=== PATIENT | male | born 1960 | race Hispanic/Latino ===

== ENCOUNTER 2018-08-11 06:49 | Day surgery (SDC) | payer BC ==
[2018-08-10 13:50] LABS: Absolute Monocytes 0.8 K/uL (0.1-1.3); Basophils % 0.9 % (0-1.3); Eosinophils % 2.3 % (0-4.4); Hematocrit 42.6 % (39.6-49.0); Lymphocytes % 22.2 % (15.3-44.8); MCH 30.5 pg (27.0-35.0); MPV 10.9 fL (7.6-11.3); Monocytes % 8.8 % (3.3-12.3); RBC Red Blood Cell Count 4.95 M/uL (4.33-5.43)
[2018-08-10 13:55] LABS: Potassium 3.9 mmol/L (3.5-5.1)
--- NOTE | 2018-08-10 14:00 | RAD REPORT ---
EXAM DESCRIPTION: RAD - Chest Pa And Lat (2 Views) - 08/10/2018 1:50 pm CLINICAL HISTORY: Preop chest, facial soft tissue mass removal pending, hypertension history COMPARISON: October 2016 TECHNIQUE: PA and lateral views of the chest were obtained. FINDINGS: The lungs are clear of mass, failure or focal infiltrate. Chronic interstitial lung diseas e is present and stable. Heart size is normal and central vasculature is within normal limits. No pleural effusion or pneumothorax seen. No acute bony finding noted. No aortic abnormality. IMPRESSION: No acute cardiopulmonary process. Prominent interstitial lung markings similar to comparison.
--- NOTE | 2018-08-10 17:45 | EKG ---
Test Date: 2018-08-10 Test Time: 13:32:32 Chair Inspector And Leveler: AG/S MEASUREMENT RESULTS: Intervals: Rate: 60 AK: 184 QRSD: 116 QT: 410 QTc: 410 [place]: P: 27 AK: 184 QRS: -38 T: 70 INTERPRETIVE STATEMENTS: Normal sinus rhythm Left axis deviation Nonspecific T wave abnormality Abnormal ECG Compared to ECG 10/26/2016 16:19:50 T-wave abnormality now present Myocardial infarct finding no longer present Electronically Signed On 08-10-18 17:44:57 CARNIVAL WORKER by Glenn Brantley
--- OUTSIDE RECORDS SUMMARY | 2018-08-11 06:51 | XMS REPORT | Continuity of Care Document ---
:1960 Author Organization Interface Problems Problem Status Onset Classification Date Comments Source Date Reported Z12.11 Active 06/23/20 [place] 18 R10.9 - Active 06/24/20 [facility] UNSPECIFIED 17 [place] ABDOMINAL PAIN PreDiabetes Active Problem 02/26/2018 [facility] Diabetes Active Problem 02/26/2018 [facility] Group Hypertension Active Problem 02/26/2018 [facility] Obesity Active Problem 02/26/2018 [facility] Onychomycosis Active Problem 02/26/2018 [facility] Group Medications Medication Details Route Status Patient Ordering Order Source Instructions Provider Date carvedilol 6.25 6.25 mg=1 tab, Active MH mg oral tablet PO, BID, for 018 Medical blood Group pressure, # 180 tab, 1 Refill(s), Pharmacy: [id number], portuguese label 24 HR Metformin 750 mg=1 tab, Active MH hydrochloride PO, Dinner, 018 Medical 750 MG Extended with evening Group Release Tablet meal to prevent diabetes, # 90 tab, 3 Refill(s), Pharmacy: [facility] [id number], portuguese label Blood Pressure 1 ea, MISC, Active Monitor Upper ONCE, any 018 Medical Arm Misc/Other preferred Group brand to check BP once a day as directed for Hypertension I10, # 1 ea, 0 Refill(s) terbinafine 250 250 mg=1 tab, Active MH mg oral tablet PO, Daily, for 018 Medical toenails, X 90 Group day, # 90 tab, 0 Refill(s), Pharmacy: [facility] [id number], portuguese label carvedilol 6.25 See Active MH mg oral tablet Instructions, 018 Medical RAMAKRISHNA NICOLLE Group TABLETA POR LA BOCA DOS VECES AL RYAN(CADA 12 HORAS) PARA PRESSION MITCHEL, # 60 tab, 0 Refill(s), Pharmacy: [facility] [id number] carvedilol 6.25 6.25 mg=1 tab, Inactive MH mg oral tablet PO, BID, for 018 Medical blood Group pressure, # 60 tab, 0 Refill(s), Pharmacy: [facility] [id number], portuguese label carvedilol 6.25 6.25 mg=1 tab, Active MH mg oral tablet PO, BID, for 018 Medical blood Group pressure, # 180 tab, 1 Refill(s), Pharmacy: [facility] [id number], portuguese label carvedilol 6.25 6.25 mg=1 tab, Active MH mg oral tablet PO, BID, # 60 017 Medical tab, 0 Group Refill(s), Pharmacy: [facility] [id number] Allergies, Adverse Reactions, Alerts Substance Category Reaction Severity Reaction Status Date Comments Source type Reported lisinopril Assertion Cough, NOS Drug Active allergy Medical Group penicillins Assertion Anaphylaxis Drug Active allergy Medical Group Immunizations Immunization Date Given Site Status Last Comments Source Updated pneumococcal 02/23/2018 Left completed [facility] 23-valent vaccine Deltoid Group zoster vaccine 01/13/2017 Right Upper completed [place] Result [facility] live<sup>1</sup> Arm Comment: PT Gayathri waited 10 , Medical minutes Group after vaccine no pain,or adverse reaction seen Results Order Results Value Reference Date Interpretation Comments Source Name Range Renal Renal PROCEDURE: RENAL STONE CT 06/24 - [facility] CT /2016 - [place] [facility] CLINICAL INDICATION: R10.9, M54.5. Left flank pain, acute left-sided low back pain. Read by: Robby Ham MD Dictated Date/time: 06/24/17 14:22 Electronically Signed by: Robby Ham MD 06/24/17 15:03 FINAL REPORT COMPARISON: None. TECHNIQUE: Unenhanced axial helical CT images of the abdomen and pelvis were performed. Reformatted coronal and sagittal images are available. CT Radiation Dose DLP 961.60 mGy-cm. Please note that lack of intravenous contrast limits evaluation of the organs and vasculature. Lack of oral contrast limits evaluation of the bowel. FINDINGS: LUNG BASES: There is mild elevation of the left diaphragm. Minimal dependent subsegmental atelectasis in both lower lobes. The heart size is upper limits of normal. ORGANS: There is diffuse fatty infiltration of the liver. The liver is mildly enlarged measuring a maximal craniocaudal dimension of approximately 18 cm. No demonstrable abnormality of the gallbladder, pancreas, spleen, adrenal glands and kidneys. No demonstrable urinary tract calculus. No hydronephrosis. BOWEL: There is a nonobstructive bowel gas pattern. Food debris in the lumen of the stomach limiting evaluation of the stomach. Mild colonic diverticulosis primarily involving the sigmoid colon without demonstrable acute diverticulitis. No additional demonstrable bowel abnormality. Normal appendix. PERITONEUM: There is no free intraperitoneal air or ascites. RETROPERITONEUM: The caliber of the abdominal aorta is within normal limits. There is no pathologic retroperitoneal lymphadenopathy. PELVIS: Mild enlargement of the prostate gland measuring a maximal diameter of approximately 5 cm containing a small number of subcentimeter central calcifications. No demonstrable abnormality of the se keeley vesicles or poorly distended urinary bladder. Mild fatty prominence of the mid to inferior aspect of the right spermatic cord measuring a maximal diameter of approximately 1.7 cm may be due to nor mal variation or a lipoma. Mild fatty prominence of the entire length of the visualized left spermatic cord measuring a maximal diameter of approximately 2.1 cm may be due to normal variation, a lipoma or herniation of fat. Minimal calcification of the left internal iliac artery. MUSCULOSKELETAL: Tiny umbilical hernia containing fat measuring a width of approximately 9 mm. Degenerative changes of the spine and both sacroiliac joints. Spinal stenosis at L4-L5 secondary to degener ative changes. This would be better assessed with a lumbar spine MRI. Small number of scattered subcentimeter sclerotic foci in the marrow of the pelvis likely benign bone islands. Few tiny cysts in the marrow of the right femoral head. IMPRESSION: 1. No demonstrable urinary tract calculus. No hydronephrosis. 2. Fatty infiltration of the liver. 3. Mild hepatomegaly. 4. Colonic diverticulosis without demonstrable acute diverticulitis. 5. Enlarged prostate gland. 6. Mild fatty prominence of the spermatic cords. Primary differential considerations as described above. 7. Tiny umbilical hernia containing fat. 8. Degenerative changes of the spine and sacroiliac joints. SL: 16 Vital Signs Vital Sign Value Date Comments Source Systolic (mm Hg) 153 02/23/2018 [facility] Group Diastolic (mm Hg) 90 02/23/2018 [facility] Group Height 162.56 cm 02/23/2018 Medical Group Weight 103.324 02/23/2018 Medical Group BMI Calculated 39.1 02/23/2018 Medical Group Heart Rate 65 02/23/2018 [facility] Group Temperature Oral (F) 98.5 F 02/23/2018 Medical Group Systolic (mm Hg) 140 09/04/2017 Medical Group Diastolic (mm Hg) 94 09/04/2017 Medical Group Temperature Oral (F) 97.6 F 09/04/2017 Medical Group Heart Rate 64 09/04/2017 Medical Group Weight 100.455 09/04/2017 Medical Group BMI Calculated 36.85 09/04/2017 Medical Group Height 165.1 cm 09/04/2017 Medical Group Systolic (mm Hg) 173 09/04/2017 Medical Group Diastolic (mm Hg) 102 09/04/2017 Medical Group Encounters Location Location Encounter Encounter Reason Attending ADM DC Status Source Details Type Number For Provider Date Date Visit Outpatient [id number] BEKA 10/31 [facility] [place] Out[place] [id number] BEKA 01/13 [facility] [place] Outpatient [id number] BEKA 06/02 [facility] [place] Outpatient [id number] AKUVI 06/19 [facility] [place] [facility] Outpatient [id number] AKUVI 06/24 [facility] [place] [facility] Outpt Diag [id number] Akuvi 06/24 06/25 [facility] [place] [facility] Phone [id number] 08/14 08/16 Primary Message /2016 [facility] Outpatient [id number] BEKA 09/04 [facility] [id number] Beka 09/04 09/05 Primary Vences Jr /2017 [facility] Phone [id number] 02/03 02/05 Primary Message /2017 [facility] Outpatient [id number] BEKA 02/23 [facility] Outpatient [id number] Beka 02/23 02/24 Primary Vences /2017 [facility] Outpatient [id number] BEKA 03/19 Active [facility] [place] Outpatient [id number] BEKA 05/14 Active [facility] [place] Outpatient [id number] MOHUMMED 06/17 [facility] [place] Outpatient [id number] [facility] 07/02 [facility] [place] Procedures Procedure Code Date Perfomer Comments Source Colonoscopy and [id number] 08/31/2012 + polyps. [facility] biopsy of repeat 5 [place] colon<sup>1</sup> years Colonoscopy and [id number] 08/31/2012 + polyps. Medical Group biopsy of repeat 5 colon<sup>1</sup> years Appendectomy [id number] [facility] [place] Hernia, inguinal, [id number] [facility] left [place] Appendectomy [id number] Medical Group Hernia, inguinal, [id number] Medical Group left
--- OUTSIDE RECORDS SUMMARY | 2018-08-11 06:51 | XMS REPORT | Summary of Care ---
:1960 Author Organization [facility] Address [address] [address]- Encounter HQ Pantera_que(FIN) [id number] Date(s): 06/24/17 - 06/24/17 [facility] [address] [facility] [place] [address]- [phone] Discharge Disposition: Home or Self Care Attending Physician: Melquiades Shi MSN, RN, COLOR PRINT INSPECTOR-C Vital Signs No data available for this section Problem List Condition Effective Dates Status Health Status Informant PreDiabetes(Confirmed) Active Hypertension(Confirmed) Active Obesity(Confirmed) Active Allergies, Adverse Reactions, Alerts Substance Reaction Severity Status lisinopril Cough, NOS Active penicillins Anaphylaxis Active Medications No data available for this section Results No data available for this section Immunizations Given and Recorded Vaccine Date Status Refusal Reason zoster vaccine live1 01/13/17 Given 1Result Comment: PT waited 10 minutes after vaccine no pain,or adverse reaction seen Procedures Procedure Date Related Diagnosis Body Site Colonoscopy and biopsy of colon1 2012 Appendectomy Hernia, inguinal, left 1+ polyps. 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 Frequency: 1-2 times per week.2 Smoking Status Never smoker; Exposure to Tobacco Smoke None; Cigarette Smoking Last 365 Days No; Reg Smoking Cessation Counseling No 1Married. 3 children.24 drinks per week Assessment and Plan No data available for this section
--- OUTSIDE RECORDS SUMMARY | 2018-08-11 06:52 | XMS REPORT | Summary of Care ---
:1960 Author Organization [facility] Address [address] [place] [address], [address] [address]- Encounter HQ Michael(FIN) [id number] Date(s): 02/23/18 - 02/23/18 [facility] [address] [place] [address], [address] [address]- [phone] Discharge Disposition: Home or Self Care Attending Physician: Jacobo Narvaez MD Vital Signs Most recent to oldest [Reference Range]: 1 Height 162.56 cm (02/23/18 10:50 AM) Temperature Oral [96.4-99.1 DegF] 98.5 DegF (02/23/18 10:50 AM) Blood Pressure [90-140/60-90 mmHg] 153/90 mmHg *HI* (02/23/18 10:50 AM) Peripheral Pulse Rate [60-100 bpm] 65 bpm (02/23/18 10:50 AM) Weight 103.324 kg (02/23/18 10:50 AM) Body Mass Index 39.1 m2 (02/23/18 10:50 AM) Problem List Condition Effective Dates Status Health Status Informant PreDiabetes(Confirmed) Active Diabetes(Confirmed) Active Hypertension(Confirmed) Active Obesity(Confirmed) Active Onychomycosis(Confirmed) Active Allergies, Adverse Reactions, Alerts Substance Reaction Severity Status penicillins Anaphylaxis Active lisinopril Cough, NOS Active Medications Blood Pressure Monitor Upper Arm Misc/Other 1 ea, MISC, ONCE, any preferred brand to check BP once a day as directed for Hypertension I10, # 1 ea, 0 Refill(s) Start Date: 02/23/18 Status: Orderedcarvedilol 6.25 mg oral tablet 6.25 mg=1 tab, PO, BID, for blood pressure, # 180 tab, 1 Refill(s), Pharmacy: [id number], macanese label Start Date: 02/23/18 Status: OrderedmetFORMIN 750 mg oral tablet, extended release 750 mg=1 tab, PO, Dinner, with evening meal to prevent diabetes, # 90 tab, 3 Refill(s), Pharmacy: [facility] [id number], macanese label Start Date: 02/23/18 Status: Orderedterbinafine 250 mg oral tablet 250 mg=1 tab, PO, Daily, for toenails, X 90 day, # 90 tab, 0 Refill(s), Pharmacy : [facility] [id number], macanese label Start Date: 02/23/18 Stop Date: 05/24/18 Status: Ordered Results No data available for this section Immunizations Given and Recorded Vaccine Date Status Refusal Reason pneumococcal 23-valent vaccine 02/23/18 Given zoster vaccine live1 01/13/17 Given 1Result Comment: PT waited 10 minutes after vaccine no pain,or adverse reaction seen Procedures Procedure Date Related Diagnosis Body Site Status Colonoscopy and biopsy of colon2012 Completed Appendectomy Completed Hernia, inguinal, left Completed 1+ polyps. 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 Frequency: 1-2 times per week.2 Smoking Status Never smoker; Exposure to Tobacco Smoke None; Cigarette Smoking Last 365 Days No; Reg Smoking Cessation Counseling No entered on: 02/23/18 1Married. 3 children.24 drinks per week Assessment and Plan No data available for this section
--- OUTSIDE RECORDS SUMMARY | 2018-08-11 06:52 | XMS REPORT | Summary of Care ---
:1960 Author Organization [facility] Primary Care [facility] Address [address] [place] [address], [address] [address]- Encounter HQ Pantera_que(FIN) [id number] Date(s): 09/04/17 - 09/04/17 [facility] [address] [place] [address], [address] [id number]- [phone] Discharge Disposition: Home or Self Care Attending Physician: Jacobo Narvaez MD Vital Signs Most recent to oldest [Reference Range]: 1 2 Height 165.1 cm (09/04/17 8:27 AM) Temperature Oral [96.4-99.1 DegF] 97.6 DegF (09/04/17 8:27 AM) Blood Pressure [90-140/60-90 mmHg] 140/94 mmHg 173/102 mmHg (09/04/17 8:34 AM) *HI* (09/04/17 8:27 AM) Peripheral Pulse Rate [60-100 bpm] 64 bpm (09/04/17 8:27 AM) Weight 100.455 kg (09/04/17 8:27 AM) Body Mass Index 36.85 m2 (09/04/17 8:27 AM) Problem List Condition Effective Dates Status Health Status Informant PreDiabetes(Confirmed) Active Hypertension(Confirmed) Active Obesity(Confirmed) Active Allergies, Adverse Reactions, Alerts Substance Reaction Severity Status penicillins Anaphylaxis Active lisinopril Cough, NOS Active Medications carvedilol 6.25 mg oral tablet 6.25 mg=1 tab, PO, BID, for blood pressure, # 180 tab, 1 Refill(s), Pharmacy: [facility] [id number], comoran label Start Date: 09/04/17 Status: Ordered Results No data available for this section Immunizations Given and Recorded Vaccine Date Status Refusal Reason zoster vaccine live1 5/16/17 Given 1Result Comment: PT waited 10 minutes after vaccine no pain,or adverse reaction seen Procedures Procedure Date Related Diagnosis Body Site Colonoscopy and biopsy of colon1 2012 Appendectomy Hernia, inguinal, left 1+ polyps. 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 Frequency: 1-2 times per week.2 Smoking Status Never smoker; Exposure to Tobacco Smoke None; Cigarette Smoking Last 365 Days No; Reg Smoking Cessation Counseling No 1Married. 3 children.24 drinks per week Assessment and Plan No data available for this section
--- OUTSIDE RECORDS SUMMARY | 2018-08-11 06:52 | XMS REPORT | Summary of Care ---
:1960 Author Organization [facility] Primary Care [facility] Address [address] [place] [address], [address] [address]- Encounter HQ Pantera_que(FIN) [id number] Date(s): 09/04/17 - 09/04/17 [facility] [address] [place] [address], [address] [address]- [phone] Discharge Disposition: Home or Self Care Attending [...] pressure, # 180 tab, 1 Refill(s), Pharmacy: [facility] [id number], slovak label Start Date: 09/04/17 Status: Ordered Results No data available for this section Immunizations Given and Recorded Vaccine Date Status Refusal Reason zoster vaccine live1 5/16/17 Given 1Result Comment: PT waited 10 minutes after vaccine no pain,or adverse reaction seen Procedures Procedure Date Related Diagnosis Body Site Status Colonoscopy and biopsy of colon1 2012 Completed Appendectomy Completed Hernia, inguinal, left Completed 1+ polyps. 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 Frequency: 1-2 times per week.2 Smoking Status Never smoker; Exposure to Tobacco Smoke None; Cigarette Smoking Last 365 Days No; Reg Smoking Cessation Counseling No entered on: 09/04/17 1Married. 3 children.24 drinks per week Assessment and Plan No data available for this section
--- OUTSIDE RECORDS SUMMARY | 2018-08-11 06:52 | XMS REPORT | Summary of Care ---
:1960 Author Organization [facility] Primary Care [facility] Address [address] [place] [address], [address] [place] [address]- Encounter HQ Danyntr_que(FIN) [id number] Date(s): 08/14/17 - 08/15/17 [facility] [address] [place] [address], [address] [place] [address]- [phone] Vital Signs No data available for this section Problem List Condition Effective Dates Status Health Status Informant PreDiabetes(Confirmed) Active Hypertension(Confirmed) Active Obesity(Confirmed) Active Allergies, Adverse Reactions, Alerts Substance Reaction Severity Status penicillins Anaphylaxis Active lisinopril Cough, NOS Active Medications carvedilol 6.25 mg oral tablet 6.25 mg=1 tab, PO, BID, # 60 tab, 0 Refill(s), Pharmacy: [facility] [id number] Start Date: 08/15/17 Status: Ordered Results No data available for [...] Type Response Employment/School Status: Employed. 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 Frequency: 1-2 times per week.2 Smoking Status Never smoker; Exposure to Tobacco Smoke None; Cigarette Smoking Last 365 Days No; Reg Smoking Cessation Counseling No 1Married. 3 children.24 drinks per week Assessment and Plan No data available for this section
--- OUTSIDE RECORDS SUMMARY | 2018-08-11 06:52 | XMS REPORT | Summary of Care ---
:1960 Author Organization [facility] Address [address] [place] [address], [address] [address]- Encounter HQ Encntr_alimichelle(FIN) [id number] Date(s): 02/03/18 - 02/04/18 [facility] [address] [place] [address], [address] [address] [phone] Vital Signs No data available for this section Problem List Condition Effective Dates Status Health Status Informant PreDiabetes(Confirmed) Active Hypertension(Confirmed) Active Obesity(Confirmed) Active Allergies, Adverse Reactions, Alerts Substance Reaction Severity Status penicillins Anaphylaxis Active lisinopril Cough, NOS Active Medications carvedilol 6.25 mg oral tablet 6.25 mg=1 tab, PO, BID, for blood pressure, # 60 tab, 0 Refill(s), Pharmacy: [facility], tristanian label Start Date: 02/04/18 Stop Date: 02/04/18 Status: Completedcarvedilol 6.25 mg oral tablet See Instructions, RAMAKRISHNA NICOLLE TABLETA POR LA BOCA DOS VECES AL RYAN(CADA 12 HORAS) PARA PRESSION MITCHEL, # 60 tab, 0 Refill(s), Pharmacy: [facility] [id number] Start Date: 02/04/18 Status: Ordered Results No data available for [...] Type Response Employment/School Status: Employed. 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 Frequency: 1-2 times per week.2 Smoking Status Never smoker; Exposure to Tobacco Smoke None; Cigarette Smoking Last 365 Days No; Reg Smoking Cessation Counseling No entered on: 09/04/17 1Married. 3 children.24 drinks per week Assessment and Plan No data available for this section
[2018-08-11] MEDS ORDERED: CIPROFLOXACIN 400mg IV 400 MG/200 ML BAG IV ONE (07:29)
[2018-08-11] MEDS ORDERED: Ringers Lactate 1,000 ML IV ONE (07:29)
[2018-08-11] MEDS ORDERED: MIDAZOLAM HCL 2 MG/2 ML INJ ONE (08:14)
[2018-08-11] MEDS ORDERED: PROPOFOL 200 MG/20 ML VIAL IV ONE (08:14)
[2018-08-11] MEDS ORDERED: FENTANYL CITR 100 MCG/2 ML ONE (08:14)
[2018-08-11] MEDS ORDERED: LIDOCAINE 2% MPF 5 ML VIAL ONE (08:15)
[2018-08-11] MEDS ORDERED: KETOROLAC 30 MG/ML INJ ONE (09:40)
--- NOTE | 2018-08-11 09:49 | P.BOP ---
Preoperative diagnosis: right facial temporal tender subQ mass Postoperative diagnosis: same Primary procedure: Excisional biopsy of right facial temporal tender subQ mass 6 x 4.5 cm Estimated blood loss: <20cc Specimen: mass, Findings: mass with some cystic component Anesthesia: General Complications: None Transferred to: Recovery Room Condition: Good
[2018-08-11] MEDS ORDERED: CODEINE 30MG/APAP 300MG TAB ONE (11:02)
--- NOTE | 2018-08-25 13:29 | DS ---
Date of Discharge: 08/11/2018 Diagnosis: Right facial temporal tender subcutaneous mass. Procedure: Excisional biopsy of right facial temporal tender subcutaneous. Disposition: Home. Activity: As tolerated. No heavy lifting. Discharge Instructions: Follow up in my office in 1 week. Call for appointment [phone]. Keep area dry for 48 hours, then may shower. Cold compresses over the area for the next 24 hours. Medications: See orders. TIERA/AJAY Voice ID: [id number] Report ID: [id number]
--- NOTE | 2018-08-25 13:29 | OP ---
Date of Procedure: 08/11/2018 Surgeon: Easton Garcia MD Preoperative Diagnosis: Right facial temporal tender subcutaneous mass. Postoperative Diagnosis: Right facial temporal tender subcutaneous mass. Procedure: Excisional biopsy of right facial temporal tender subcutaneous mass, 6 x 4.5 cm. Anesthesia: General. Findings: The patient has a mass with a cystic component, it is a combination of the 2. Goes into t he anterior area of the ear right in the temporal region, it is large, it is attached to the muscle i tself, does not penetrate the muscle. Indications: This is the case of a male who comes to us with a tender, increasing, enlarged temporal mass. The patient wants that excised, tender, given his pain and discomfort. Benefits, alternative s, and risks of excision were fully explained to the patient, which include but not limited to infect ion, bleeding, damage to adjacent structures, anesthesia complication, recurrence, VT, and even . He also understands this may not relieve any symptoms. He might need more than one surgical inter vention. He has some sensory deficit in that area. He was advised to discuss that with his neurolog ist. Description Of Procedure: The patient was brought to the operating room, placed in supine position. Anesthesia was done without complication in holding area. The patient marked the area with me, so w e prepped the area in usual sterile fashion. Time-out was called. An incision was made in the skin and we went to the subcutaneous tissue. We noticed this area to be large, it was thin, but since the patient is under anesthesia, we were able to carefully with blunt dissection identify the mass and r emove it completely. Some of that mass is attached to the fascia of the muscle, but the muscle is in tact. The mass was excised. When we put it all together, it was about 6 x 4.5 cm. The area was irr igated. Hemostasis obtained. This was closed in layers using the 3-0 chromic after injecting local anesthetic. The patient tolerated the procedure well. The masses have some cystic and solid compone nt to it. Etiology of that is unknown. He was sent for the pathologist. The patient tolerated the procedure well. Pressure dressing applied over the area. The patient was sent to Recovery in stable condition. TIERA/AJAY Voice ID: [id number] Report ID: [id number]
== END 2018-08-11 11:28 | disposition home or self-care (01) ==
LOC: OR 06:49
PROVIDERS: ATTEND Surgery
PROC: 0JB10ZZ Excision of Face Subcutaneous Tissue and Fascia, Open Approach (ICD-10-PCS; principal; 2018-08-11 08:45)
DX: R22.0 Localized swelling, mass and lump, head (principal); I10 Essential (primary) hypertension; Z88.0 Allergy status to penicillin
CPT/HCPCS: 36415; 71046; 80048; 85025; 88304; 88305; 93005; J0744; J2250; J2704; J3010

== ENCOUNTER 2019-01-24 07:19 | Emergency (ER) | payer BC ==
--- OUTSIDE RECORDS SUMMARY | 2019-01-24 07:23 | XMS REPORT | Continuity of Care Document ---
:1960 Author Organization Interface Problems Problem Status Onset Classification Date Comments Source Date Reported Encounter for 07/08/20 01/19/2019 [facility] screening for 18 malignant neoplasm of colon Z12.11 Active 06/23/20 [place] 18 R10.9 - Active 06/24/20 [facility] UNSPECIFIED 17 [place] ABDOMINAL PAIN PreDiabetes Resolved Problem 01/19/2019 [facility] Hypertension Active Problem 01/19/2019 [facility] Obesity Active Problem 01/19/2019 [facility] Diabetes Active Problem 02/26/2018 [facility] Group Onychomycosis Active Problem 01/19/2019 [facility], [place] DM (<span Active Problem 01/19/2019 Medical ID="[id number]" Group, >Confirmed</span> [place] ) Diabetic Active Problem 01/19/2019 [facility] autonomic Group, neuropathy [place] HTN (<span Active Problem 01/19/2019 Medical ID="[id number]" Group, >Confirmed</span> [place] ) Erectile disorder Active Problem 01/19/2019 Medical due to DIABETES Group, in male [place] Diverticulosis of 01/19/2019 [place] large intestine without perforation or abscess without bleeding Benign neoplasm 01/19/2019 [facility] of transverse colon Second degree 01/19/2019 [facility] hemorrhoids Benign neoplasm 01/19/2019 [facility] of rectum 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 Essential 01/19/2019 [facility] hypertension Obesity, 01/19/2019 [place] unspecified termination 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 01/19/2019 [facility] oral hypoglycemic drugs Allergy status to 01/19/2019 [facility] penicillin 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 Personal history 01/19/2019 [place] of colonic polyps Body mass index 01/19/2019 [place] 38.0-38.9, adult PreDiabetes Resolved Problem [facility]19[facility]2019 [facility] Active Problem 01/19/2019 [facility] Obesity Active Problem 01/19/2019 [facility] Medications Medication Details Route Status Patient Ordering Order Source Instructions Provider Date Sodium Chloride 500 mL, Rate: Inactive 0.9% IV 500 mL 25 ml/hr, 2017 [facility] Infuse over: 20 hr, Route: IV, Dosing Weight 102.727 kg, Total Volume: 500, Start date: 07/02/18 12:27:00 CDT, Duration: 1 day, Stop date: 07/03/18 12:26:00 CDT, 2.19, m2 Hydrochlorothiazide See No Longer Medical 25 MG Oral Tablet Instructions, Active 2018 Group # 30 tab, Refill(s) 1, TAKE 1 TABLET BY MOUTH DAILY NEEDED FOR SWELLING, Pharmacy: [facility] [id number] 24 HR Metformin 750 mg=1 tab, Active Medical hydrochloride 750 PO, Dinner, 2018 Group MG Extended Release with evening Tablet meal FOR diabetes, # 90 tab, 3 Refill(s), Pharmacy: [facility] [id number], [place] label. ; notice correction to SIG 24 HR Metformin 750 mg=1 tab, No Longer Medical hydrochloride 750 PO, Dinner, Active 2018 Group MG Extended Release with evening Tablet meal to prevent diabetes, # 90 tab, 3 Refill(s), Pharmacy: [facility] [id number], [place] label carvedilol 6.25 mg 6.25 mg=1 Active Medical oral tablet tab, PO, BID, 2018 Group for blood pressure, # 180 tab, 1 Refill(s), Pharmacy: [facility] [id number], [place] label Hydrochlorothiazide 25 mg=1 tab, No Longer Medical 25 MG Oral Tablet PO, Daily, Active 2018 Group NEEDED FOR SWELLING, # 30 tab, 1 Refill(s), Pharmacy: [facility] [id number], [place] label sildenafil 100 MG 100 mg=1 tab, Active Medical Oral Tablet PO, Daily, 2018 Group [Viagra] PRN for erectile dysfunction, Take 30 minutes prior to intercourse, # 6 tab, 11 Refill(s), Pharmacy: [facility] [id number] Triamcinolone 1 appl, TOP, No Longer Medical Acetonide 0.25 BID, apply a Active 2018 Group MG/ML Topical Cream thin film to the itchy area as needed, # 15 gm, 2 Refill(s), Pharmacy: [facility] [id number] carvedilol 6.25 mg 6.25 mg=1 Active Medical oral tablet tab, PO, BID, 2017 Group for blood pressure, # 180 tab, 1 Refill(s), Pharmacy: [facility] [id number], [place] label 24 HR Metformin 750 mg=1 tab, Active Medical hydrochloride 750 PO, Dinner, 2018 Group MG Extended Release with evening Tablet meal to prevent diabetes, # 90 tab, 3 Refill(s), Pharmacy: [facility] [id number], [place] label Blood Pressure 1 ea, MISC, Active Medical Monitor Upper Arm ONCE, any 2018 Group Misc/Other preferred brand to check BP once a day as directed for Hypertension I10, # 1 ea, 0 Refill(s) terbinafine 250 mg 250 mg=1 tab, Active Medical oral tablet PO, Daily, 2017 Group for toenails, X 90 day, # 90 tab, 0 Refill(s), Pharmacy: [facility] [id number], [place] label carvedilol 6.25 mg See Active Medical oral tablet Instructions, 2018 Group RAMAKRISHNA NICOLLE TABLETA POR LA BOCA DOS VECES AL RYAN(CADA 12 HORAS) PARA PRESSION MITCHEL, # 60 tab, 0 Refill(s), Pharmacy: [facility] [id number] carvedilol 6.25 mg 6.25 mg=1 Inactive Medical oral tablet tab, PO, BID, 2017 Group for blood pressure, # 60 tab, 0 Refill(s), Pharmacy: [facility] [id number], [place] label carvedilol 6.25 mg 6.25 mg=1 Active Medical oral tablet tab, PO, BID, 2017 Group for blood pressure, # 180 tab, 1 Refill(s), Pharmacy: [facility] [id number], [place] label carvedilol 6.25 mg 6.25 mg=1 Active Medical oral tablet tab, PO, BID, 2017 Group # 60 tab, 0 Refill(s), Pharmacy: [facility] [id number] Allergies, Adverse Reactions, Alerts Substance Category Reaction Severity Reaction Status Date Comments Source type Reported lisinopril Assertion Cough, NOS Drug Active allergy Medical Group penicillins Assertion Anaphylaxis Drug Active allergy Medical Group Immunizations Immunization Date Site Status Last Comments Source Given Updated influenza virus Left completed [facility] vaccine, 8 Deltoid Comment: Group, inactivated<sup> patient [place] 1</sup> waited 15 minutes had no reaction pneumococcal Left completed [facility] 23-valent 8 Deltoid Group, vaccine [place] zoster vaccine Right Upper completed [facility] live<sup>1</sup> 7 Arm Comment: PT Gayathri,M waited 10 H Medical minutes Group after vaccine no pain,or adverse reaction seen zoster vaccine Right Upper completed [facility] live<sup>2</sup> 7 Arm Comment: PT Group, waited 10 [place] minutes after vaccine no pain,or adverse reaction seen Results Order Name Results Value Reference Date Interpretation Comments Source Range ELECTROLYT AGAP 13.6 meq/L 10.0 - 06/30 ES 20.0 [facility] ELECTROLYT eGFR 94 06/30 Result Comment: The eGFR is calculated using the CKD-EPI formula. In most young, healthy individuals the eGFR will be >90 mL/ min/1.73m2. The eGFR declines with age. An eGFR of 60-89 may be normal in ES mL/min/1.2018 some populations, particularly the elderly, for whom the CKD-EPI formula has not been extensively validated. Use of the eGFR is not recommended in the following populations: [place] 3m2 Individuals with unstable creatinine concentrations, including patients and those with serious co-morbid conditions. Patients with extremes in muscle mass or diet. The data above are obtained from the National Kidney Disease Education Program (NKDEP) which additionally recommends that when the eGFR is used in patients with extremes of body mass index for purposes of drug dosing, the eGFR should be multiplied by the estimated BMI. ELECTROLYT Creatinine 0.86 mg/dL 0.50 - 06/30 ES Lvl 1.40 /2017 [facility] ELECTROLYT Calcium Lvl 8.7 mg/dL 8.5 - 10.5 06/30 ES [facility] ELECTROLYT CO2 29 meq/L 24 - 32 06/30 ES [facility] ELECTROLYT Chloride 107 meq/L 95 - 109 06/30 ES Lvl [facility] ELECTROLYT Potassium 4.6 meq/L 3.5 - 5.1 06/30 ES Lvl [facility] ELECTROLYT Sodium Lvl 145 meq/L 135 - 145 06/30 [facility] ELECTROLYT BUN 13 mg/dL 7 - 22 06/30 ES [facility] ELECTROLYT Glucose Lvl 136 mg/dL 70 - 99 06/30 ES [facility] SPECIAL Hgb A1C 6.6 % <=5.6 % 06/30 CHEMISTRY [facility] Renal Renal Stone PROCEDURE: RENAL STONE CT 06/[address] [place] CLINICAL INDICATION: R10.9, M54.5. Left flank pain, [...] Value Date Comments Source Systolic (mm Hg) 135 07/02/2018 [facility] Diastolic (mm Hg) 74 07/02/2018 [facility] Respitory Rate 16 07/02/2018 [facility] Systolic (mm Hg) 135 07/02/2018 [facility] Diastolic (mm Hg) 74 07/02/2018 [facility] Respitory Rate 14 07/02/2018 [facility] Respitory Rate 15 07/02/2018 [facility] Systolic (mm Hg) 145 07/02/2018 [facility] Diastolic (mm Hg) 86 07/02/2018 [facility] Temperature Oral (F) 98.2 F 06/30/2018 [facility] Heart Rate 54 06/30/2018 [facility] Height 162.56 cm 06/30/2018 [facility] BMI Calculated 38.87 06/30/2018 [facility] Weight 102.727 06/30/2018 [facility] Heart Rate 64 06/17/2018 [facility] Temperature Oral (F) 98.4 F 06/17/2018 [facility] Systolic (mm Hg) 156 06/17/2018 [facility] Diastolic (mm Hg) 86 06/17/2018 [facility] BMI Calculated 39.7 06/17/2018 [facility] Weight 104.909 06/17/2018 [facility] Height 162.56 cm 06/17/2018 [facility] BMI Calculated 37.1 05/14/2018 [facility] Weight 104.261 05/14/2018 [facility] Systolic (mm Hg) 150 05/14/2018 [facility] Diastolic (mm Hg) 96 05/14/2018 [facility] Height 167.64 cm 05/14/2018 [facility] Temperature Oral (F) 97.6 F 05/14/2018 [facility] Heart Rate 58 05/14/2018 [facility] Systolic (mm Hg) 135 03/19/2018 [facility] Diastolic (mm Hg) 86 03/19/2018 [facility] Height 162.56 cm 03/19/2018 [facility] Temperature Oral (F) 97.3 F 03/19/2018 [facility] Weight 104.545 03/19/2018 [facility] Heart Rate 53 03/19/2018 [facility] BMI Calculated 39.56 03/19/2018 [facility] Systolic (mm Hg) 182 03/19/2018 [facility] Diastolic (mm Hg) 93 03/19/2018 [facility] Systolic (mm Hg) 153 02/23/2018 [facility] [...] Number For Provider Date Date Visit Outpatient [id number] BEKA 10/31 Active [facility] [place] [facility] [id number] BEKA 01/13 Active [facility] [place] [id number] BEKA 06/02 Active [facility] [place] Outpatient [id number] AKUVI 06/19 [facility] [place] [facility] Outpatient [id number] AKUVI 06/24 [facility] [place] [facility] Outpt Diag [id number] Akuvi 06/24 06/25 [facility] [place] [facility] Phone [phone] 08/14 08/16 Primary Message /2016 [facility] Outpatient [id number] BEKA 09/04 Active [facility] [place] [facility] Outpatient [id number] Beka 09/04 09/05 [facility] [phone] 02/03 02/05 Primary Message /2017 [facility] Outpatient [id number] BEKA 02/23 Active [facility] [place] [facility] Outpatient [id number] Beka 02/23 02/24 Primary [facility] Outpatient [id number] BEKA 03/19 Active [facility] [place] [facility] Outpatient [id number] Beka 03/19 03/20 Primary [facility] Outpatient [id number] BEKA 05/14 Active [facility] [place] [facility] Outpatient [id number] Beka 05/14 05/15 Primary [facility] Outpatient [id number] MOHUMMED 06/17 Active [facility] [place] [facility] Multi Outpatient [id number] Mohummed 06/17 06/18 Specialty Khani /2017 Medical [place] [facility] Outpatient [id number] MOHUMMED 07/02 [facility] Bedded [id number] [facility] 07/02 07/02 [place] [facility] Outpatient [id number] [facility] 07/02 07/03 [facility] Procedures Procedure Code Date Perfomer Comments Source Colonoscopy and [id number] 08/31/2012 + polyps. [facility] biopsy of repeat 5 [place] colon<sup>1</sup> years Colonoscopy and [id number] 08/31/2012 + polyps. Medical Group biopsy of repeat 5 colon<sup>1</sup> years Colonoscopy and [id number] 08/31/2012 + polyps. [facility] biopsy of repeat 5 colon<sup>1</sup> years Appendectomy [id number] [facility] [place] Hernia, inguinal, [id number] [facility] left [place] Appendectomy [id number] Medical Group Hernia, inguinal, [id number] Medical Group left Colonoscopy [id number] [facility] Appendectomy [id number] [place] Colonoscopy [id number] [place] Hernia, inguinal, [id number] [place] left
--- OUTSIDE RECORDS SUMMARY | 2019-01-24 07:23 | XMS REPORT | Summary of Care ---
:1960 Author Organization [facility] Care [facility] Address [address] [place] [address], [address] [place] [address]- Encounter HQ Pantera_que(FIN) [id number] Date(s): 05/14/18 - 05/14/18 [facility] [address] [facility] [address] [place] [address]- [phone] Discharge Disposition: Home or Self Care Attending Physician: Jacobo Narvaez MD Vital Signs Most recent to oldest [Reference Range]: 1 Height 167.64 cm (05/14/18 1:57 PM) Temperature Oral [96.4-99.1 DegF] 97.6 DegF (05/14/18 1:57 PM) Blood Pressure [90-140/60-90 mmHg] 150/96 mmHg *HI* (05/14/18 1:57 PM) Peripheral Pulse Rate [60-100 bpm] 58 bpm *LOW* (05/14/18 1:57 PM) Weight 104.261 kg (05/14/18 1:57 PM) Body Mass Index 37.1 m2 (05/14/18 1:57 PM) Problem List Condition Effective Dates Status Health Status Informant PreDiabetes(Confirmed) Resolved DM (diabetes mellitus)(Confirmed) Active Diabetic autonomic Active neuropathy(Confirmed) Hypertension(Confirmed) Active HTN (hypertension)(Confirmed) Active Obesity(Confirmed) Active Onychomycosis(Confirmed) Active 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(Confirmed) Allergies, Adverse Reactions, Alerts Substance Reaction Severity Status penicillins Anaphylaxis Active lisinopril Cough, NOS Active Medications carvedilol 6.25 mg oral tablet 6.25 mg=1 tab, PO, BID, for blood pressure, # 180 tab, 1 Refill(s), Pharmacy: [facility] [id number], [place] label Start Date: 05/14/18 Status: OrderedmetFORMIN 750 mg oral tablet, extended release 750 mg=1 tab, PO, Dinner, with evening meal to prevent diabetes, # 90 tab, 3 Refill(s), Pharmacy: [facility] [id number], [place] label Start Date: 05/14/18 Stop Date: 05/22/18 Status: DiscontinuedmetFORMIN 750 mg oral tablet, extended release 750 mg=1 tab, PO, Dinner, with evening meal FOR diabetes, # 90 tab, 3 Refill(s) , Pharmacy: [facility] [id number], [place] label. ; notice correction to SIG Start Date: 05/22/18 Status: Ordered Results No data available for this section Immunizations Given and Recorded Vaccine Date Status Refusal Reason influenza virus vaccine, inactivated1 05/14/18 Given pneumococcal 23-valent vaccine 02/23/18 Given zoster vaccine live2 01/13/17 Given 1Result Comment: patient waited 15 minutes had no [id number] Comment: PT waited 10 minutes after vaccine no pain,or adverse reaction seen Procedures Procedure Date Related Diagnosis Body Site Status Colonoscopy and biopsy of colon2012 Completed Appendectomy Completed Colonoscopy Completed Hernia, inguinal, left Completed 1+ polyps. 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 Frequency: 1-2 times per week.2 Smoking Status Never smoker; Type: Cigars; Exposure to Tobacco Smoke None; Cigarette Smoking Last 365 Days No; Reg Smoking Cessation Counseling No entered on: 07/02/18 1Married. 3 children.24 drinks per week Assessment and Plan No data available for this section
--- OUTSIDE RECORDS SUMMARY | 2019-01-24 07:23 | XMS REPORT | Summary of Care ---
:1960 Author Organization [facility] Address [address] [place] [address]- Care Team Providers Name Role Phone Jacobo Morales Jr Primary Care Physician Encounter HQ Encntr_que(FIN) [id number] Date(s): 06/17/18 - 06/17/18 [facility] [address] [facility] [address] [place] [address]- [phone] Discharge Disposition: Home or Self Care Attending Physician: Aylin Clayton MD Vital Signs Most recent to oldest [Reference Range]: 1 Height 162.56 cm (06/17/18 9:00 AM) Temperature Oral [96.4-99.1 DegF] 98.4 DegF (06/17/18 9:00 AM) Blood Pressure [90-140/60-90 mmHg] 156/86 mmHg *HI* (06/17/18 9:00 AM) Peripheral Pulse Rate [60-100 bpm] 64 bpm (06/17/18 9:00 AM) Weight 104.909 kg (06/17/18 9:00 AM) Body Mass Index 39.7 m2 (06/17/18 9:00 AM) Problem List Condition Effective Dates Status Health Status Informant PreDiabetes(Confirmed) Resolved DM (diabetes mellitus)(Confirmed) Active Diabetic autonomic Active neuropathy(Confirmed) Hypertension(Confirmed) Active HTN (hypertension)(Confirmed) Active Obesity(Confirmed) Active Onychomycosis(Confirmed) Active 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(Confirmed) Allergies, Adverse Reactions, Alerts Substance Reaction Severity Status penicillins Anaphylaxis Active lisinopril Cough, NOS Active Medications No Known Medications Results No data available for this section Immunizations Given and Recorded Vaccine Date Status Refusal Reason influenza virus vaccine, inactivated1 05/14/18 Given pneumococcal 23-valent vaccine 02/23/18 Given zoster vaccine live2 01/13/17 Given 1Result Comment: patient waited 15 minutes had no [id number] Comment: PT waited 10 minutes after vaccine no pain,or adverse reaction seen Procedures Procedure Date Related Diagnosis Body Site Status Colonoscopy and biopsy of colon1 2012 Completed Appendectomy Completed Colonoscopy Completed Hernia, inguinal, left Completed 1+ polyps. 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 Frequency: 1-2 times per week.2 Smoking Status Never smoker; Type: Cigars; Exposure to Tobacco Smoke None; Cigarette Smoking Last 365 Days No; Reg Smoking Cessation Counseling No entered on: 07/02/18 1Married. 3 children.24 drinks per week Assessment and Plan No data available for this section
--- OUTSIDE RECORDS SUMMARY | 2019-01-24 07:24 | XMS REPORT | Summary of Care ---
:1960 Author Organization [facility] Address [address] [place] [address]- Care Team Providers Name Role Phone Jacobo Morales Jr Primary Care Physician Encounter HQ Encntr_que(FIN) [id number] Date(s): 07/02/18 - 07/02/18 [facility] [address] [place] [address]- [phone] Discharge Disposition: Home or Self Care Attending Physician: Aylin Clayton MD Vital Signs No data available for this section Problem List Condition Effective Dates Status Health Status Informant PreDiabetes(Confirmed) Resolved DM (diabetes mellitus)(Confirmed) Active Diabetic autonomic Active neuropathy(Confirmed) Hypertension(Confirmed) Active HTN (hypertension)(Confirmed) Active Obesity(Confirmed) Active Onychomycosis(Confirmed) Active 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(Confirmed) Allergies, Adverse Reactions, Alerts Substance Reaction Severity Status penicillins Anaphylaxis Active lisinopril Cough, NOS Active Medications No data available for this section Results No data available for this section Immunizations Given and Recorded Vaccine Date Status Refusal Reason influenza virus vaccine, inactivated1 05/14/18 Given pneumococcal 23-valent vaccine 02/23/18 Given zoster vaccine live2 01/13/17 Given 1Result Comment: patient waited 15 minutes had no [id number] Comment: PT waited 10 minutes after vaccine no pain,or adverse reaction seen Procedures Procedure Date Related Diagnosis Body Site Status Colonoscopy and biopsy of colon2012 Completed Appendectomy Completed Colonoscopy Completed Hernia, inguinal, left Completed 1+ polyps. 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 Frequency: 1-2 times per week.2 Smoking Status Never smoker; Type: Cigars; Exposure to Tobacco Smoke None; Cigarette Smoking Last 365 Days No; Reg Smoking Cessation Counseling No entered on: 07/02/18 1Married. 3 children.24 drinks per week Assessment and Plan No data available for this section
--- OUTSIDE RECORDS SUMMARY | 2019-01-24 07:24 | XMS REPORT | Summary of Care ---
:1960 Author Organization [facility] Address [id number] [place] [address], [address] [address]- Encounter HQ Michael(FIN) [id number] Date(s): 03/19/18 - 03/19/18 [facility] [id number] [place] [address], [address] [address]- [phone] Discharge Disposition: Home or Self Care Attending Physician: Jacobo Narvaez MD Vital Signs Most recent to oldest [Reference Range]: 1 2 Height 162.56 cm (03/19/18 1:27 PM) Temperature Oral [96.4-99.1 DegF] 97.3 DegF (03/19/18 1:27 PM) Blood Pressure [90-140/60-90 mmHg] 135/86 mmHg 182/93 mmHg (03/19/18 1:51 PM) *HI* (03/19/18 1:27 PM) Peripheral Pulse Rate [60-100 bpm] 53 bpm *LOW* (03/19/18 1:27 PM) Weight 104.545 kg (03/19/18 1:27 PM) Body Mass Index 39.56 m2 (03/19/18 1:27 PM) Problem List Condition Effective Dates Status Health Status Informant PreDiabetes(Confirmed) Resolved DM (diabetes mellitus)(Confirmed) Active Diabetic autonomic Active neuropathy(Confirmed) Hypertension(Confirmed) Active HTN (hypertension)(Confirmed) Active Obesity(Confirmed) Active Onychomycosis(Confirmed) Active 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(Confirmed) Allergies, Adverse Reactions, Alerts Substance Reaction Severity Status penicillins Anaphylaxis Active lisinopril Cough, NOS Active Medications hydrochlorothiazide 25 mg oral tablet 25 mg=1 tab, PO, Daily, NEEDED FOR SWELLING, # 30 tab, 1 Refill(s), Pharmacy : [facility] [id number], botswanan label Start Date: 03/19/18 Stop Date: 05/25/18 Status: Completedhydrochlorothiazide 25 mg oral tablet See Instructions, # 30 tab, Refill(s) 1, TAKE 1 TABLET BY MOUTH DAILY NEEDED FOR SWELLING, Pharmacy: [facility] [id number] Start Date: 05/25/18 Stop Date: 06/30/18 Status: Completedtriamcinolone topical 0.025% cream 1 appl, TOP, BID, apply a thin film to the itchy area as needed, # 15 gm, 2 Refill(s), Pharmacy: [facility] [id number] Start Date: 03/19/18 Stop Date: 06/30/18 Status: CompletedViagra 100 mg oral tablet 100 mg=1 tab, PO, Daily, PRN for erectile dysfunction, Take 30 minutes prior to intercourse, # 6 tab, 11 Refill(s), Pharmacy: [facility] [id number] Start Date: 03/19/18 Status: Ordered Results No data available for this section Immunizations Given and Recorded Vaccine Date Status Refusal Reason influenza virus vaccine, inactivated1 05/14/18 Given pneumococcal 23-valent vaccine 02/23/18 Given zoster vaccine live2 01/13/17 Given 1Result Comment: patient waited 15 minutes had no [id number] Comment: PT waited 10 minutes after vaccine no pain,or adverse reaction seen Procedures Procedure Date Related Diagnosis Body Site Status Colonoscopy and biopsy of colon2012 Completed Appendectomy Completed Colonoscopy Completed Hernia, inguinal, left Completed 1+ polyps. 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 Frequency: 1-2 times per week.2 Smoking Status Never smoker; Type: Cigars; Exposure to Tobacco Smoke None; Cigarette Smoking Last 365 Days No; Reg Smoking Cessation Counseling No entered on: 07/02/18 1Married. 3 children.24 drinks per week Assessment and Plan No data available for this section
--- OUTSIDE RECORDS SUMMARY | 2019-01-24 07:24 | XMS REPORT | Summary of Care ---
:1960 Author Organization [facility] Address [address] [place], [place] [address]- Care Team Providers Name Role Phone Jacobo Morales Jr Primary Care Physician Encounter HQ Michael([facility]) [id number] Date(s): 07/02/18 - 07/02/18 [facility] [id number] [place] [address]- Encounter Diagnosis Encounter for screening for malignant neoplasm of colon (Final) - 07/07/18 Diverticulosis of large intestine without perforation or abscess without bleeding (Final) - Benign neoplasm of transverse colon (Final) - Second degree hemorrhoids (Final) - Benign neoplasm of rectum (Final) - Type 2 diabetes mellitus with diabetic autonomic (poly)neuropathy (Final) - Essential (primary) hypertension (Final) - Obesity, unspecified (Final) - 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 (Final) - Allergy status to penicillin (Final) - Other correction (current) drug therapy (Final) - Personal history of colonic polyps (Final) - Body mass index (BMI) 38.0-38.9, adult (Final) - Discharge Disposition: Home or Self Care Attending Physician: Aylin Clayton MD Admitting Physician: Aylin Clayton MD Referring Physician: Aylin Clayton MD Vital Signs Most recent to oldest 1 2 3 [Reference Range]: Height 162.56 cm (06/30/18 8:18 AM) Temperature Oral [96.4-99.1 98.2 DegF DegF] (06/30/18 8:18 AM) Blood Pressure [90-140/60-90 135/74 mmHg 135/74 mmHg 145/86 mmHg mmHg] (07/02/18 3:15 PM) (07/02/18 2:57 PM) *HI* (07/02/18 2:42 PM) Respiratory Rate [14-20 BRMIN] 16 BRMIN 14 BRMIN 15 BRMIN (07/02/18 3:15 PM) (07/02/18 2:57 PM) (07/02/18 2:42 PM) Peripheral Pulse Rate [60-100 54 bpm bpm] *LOW* (06/30/18 8:18 AM) Weight 102.727 kg (06/30/18 8:18 AM) Body Mass Index 38.87 m2 (06/30/18 8:18 AM) Problem List Condition Effective Dates Status Health Status Informant PreDiabetes(Confirmed) Resolved DM (diabetes mellitus)(Confirmed) Active Diabetic autonomic Active neuropathy(Confirmed) Hypertension(Confirmed) Active HTN (hypertension)(Confirmed) Active Obesity(Confirmed) Active Onychomycosis(Confirmed) Active 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(Confirmed) Allergies, Adverse Reactions, Alerts Substance Reaction Severity Status penicillins Anaphylaxis Active lisinopril Cough, NOS Active Medications Sodium Chloride 0.9% IV 500 mL 500 mL, Rate: 25 ml/hr, Infuse over: 20 hr, Route: IV, Dosing Weight 102.727 kg , Total Volume: 500, Start date: 07/02/18 12:27:00 CDT, Duration: 1 day, Stop date: 07/03/18 12:26:00 CDT, 2.19, m2 Start Date: 07/02/18 Stop Date: 07/02/18 Status: Discontinued Results Most recent to oldest [Reference Range]: 1 eGFR 94 mL/min/1.73m2 1 *NA* (06/30/18 8:23 AM) AGAP [10.0-20.0 mEq/L] 13.6 mEq/L (06/30/18 8:23 AM) BUN [7-22 mg/dL] 13 mg/dL (06/30/18 8:23 AM) Calcium Lvl [8.5-10.5 mg/dL] 8.7 mg/dL (06/30/18 8:23 AM) Chloride Lvl [95-109 mEq/L] 107 mEq/L (06/30/18 8:23 AM) CO2 [24-32 mEq/L] 29 mEq/L (06/30/18 8:23 AM) Creatinine Lvl [0.50-1.40 mg/dL] 0.86 mg/dL (06/30/18 8:23 AM) Glucose Lvl [70-99 mg/dL] 136 mg/dL *HI* (06/30/18 8:23 AM) Hgb A1C [<=5.6 %] 6.6 % *HI* (06/30/18 8:23 AM) Potassium Lvl [3.5-5.1 mEq/L] 4.6 mEq/L (06/30/18 8:23 AM) Sodium Lvl [135-145 mEq/L] 145 mEq/L (06/30/18 8:23 AM) 1Result Comment: The eGFR is calculated using the CKD-EPI formula. In most young , healthy individualsthe eGFR will be >90 mL/min/1.73m2. The eGFR declines with age. An eGFR of 60-89 may be normal insome populations, particularly the elderly, for whom the CKD-EPI formula has not been extensively validated. Use of the eGFR is not recommended in the following populations: Individuals with unstable creatinine concentrations, including patients and those with serious co-morbid conditions. Patients with extremes in muscle mass or diet. The data above are obtained from the National Kidney Disease Education Program ( NKDEP) which additionally recommends that when the eGFR is used in patients with extremes of body mass index for purposesof drug dosing, the eGFR should be multiplied by the estimated BMI. Immunizations Given and Recorded Vaccine Date Status Refusal Reason influenza virus vaccine, inactivated1 05/14/18 Given pneumococcal 23-valent vaccine 02/23/18 Given zoster vaccine live2 01/13/17 Given 1Result Comment: patient waited 15 minutes had no [id number] Comment: PT waited 10 minutes after vaccine no pain,or adverse reaction seen Procedures Procedure Date Related Diagnosis Body Site Status Colonoscopy and biopsy of colon1 2012 Completed Appendectomy Completed Colonoscopy Completed Hernia, inguinal, left Completed 1+ polyps. 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 Frequency: 1-2 times per week.2 Smoking Status Never smoker; Type: Cigars; Exposure to Tobacco Smoke None; Cigarette Smoking Last 365 Days No; Reg Smoking Cessation Counseling No entered on: 07/02/18 1Married. 3 children.24 drinks per week Assessment and Plan Extracted from: Title: History and Physical Author: Aylin Clayton MD Date: 07/02/18 I do recommend to proceed with colonoscopy based on the current recommendation and guidelines from [employer] and [facility] of colorectal surgeon.I had detailed discussion with the patient regarding the procedure and the bowel preparation. Procedure to be performed under LMAC anaesthesia, risks and benefits of the procedure were explained to the patient including bleeding, infection, pain, lung and heart complications, injuries to other s tructures in addition to bowel perforation, missing small polyps, possible need for further interventions or procedures including but not limited to laparotomy and colostomy. Bowel prep instructions wer e given to the patient. Patient expresses understanding andwishesto proceed with the planned procedure. 1.Encounter for screening colonoscopy(Z12.11) 2.Hx of colonic polyps(Z86.010)
[2019-01-24] MEDS ORDERED: NA CHLORIDE 0.9% 1,000 ML ONE (08:06)
[2019-01-24 08:29] LABS: Absolute Lymphocytes (CBC) 1.6 K/uL (0.7-4.9); Absolute Monocytes 0.7 K/uL (0.1-1.3); Absolute Neutrophil 5.4 K/uL (1.8-8.0); Basophils % 0.5 % (0-1.3); Eosinophils % 1.8 % (0-4.4); Hematocrit 47.5 % (39.6-49.0); Lymphocytes % 20.1 % (15.3-44.8); Monocytes % 9.3 % (3.3-12.3)
[2019-01-24 08:41] LABS: ALT/SGPT 21 U/L (12-78); AST/SGOT 12 U/L (15-37); Albumin 2.9 g/dL (3.4-5.0); Alkaline Phosphatase 57 U/L (45-117); BUN Blood Urea Nitrogen 19 mg/dL (7-18); Bicarbonate 27 mmol/L (21-32); Bilirubin Direct 0.1 mg/dL (0-0.2); Bilirubin Total 0.4 mg/dL (0.2-1.0); Glucose Level 132 mg/dL (74-106); NT PRO-BNP 515 pg/mL (<125); Potassium 3.8 mmol/L (3.5-5.1); Protein, Total 6.1 g/dL (6.4-8.2); Sodium Level 141 mmol/L (136-145); Troponin (Emerg Dept Use Only) 0.02 ng/mL (0.0-0.045)
[2019-01-24] MEDS ORDERED: IPRATROPIUM BROM 0.5MG/2.5ML ONE (09:22)
[2019-01-24] MEDS ORDERED: AZITHROMYCIN 250 MG TAB ONE (09:22)
[2019-01-24] MEDS ORDERED: METHYLPREDNISOLONE 125 MG INJ ONE (09:22)
[2019-01-24] MEDS ORDERED: ASPIRIN 81 MG CHEWABLE TABLET ONE (09:22)
[2019-01-24] MEDS ORDERED: LEVALBUTEROL 1.25 MG/3 ML NEB ONE (09:22)
[2019-01-24] MEDS ORDERED: CEFTRIAXONE/SWI 1gm 1 GM/10 ML SYR ONE (09:23)
[2019-01-24] MEDS ORDERED: predniSONE 20 MG TAB ONE (09:23)
--- NOTE | 2019-01-24 09:35 | RAD REPORT ---
EXAM DESCRIPTION: CT - Chest For Pe Angio - 01/24/2019 9:04 am CLINICAL HISTORY: Chest pain COMPARISON: 2016 TECHNIQUE: Dynamically enhanced axial 3 mm thick images of the chest were obtained during administra tion of <100> mL Isovue 370 IV contrast. Coronal and oblique reconstruction images were generated and reviewed. Exam utilizes a protocol for optimal evaluation of pulmonary arterial tree. Maximum intensity projections 3D imaging was utilized All CT scans are performed using dose optimization technique as appropriate and may include automated exposure control or mA/KV adjustment according to patient size. FINDINGS: A pulmonary embolus is not seen. A thoracic aortic aneurysm is not noted. A pleural effusion is not seen. A pericardial effusion is not seen. A lung consolidation is not present. Fatty liver IMPRESSION: Negative for a pulmonary embolism.
--- NOTE | 2019-01-24 09:42 | RAD REPORT ---
EXAM DESCRIPTION: Christy Single View01/24/2019 7:55 am CLINICAL HISTORY: Chest pain COMPARISON: January 24. FINDINGS: The lungs appear clear of acute infiltrate. The heart is upper limits normal size IMPRESSION: No acute abnormalities displayed
--- NOTE | 2019-01-24 09:48 | RAD REPORT ---
EXAM DESCRIPTION: Christy Pelayo (2 Views)01/24/2019 8:34 am CLINICAL HISTORY: Cough COMPARISON: January 24 FINDINGS: The lungs appear clear of acute infiltrate. The heart is upper limits normal size IMPRESSION: No acute abnormalities displayed
--- NOTE | 2019-01-24 09:49 | RAD REPORT ---
EXAM DESCRIPTION: USExtrem Venous W Compress Bil01/24/2019 9:43 am CLINICAL HISTORY: Bilateral leg swelling COMPARISON: none FINDINGS: The common femoral, superficial femoral, popliteal and posterior tibial veins bilaterally are compressible and demonstrate augmentation. Doppler demonstrates good flow. IMPRESSION: No evidence of deep venous thrombosis involving either lower extremity.
[2019-01-24 10:46] LABS: Urine Blood TRACE (NEG); Urine Glucose NEGATIVE (NEG); Urine Protein NEGATIVE (NEG); Urine pH 6.5 (5.0-7.0)
[2019-01-24] MEDS ORDERED: METOPROLOL TAR 25 MG TAB ONE (10:50)
--- NOTE | 2019-01-24 11:19 | ER ---
Nurse's Notes [facility] Name: Mathew Nowak Age: 58 yrs Sex: Male : 1960 Arrival Date: 01/24/2019 Time: 07:21 Bed 6 Private MD: Unknown, Unknown Diagnosis: Bronchitis, not specified as acute or chronic;Essential (primary) hypertension Presentation: 01/24 07:23 Presenting complaint: Patient states: cough and chest pain with cough since Thursday, sv Thursday and Thursday he started with sweating, muscle weakness, fatigue. Transition of care: patient was not received from another setting of care. Onset of symptoms was January 21, 2019. Care prior to arrival: None. 07:23 Method Of Arrival: Ambulatory sv 07:23 Acuity: KEILA 3 sv 07:30 Risk Assessment: Do you want to hurt yourself or someone else? Patient reports no bp desire to harm self or others. Initial Sepsis Screen: Does the patient meet any 2 criteria? No. Patient's initial sepsis screen is negative. Does the patient have a suspected source of infection? No. Patient's initial sepsis screen is negative. Triage Assessment: 07:30 General: Appears in no apparent distress. comfortable, Behavior is cooperative, bp appropriate for age, anxious. Pain: Complains of pain in chest. Historical: - Allergies: 07:25 PENICILLINS; sv - PMHx: 07:25 Hypertension; sv - PSHx: 07:25 right facial; sv - Immunization history:: Adult Immunizations up to date. - Social history:: Smoking status: Patient/guardian denies using tobacco. - Ebola Screening: : No symptoms or risks identified at this time. - Family history:: not pertinent. Screenin:31 Abuse screen: Denies threats or abuse. Denies injuries from another. Nutritional bp screening: No deficits noted. Tuberculosis screening: No symptoms or risk factors identified. Fall Risk None identified. Assessment: 07:30 General: Appears in no apparent distress. comfortable, obese, Behavior is cooperative, bp appropriate for age, anxious. Pain: Complains of pain in chest Pain does not radiate. Pain began gradually. Neuro: Level of Consciousness is awake, alert, obeys commands, Oriented to person, place, time, situation, Appropriate for age. Cardiovascular: Rhythm is sinus rhythm. Respiratory: Reports cough that is Airway is patent Respiratory effort is even, unlabored, Respiratory pattern is regular, symmetrical. GI: No signs and/or symptoms were reported involving the gastrointestinal system. : No signs and/or symptoms were reported regarding the genitourinary system. EENT: No deficits noted. Derm: No deficits noted. Musculoskeletal: Circulation, motion, and sensation intact. Range of motion: intact in all extremities. 08:36 Reassessment: ALL CURRENT ORDERS COMPLETED, VS STABLE ON MONITOR. RESULT SPENDING. bp 10:30 Reassessment: REPEAT CARDIAC ENZYMES IN PROCESS, RESULTS PENDING. VS STABLE ON MONITOR. bp 11:29 Reassessment: PT D/C HOME AMBULATORY WITH FAMILY, DX WITH BRONCHITIS. bp Vital Signs: 07:25 BP 148 / 84; Pulse 76; Resp 18; Temp 98.2(O); Pulse Ox 98% ; Weight 103.42 kg; Height 5 sv ft. 4 in. (162.56 cm); Pain 0/10; 08:37 BP 142 / 72; Pulse 73; Resp 15; Pulse Ox 98% ; bp 10:30 BP 137 / 79; Pulse 75; Resp 16; Temp 98.3; Pulse Ox 99% ; bp 07:25 Body Mass Index 39.14 (103.42 kg, 162.56 cm) sv ED Course: 07:21 Patient arrived in ED. ag5 07:21 Unknown, Unknown is Private Physician. ag5 07:21 Missael Gifford MD is Attending Physician. shreya 07:24 Triage completed. sv 07:25 Arm band placed on. sv 07:29 Andrew Montejo, RN is Primary Nurse. bp 07:31 Patient has correct armband on for positive identification. Placed in gown. Bed in low bp position. Call light in reach. Side rails up X2. Adult w/ patient. panel monitor on. Pulse ox on. NIBP on. 07:33 Attending Physician role handed off by Missael Gifford MD pkl 07:33 Gilles Rivera MD is Attending Physician. pkl 07:34 Attending Physician role handed off by Gilles Rivera MD shreya 07:34 Missael Gifford MD is Attending Physician. shreya 07:56 EKG done, by ED staff, reviewed by Missael Gifford MD. jb1 07:57 XRAY Chest (1 view) In Process Unspecified. EDMS 08:00 Inserted saline lock: 20 gauge in right forearm, using aseptic technique. Blood bp collected. 08:35 Chest Pa And Lat (2 Views) XRAY In Process Unspecified. EDMS 09:04 CT Chest For PE Angio In Process Unspecified. EDMS 09:43 US Extremity Venous W Compression Lewis In Process Unspecified. EDMS 10:36 Urine collected: clean catch specimen, cloudy, vinod colored. jb1 11:18 Oswaldo Schwab MD is Referral Physician. shreya 11:30 No provider procedures requiring assistance completed. IV discontinued, intact, bp bleeding controlled, No redness/swelling at site. Pressure dressing applied. Patient maintains SpO2 saturation greater than 95% on room air. Administered Medications: 08:00 Drug: NS 0.9% 1000 ml Route: IV; Rate: 125 ml/hr; Site: right forearm; bp 11:34 Follow up: IV Status: Completed infusion; IV Intake: 375ml bp 09:00 Drug: Aspirin Chewable Tablet 162 mg Route: PO; bp 11:33 Follow up: Response: No adverse reaction bp 09:00 Drug: SOLU-Medrol 125 mg Route: IVP; Site: right antecubital; bp 11:33 Follow up: Response: No adverse reaction bp 09:00 Drug: predniSONE 20 mg Route: PO; bp 11:32 Follow up: Response: No adverse reaction bp 09:00 Drug: Rocephin - (cefTRIAXone) 1 grams Route: IVPB; Infused Over: 30 mins; Site: right bp antecubital; 11:32 Follow up: IV Status: Completed infusion; IV Intake: 50ml bp 09:00 Drug: Zithromax 500 mg Route: PO; bp 10:00 Follow up: Response: No adverse reaction bp 09:00 Drug: Xopenex 2.5 mg Route: Inhalation; bp 09:00 Drug: AtroVENT Aerosol 0.5 mg Route: Inhalation; bp 10:46 Drug: Lopressor 25 mg Route: PO; hb 10:48 Follow up: Response: No adverse reaction bp Intake: 11:32 IV: 50ml; Total: 50ml. bp 11:34 IV: 375ml; Total: 425ml. bp Outcome: 11:18 Discharge ordered by . shreya 11:30 Discharged to home ambulatory, with family. bp 11:30 Condition: stable 11:30 Discharge instructions given to patient, Instructed on discharge instructions, follow up and referral plans. medication usage, Demonstrated understanding of instructions, follow-up care, medications, Prescriptions given X 5 11:35 Patient left the ED. bp Signatures: Dispatcher [employer] EDMS Robby Capps [email or web address] Nika Corado, RN RN sv Missael Gifford MD MD cha Lam, Pin, MD MD pkl Baxter, Heather, RN RN Andrew Montejo RN RN bp Gaskin, Ajare ag5 Corrections: (The following items were deleted from the chart) 07:23 Presenting complaint: Patient states: cough Thursday, Thursday and Thursday he sv started with sweating, muscle weakness, fatigue. sv 07: 07:25 Pulse 76bpm; Resp 18bpm; Pulse Ox 98%; Temp 98.2F Oral; 103.42 kg; Height 5 ft. 4 sv in.; BMI: 39.1; Pain 0/10; sv 10:51 09:30 Reassessment: Patient appears in no apparent distress at this time. No changes hb from previously documented assessment. Patient and/or family updated on plan of care and expected duration. Pain level reassessed. Admission ordered, awaiting room assignment at this time. Family remains at bedside hb 10:51 10:15 Reassessment: Patient appears in no apparent distress at this time. No changes hb from previously documented assessment. Patient and/or family updated on plan of care and expected duration. Pain level reassessed. hb 10:51 10:49 Reassessment: Attempted to call report to floor, receiving nurse unavailable hb hb
--- NOTE | 2019-01-24 11:19 | EDPHYS ---
Physician Documentation [facility] Name: Mathew Nowak Age: 58 yrs Sex: Male : 1960 Arrival Date: 01/24/2019 Time: 07:21 Bed 6 Private MD: Unknown, Unknown ED Physician Missael Gifford HPI: 01/24 07:48 This 58 yrs old Male presents to ER via Ambulatory with complaints of Chest shreya Pain, Cough. 07:48 The patient or guardian reports chest pain that is located primarily in the anterior [facility] chest wall. Onset: yesterday. The pain does not radiate. Associated signs and symptoms: Pertinent positives: cough. 07:48 cough , sweats, weakness. The patient or guardian reports cough, described as mild, shreya described as moderate, flu symptoms. Onset: The symptoms/episode began/occurred 2 day(s) ago. Severity of symptoms: At their worst the symptoms were mild, in the emergency department the symptoms are unchanged. Modifying factors: The symptoms are alleviated by nothing. Historical: - Allergies: 07:25 PENICILLINS; sv - PMHx: 07:25 Hypertension; sv - PSHx: 07:25 right facial; sv - Immunization history:: Adult Immunizations up to date. - Social history:: Smoking status: Patient/guardian denies using tobacco. - Ebola Screening: : No symptoms or risks identified at this time. - Family history:: not pertinent. ROS: 07:48 Constitutional: Negative for fever, chills, and weight loss, Eyes: Negative for injury, shreya pain, redness, and discharge, ENT: Negative for injury, pain, and discharge, Neck: Negative for injury, pain, and swelling, Cardiovascular: Negative for chest pain, palpitations, and edema, Abdomen/GI: Negative for abdominal pain, nausea, vomiting, diarrhea, and constipation, Back: Negative for injury and pain, : Negative for injury, bleeding, discharge, and swelling, MS/Extremity: Negative for injury and deformity, Skin: Negative for injury, rash, and discoloration, Neuro: Negative for headache, weakness, numbness, tingling, and seizure, Psych: Negative for depression, anxiety, suicide ideation, homicidal ideation, and hallucinations, Allergy/Immunology: Negative for hives, rash, and allergies, Endocrine: Negative for neck swelling, polydipsia, polyuria, polyphagia, and marked weight changes, Hematologic/Lymphatic: Negative for swollen nodes, abnormal bleeding, and unusual bruising. 07:48 Respiratory: Positive for cough. Exam: 07:48 Constitutional: This is a well developed, well nourished patient who is awake, alert, shreya and in no acute distress. Head/Face: Normocephalic, atraumatic. Eyes: Pupils equal round and reactive to light, extra-ocular motions intact. Lids and lashes normal. Conjunctiva and sclera are non-icteric and not injected. Cornea within normal limits. Periorbital areas with no swelling, redness, or edema. ENT: Nares patent. No nasal discharge, no septal abnormalities noted. Tympanic membranes are normal and external auditory canals are clear. Oropharynx with no redness, swelling, or masses, exudates, or evidence of obstruction, uvula midline. Mucous membranes moist. Neck: Trachea midline, no thyromegaly or masses palpated, and no cervical lymphadenopathy. Supple, full range of motion without nuchal rigidity, or vertebral point tenderness. No Meningismus. Chest/axilla: Normal chest wall appearance and motion. Nontender with no deformity. No lesions are appreciated. Cardiovascular: Regular rate and rhythm with a normal S1 and S2. No gallops, murmurs, or rubs. Normal PMI, no JVD. No pulse deficits. Respiratory: Lungs have equal breath sounds bilaterally, clear to auscultation and percussion. No rales, rhonchi or wheezes noted. No increased work of breathing, no retractions or nasal flaring. Abdomen/GI: Soft, non-tender, with normal bowel sounds. No distension or tympany. No guarding or rebound. No evidence of tenderness throughout. Back: No spinal tenderness. No costovertebral tenderness. Full range of motion. Male : Normal genitalia with no discharge or lesions. Skin: Warm, dry with normal turgor. Normal color with no rashes, no lesions, and no evidence of cellulitis. MS/ Extremity: Pulses equal, no cyanosis. Neurovascular intact. Full, normal range of motion. Neuro: Awake and alert, GCS 15, oriented to person, place, time, and situation. Cranial nerves II-XII grossly intact. Motor strength 5/5 in all extremities. Sensory grossly intact. Cerebellar exam normal. Normal gait. Psych: Awake, alert, with orientation to person, place and time. Behavior, mood, and affect are within normal limits. Vital Signs: 07:25 BP 148 / 84; Pulse 76; Resp 18; Temp 98.2(O); Pulse Ox 98% ; Weight 103.42 kg; Height 5 sv ft. 4 in. (162.56 cm); Pain 0/10; 08:37 BP 142 / 72; Pulse 73; Resp 15; Pulse Ox 98% ; bp 10:30 BP 137 / 79; Pulse 75; Resp 16; Temp 98.3; Pulse Ox 99% ; bp 07:25 Body Mass Index 39.14 (103.42 kg, 162.56 cm) sv MDM: 07:34 Patient medically screened. [facility] 07:50 Data reviewed: vital signs, nurses notes, lab test result(s), EKG, radiologic studies, shreya plain films. 01/24 07:30 Order name: Basic Metabolic Panel; Complete Time: 09:27 bp 01/24 07:30 Order name: CBC with Diff; Complete Time: 08:49 bp 01/24 07:30 Order name: LFT's; Complete Time: 09:27 bp 01/24 07:30 Order name: Magnesium; Complete Time: 09:27 bp 01/24 07:30 Order name: NT PRO-BNP; Complete Time: 09:27 bp 01/24 07:30 Order name: PT-INR; Complete Time: 08:49 bp 01/24 07:30 Order name: Troponin (emerg Dept Use Only); Complete Time: 09:27 bp 01/24 07:47 Order name: Flu; Complete Time: 08:49 shreya 01/24 07:47 Order name: Blood Culture Adult (2) shreya 01/24 07:47 Order name: Procalcitonin; Complete Time: 08:55 shreya 01/24 08:11 Order name: Thyroid Stimulating Hormone; Complete Time: 09:27 EDMS 01/24 08:11 Order name: D-Dimer; Complete Time: 08:49 EDMS 01/24 07:30 Order name: XRAY Chest (1 view); Complete Time: 09:47 bp 01/24 07:47 Order name: Chest Pa And Lat (2 Views) XRAY; Complete Time: 10:40 shreya 01/24 08:39 Order name: CT Chest For PE Angio; Complete Time: 09:47 ss 01/24 08:40 Order name: US Extremity Venous W Compression Lewis; Complete Time: 10:40 ss 01/24 08:50 Order name: T4 Free; Complete Time: 09:27 EDMS 01/24 08:56 Order name: Troponin I: at 1030am; Complete Time: 11:17 shreya 01/24 10:43 Order name: Urine Dipstick--Ancillary (enter results); Complete Time: 11:17 bd 01/24 07:30 Order name: EKG; Complete Time: 07:32 bp 01/24 07:30 Order name: Cardiac monitoring; Complete Time: 07:56 bp 01/24 07:30 Order name: EKG - Nurse/Tech; Complete Time: 07:56 bp 01/24 07:30 Order name: IV Saline Lock; Complete Time: 07:56 bp 01/24 07:30 Order name: Labs collected and sent; Complete Time: 07:56 bp 01/24 07:30 Order name: O2 Per Protocol; Complete Time: 07:56 bp 01/24 07:30 Order name: O2 Sat Monitoring; Complete Time: 07:56 bp 01/24 09:57 Order name: Misc. Order: repeat troponin at 1030; Complete Time: 10:38 ss Administered Medications: 08:00 Drug: NS 0.9% 1000 ml Route: IV; Rate: 125 ml/hr; Site: right forearm; bp 11:34 Follow up: IV Status: Completed infusion; IV Intake: 375ml bp 09:00 Drug: Aspirin Chewable Tablet 162 mg Route: PO; bp 11:33 Follow up: Response: No adverse reaction bp 09:00 Drug: SOLU-Medrol 125 mg Route: IVP; Site: right antecubital; bp 11:33 Follow up: Response: No adverse reaction bp 09:00 Drug: predniSONE 20 mg Route: PO; bp 11:32 Follow up: Response: No adverse reaction bp 09:00 Drug: Rocephin - (cefTRIAXone) 1 grams Route: IVPB; Infused Over: 30 mins; Site: right bp antecubital; 11:32 Follow up: IV Status: Completed infusion; IV Intake: 50ml bp 09:00 Drug: Zithromax 500 mg Route: PO; bp 10:00 Follow up: Response: No adverse reaction bp 09:00 Drug: Xopenex 2.5 mg Route: Inhalation; bp 09:00 Drug: AtroVENT Aerosol 0.5 mg Route: Inhalation; bp 10:46 Drug: Lopressor 25 mg Route: PO; hb 10:48 Follow up: Response: No adverse reaction bp Disposition: 01/24/19 11:18 Discharged to Home. Impression: Bronchitis, not specified as acute or chronic, Essential (primary) hypertension. - Condition is Stable. - Discharge Instructions: Acute Bronchitis, Adult, Hypertension, Upper Respiratory Infection, Adult, Upper Respiratory Infection, Adult, Sazw-sw-Soza, Hypertension, Efkf-yx-[id number], How to Take Your Blood Pressure, Wgxz-on-Cgmt, Aspirin and Your Heart, Managing Your Hypertension. - Prescriptions for Zithromax Z- Nathan 250 mg Oral Tablet - take 1 tablet by ORAL route as directed for 5 days Day 1 - take two (2) tablets one time. Day 2, 3, 4 , 5 take one (1) tablet once daily.; 6 tablet. Medrol (Nathan) 4 mg Oral Tablets, Dose Pack - take 1 tablet by ORAL route as directed - follow package instructions; 1 packet. Albuterol Sulfate 90 mcg/actuation - inhale 1-2 puff by INHALATION route every 4-6 hours; 1 Inhaler. Guaifenesin AC 10- 100 mg/5 mL Oral Liquid - take 10 milliliters by ORAL route every 4 hours As needed; 180 milliliter. Toprol XL 25 mg Oral Tablet - take 1 tablet by ORAL route once daily; 20 tablet. - Medication Reconciliation Form, Thank You Letter, Antibiotic Education, Prescription Opioid Use form. - Follow up: Private Physician; When: 2 - 3 days; Reason: Recheck today's complaints, Continuance of care, Re-evaluation by your physician. Follow up: Oswaldo Schwab; When: 2 - 3 days; Reason: Recheck today's complaints, Continuance of care, Re-evaluation by your physician. - Problem is new. - Symptoms have improved. Signatures: Dispatcher [employer] Nika Mauricio, RN Missael Chaves MD MD cha Smirch, Shelby, RN RN ss Lashon Costello RN RN hb Peltier, Brian, RN RN bp Corrections: (The following items were deleted from the chart) 08:11 07:49 D-DIMER+COAG.LAB.BRZ ordered. EDMS EDMS 08:11 07:49 THYROID STIMULAT HORMONE+C.LAB.BRZ ordered. EDMS EDMS 11:34 11:18 01/24/2019 11:18 Discharged to Home. Impression: Bronchitis, not specified as bp acute or chronic; Essential (primary) hypertension. Condition is Stable. Discharge Instructions: Acute Bronchitis, Adult, Hypertension, Upper Respiratory Infection, Adult, Upper Respiratory Infection, Adult, Gvuz-hc-Iscx, Hypertension, Hdkd-zz-Lcgl, How to Take Your Blood Pressure, Xmct-mh-Kdkh, Aspirin and Your Heart, Managing Your Hypertension. Prescriptions for Zithromax Z-Nathan 250 mg Oral Tablet - take 1 tablet by ORAL route as directed for 5 days Day 1 - take two (2) tablets one time. Day 2, 3, 4 , 5 take one (1) tablet once daily.; 6 tablet, Medrol (Nathan) 4 mg Oral Tablets, Dose Pack - take 1 tablet by ORAL route as directed - follow package instructions; 1 packet, Albuterol Sulfate 90 mcg/actuation - inhale 1-2 puff by INHALATION route every 4-6 hours; 1 Inhaler, Guaifenesin AC 10-100 mg/5 mL Oral Liquid - take 10 milliliters by ORAL route every 4 hours As needed; 180 milliliter, Toprol XL 25 mg Oral Tablet - take 1 tablet by ORAL route once daily; 20 tablet. and Forms are Medication Reconciliation Form, Thank You Letter, Antibiotic Education, Prescription Opioid Use. Follow up: Private Physician; When: 2 - 3 days; Reason: Recheck today's complaints, Continuance of care, Re-evaluation by your physician. Follow up: Oswaldo Schwab; When: 2 - 3 days; Reason: Recheck today's complaints, Continuance of care, Re-evaluation by your physician. Problem is new. Symptoms have improved. shreya
--- NOTE | 2019-01-25 08:00 | EKG ---
Test Date: 2019-01-24 Test Time: 07:43:58 Mail Handler Sorter: LIZA MEASUREMENT RESULTS: Intervals: Rate: 83 RI: 164 QRSD: 110 QT: 394 QTc: 462 Biola: P: 21 RI: 164 QRS: -70 T: 94 INTERPRETIVE STATEMENTS: Normal sinus rhythm Left axis deviation Possible Anterior infarct, age undetermined Abnormal ECG Compared to ECG 08/10/2018 13:32:32 Myocardial infarct finding now present T-wave abnormality no longer present Electronically Signed On 01-25-19 07:57:25 CDT by Oswaldo Schwab
== END 2019-01-24 11:34 | disposition home or self-care (01) ==
LOC: ER 07:19
DX: J40 Bronchitis, not specified as acute or chronic (principal); I10 Essential (primary) hypertension; Z88.0 Allergy status to penicillin
CPT/HCPCS: 36415; 71045; 71046; 71275; 80048; 80076; 81003; 83735; 83880; 84145; 84439; 84443; 84484; 85025; 85379; 85610; 87040; 87205; 87804; 93005; 93970; 96361; 96365; 96366; 96375; 99285; J0696; J2930; J7030; J7512

== ENCOUNTER 2020-04-30 09:37 | Emergency (ER) | payer BC ==
--- OUTSIDE RECORDS SUMMARY | 2020-04-30 10:58 | XMS REPORT | Summary of Care ---
:1960 Author Organization [facility] Address [address] [place] [address]- Encounter HQ Danyntr_que(FIN) [id number] Date(s): 04/07/20 - 04/08/20 [facility] [address] [place] [address]- [phone] Vital Signs No data available for this section Problem List Condition Effective Dates Status Health Status Informant PreDiabetes(Confirmed) Resolved Diabetic autonomic Active neuropathy(Confirmed) Hypertension(Confirmed) Active Inflammatory Active polyarthropathy(Confirmed) Mixed hyperlipidemia(Confirmed) Active Obesity(Confirmed) Active Onychomycosis(Confirmed) Active 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(Confirmed) Allergies, Adverse Reactions, Alerts Substance Reaction Severity Status penicillins Anaphylaxis Active lisinopril Cough, NOS Active Medications No data available for this section Results No data available for this section Immunizations Given and Recorded Vaccine Date Status Refusal Reason influenza virus vaccine, inactivated 05/16/19 Given influenza virus vaccine, inactivated1 05/14/18 Given pneumococcal 23-valent vaccine 02/23/18 Given zoster vaccine live2 01/13/17 Given 1Result Comment: patient waited 15 minutes had no [id number] Comment: PT waited 10 minutes after vaccine no pain,or adverse reaction seen Procedures Procedure Date Related Diagnosis Body Site Status Colonoscopy1 07/2018 Completed Colonoscopy and biopsy of colon2 2012 Completed Appendectomy Completed Hernia, inguinal, left Compl eted 1+ polyps2+ polyps. repeat 5 years Social History Social History Type Response Alcohol Current, Type Beer, Wine. F requency: 1-2 times per week.1 Employment/School Status: Employed. 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 3 children. Assessment and Plan No data available for this section
--- OUTSIDE RECORDS SUMMARY | 2020-04-30 10:58 | XMS REPORT | Summary of Care ---
:1960 Author Organization [facility] Address [address] [place] [address]- Encounter HQ Danyntr_alimichelle(FIN) [id number] Date(s): 04/07/20 - 04/08/20 [facility] [address] [place] [address]- [phone] Vital Signs No data available for this [...] Comment: patient waited 15 minutes had no [id number] Comment: PT waited 10 minutes after vaccine [...] week.1 Employment/School Status: Employed. 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 3 children. Assessment and Plan No data available for this section
--- OUTSIDE RECORDS SUMMARY | 2020-04-30 10:58 | XMS REPORT | Continuity of Care Document ---
:1960 Author Organization [email or web address] [facility] Care Team Providers Name Role Phone [email or web address] [facility] Unavailable Un available Problems Problem Status Onset Classification Date Comments Sourc e Date Reported Encounter for 01/19/2019 [place] screening for 018 malignant neoplasm of colon Z12.[address] 018 R10.9 - Active [facility] UNSPECIFIED 017 [facility] ABDOMINAL PAIN Blood glucose Resolved Problem 04/10/2020 Me dical abnormal (finding) G alyce, OPID [facility],M [facility], [facility] [place] and Hypertensive Active Problem 04/10/2020 Med ical disorder, systemic G roup, OPID arterial [facility],M (disorder) [facility], [facility] [place] and Obesity (disorder) Active Problem 04/10/2020 Medical Group, O PID [facility],M [facility], [facility] [place] and Diabetes mellitus Active Problem 01/19/2019 [facility] Medical (disorder) Group,[facility] Diabetic autonomic Active Problem 04/10/2020 Medical neuropathy Group, (disorder) [facility] OPID [place] and Onychomycosis Active Problem 04/10/2020 [facility] dical (disorder) Group,[facility], [facility] [place] and Secondary erectile Active Problem 04/10/2020 Medical dysfunction Group, (disorder) [facility] , OPID [place] and 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 Grou p, OPID (disorder) [place] Mixed Active Problem 04/10/2020 Medica l hyperlipidemia Group (disorder) Diverticulosis of 01/19/2019 [facility] large intestine without perforation or abscess without bleeding 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 [facility] transverse colon Second degree 01/19/2019 [place] hemorrhoids 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 [facility] 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 Essential 01/19/2019 [facility] (primary) hypertension Obesity, 01/19/2019 [facility] unspecified residential 01/19/2019 [place] [facility] (current) use of oral hypoglycemic drugs Allergy status to 01/19/2019 [facility] penicillin Other skilled nursing 01/19/2019 [facility] (current) drug therapy Personal history 01/19/2019 [facility] of colonic polyps Body mass index 01/19/2019 [facility] (BMI) 38.0-38.9, adult Encounter for Active Problem 05/31/[facility] Positive Active Problem 05/31/2019 [facility] QuantiFERON-TB [facility] Gold test Diabetic autonomic Active Problem 05/31/2019 [facility] neuropathy [facility] associated with type 2 diabetes mellitus Vitamin D Active Problem 05/31/2019 [facility] deficiency [facility] Prepatellar Active Problem 05/31/[address] [facility] bursitis, right [facility] knee Abnormal Active Problem 05/31/2019 [facility] immunological [facility] finding in serum, unspecified Arthralgia of Active Problem 05/31/2019 [facility] multiple joints [facility] Benign essential Active Problem 05/31/2019 [facility] hypertension [facility] Medications Medication Details Route Status Patient Ordering Order Source Instructions Provider Date rosuvastatin 5 mg 5 mg = 1 tab, Active Medical oral tablet PO, Bedtime, 2018 Group for cholesterol, # 90 tab, 3 Refill(s), Pharmacy: [facility] #[id number] carvedilol 6.25 mg 6.25 mg = 1 Active 05/16/ M H Medical oral tablet tab, PO, BID, 2019 Group for blood pressure, # 180 tab, 1 Refill(s), Pharmacy: [facility] #[id number], senegalese label 24 HR Metformin 750 mg = 1 Active Me dical hydrochloride 750 tab, PO, 2019 Group MG Extended Dinner, with Release Tablet evening meal FOR diabetes, # 90 tab, 3 Refill(s), Pharmacy: [facility] #[id number], senegalese label. ; notice correction to SIG meloxicam 15 mg 15 mg = 1 Active Med ical oral tablet tab, PO, 2019 Group Daily, PRN Pain, # 90 tab, 1 Refill(s), Pharmacy: [facility] [id number] Sodium Chloride 500 mL, Rate: Inactive H 0.9% IV 500 mL 25 ml/hr, [address] [facility] [address] Infuse over: 20 hr, Route: IV, Dosing Weight 102.727 kg, Total Volume: 500, Start date: 07/02/18 12:27:00 CDT, Duration: 1 day, Stop date: 07/03/18 12:26:00 CDT, 2.19, m2 Hydrochlorothiazid See No Longer Medical e 25 MG Oral Instructions, Active 2018 Group Tablet # 30 tab, Refill(s) 1, TAKE 1 TABLET BY MOUTH DAILY NEEDED FOR SWELLING, Pharmacy: [facility] [id number] 24 HR Metformin 750 mg = 1 Active Me dical hydrochloride 750 tab, PO, 2018 Group MG Extended Dinner, with Release Tablet evening meal FOR diabetes, # 90 tab, 3 Refill(s), Pharmacy: [facility] [id number], senegalese label. ; notice correction to SIG 24 HR Metformin 750 mg = 1 No Longer Medical hydrochloride 750 tab, PO, Active 2018 Group MG Extended Dinner, with Release Tablet evening meal to prevent diabetes, # 90 tab, 3 Refill(s), Pharmacy: [facility] [id number], senegalese label carvedilol 6.25 mg 6.25 mg = 1 Active H Medical oral tablet tab, PO, BID, 2018 Group for blood pressure, # 180 tab, 1 Refill(s), Pharmacy: [facility] [id number], senegalese label Hydrochlorothiazid 25 mg = 1 No Longer H Medical e 25 MG Oral tab, PO, Active 2018 Group Tablet Daily, NEEDED FOR SWELLING, # 30 tab, 1 Refill(s), Pharmacy: [facility] [id number], senegalese label sildenafil 100 MG 100 mg = 1 Active Medical Oral Tablet tab, PO, 2018 Group [Viagra] Daily, PRN for erectile dysfunction, Take 30 minutes prior to intercourse, # 6 tab, 11 Refill(s), Pharmacy: [facility] [id number] Triamcinolone 1 appl, TOP, No Longer Medical Acetonide 0.25 BID, apply a Active 2018 Grou p MG/ML Topical thin film to Cream the itchy area as needed, # 15 gm, 2 Refill(s), Pharmacy: [facility] [id number] carvedilol 6.25 mg 6.25 mg = 1 Active 02/23/ M H Medical oral tablet tab, PO, BID, 2017 Group for blood pressure, # 180 tab, 1 Refill(s), Pharmacy: [facility] [id number], senegalese label 24 HR Metformin 750 mg = 1 Active Me dical hydrochloride 750 tab, PO, 2017 Group MG Extended Dinner, with Release Tablet evening meal to prevent diabetes, # 90 tab, 3 Refill(s), Pharmacy: [facility] [id number], seneg[place]e label Blood Pressure 1 ea, MISC, Active Me dical Monitor Upper Arm ONCE, any 2018 Grou p Misc/Other preferred brand to check BP once a day as directed for Hypertension I10, # 1 ea, 0 Refill(s) terbinafine 250 mg 250 mg = 1 Active Medical oral tablet tab, PO, 2017 Group Daily, for toenails, X 90 day, # 90 tab, 0 Refill(s), Pharmacy: [facility] [id number], seneg[place]e label carvedilol 6.25 mg See Active Me dical oral tablet Instructions, 2018 Group RAMAKRISHNA NICOLLE TABLETA POR LA BOCA DOS VECES AL RYAN(CADA 12 HORAS) PARA PRESSION MITCHEL, # 60 tab, 0 Refill(s), Pharmacy: [facility] [id number] carvedilol 6.25 mg 6.25 mg = 1 Inactive Medical oral tablet tab, PO, BID, 2017 Group for blood pressure, # 60 tab, 0 Refill(s), Pharmacy: [facility] [id number], senegalese label carvedilol 6.25 mg 6.25 mg = 1 Active 09/04/ M H Medical oral tablet tab, PO, BID, 2017 Group for blood pressure, # 180 tab, 1 Refill(s), Pharmacy: [facility] [id number], senegalese label carvedilol 6.25 mg 6.25 mg = 1 Active /16/ M H Medical oral tablet tab, PO, BID, 2016 Group # 60 tab, 0 Refill(s), Pharmacy: [facility] [id number] Aspir-81 not defined NA Active [facility] Carvedilol 2 tabs Orally Active 6.25 MG [facility] Orally once a of Radha day Allergies, Adverse Reactions, Alerts Substance Category Reaction Severity Reaction Status Date Comments S ource type Reported Penicillin Adverse rash Adverse Active Rhe um Reaction Reaction 9 [facility] of [facility] lisinopril Assertion Cough, NOS Drug Active allergy Medical Group penicillins Assertion Anaphylaxis Drug Active allergy Medical Group Immunizations Immunization Date Site Status Last Comments Source Given Updated influenza virus Left completed Quiroz [facility] edical vaccine, 9 Deltoid Group inactivated influenza virus Left completed Quiroz Result [facility] edical vaccine, 8 Deltoid Comment: Group, inactivated<sup> patient Bella theast, 1</sup> waited 15 [facility] [place] and minutes had no reaction pneumococcal Left completed Quiroz Medi ced 23-valent 8 Deltoid Group, vaccine [place], [facility] [place] and zoster vaccine Right Upper completed [place] Result Medical live<sup>1</sup> 7 Arm Comment: PT G roujudy, OPID waited 10 [facility] minutes after vaccine no pain,or adverse reaction seen zoster vaccine Right Upper completed [place] Result Medical live<sup>2</sup> 7 Arm Comment: PT Parrish mead, waited 10 [place], minutes [facility] [place] and after vaccine no pain,or adverse reaction seen Results Order Name Results Value Reference Date Interpretation Comments Bella rce Range ELECTROLYTES AGAP 13.6 10.0 - 06/30 20.0 /2018 [facility] ELECTROLYTES eGFR 94 06/30 Result Comment: The [facility] eGFR is calculated using the CKD-EPI formula. In most young, healthy individuals the eGFR will be >90 mL/min/1.73m2 . The eGFR declines with age. An eGFR of 60-89 may be normal in some populations, particularly the elderly, for whom the CKD-EPI formula has not been extensively validated. Use of the eGFR is not recommended in the following populations:< br/>
Mayuri viduals with unstable creatinine concentration s, including patients and those with serious co-morbid conditions.<b r/>
Patie nts with extremes in muscle mass or diet.

The data above are obtained from the National Kidney Disease Education Program (NKDEP) which additionally recommends that when the eGFR is used in patients with extremes of body mass index for purposes of drug dosing, the eGFR should be multiplied by the estimated BMI. ELECTROLYTES Creatinine 0.86 0.50 - 06/30 Lvl 1.40 /2017 [facility] ELECTROLYTES Calcium Lvl 8.7 8.5 - 10.5 06/30 [facility] ELECTROLYTES CO2 29 24 - 32 06/30 [facility] ELECTROLYTES Chloride Lvl 107 95 - 109 06/30 [facility] ELECTROLYTES Potassium 4.6 3.5 - 5.1 06/30 Lvl [facility] ELECTROLYTES Sodium Lvl 145 135 - 145 06/30 [facility] ELECTROLYTES BUN 13 7 - 22 06/30 [facility] ELECTROLYTES Glucose Lvl 136 70 - 99 06/30 [facility] SPECIAL Hgb A1C 6.6 <=5.6 % 06/30 CHEMISTRY [facility] Pathology Reports No Data Provided for This Section Diagnostic Reports Report Value Date Source Spine lumbar 2 or 3 LUMBAR SPINE 05/12/2019 [facility] [place] DX Clinical Indication: - M25.50 Pain in unspeci fied joint Comparison: None FINDINGS: 3 view examination of the irais mbar spine demonstrates lateral osteophytes at the L1-L3 levels. There is anterior osteophytes diffusely. There is 2 mm of anterolisthesis of L4 on L5 and hypertrophic change of the posterior elements of L4-S1. If there is further concern or neurological abnormalities on clinical exam, MRI or CT of the lumbar spine may be performed for complete assessment. IMPRESSION: 1. 2 mm anterolisthesis of L4 on L5. 2. Hypertrophic change of the posterior element s of L4-S1. 3. Lateral osteophytes of L1-L3 and diffuse ant erior osteophytes. SL: [id number] Hand 2 views Clinical Indication: - M25.50 Pain in unspecified joint 05/12/2019 [facility] [place] Bilateral DX Comparison: None FINDINGS: RIGHT HAND: AP and lateral views of the right hand show normal alignment without fractures or dislocations. The digit and thumb interphalangeal joints are unremarkable. The metacarpophalangeal joints are unremark able. The carpometacarpal soraida int regions are unremarkable. There is no soft tissue swelling or radiopaque foreign bodies. The visualized wrist region is grossly unremarkable. LEFT HAND: AP and lateral views of the left hand show normal alignment without fractures or dislocations. The digit and thumb interphalangeal joints are unremarkable. The metacarpophalangeal joints are unremarka ble. The carpometacarpal lasha nt regions are unremarkable. There is no soft tissue swelling or radiopaque foreign bodies. The visualized wrist region is grossly unremarkable. If there is further concern, recommend follow-up radiographs or bone scan for complete assessment. IMPRESSION: 1. Unremarkable examination of the bilateral jorge nds. SL: [id number] Knee standing 1 view Clinical Indication: - M25.50 Pain i n unspecified joint 05/12/2019 BISHOP Bauman bilateral DX Comparison: None FINDINGS: Single frontal standing view of the bilateral knee show normal alignment without fractures or dislocations. There is mild medial joint space narrowing and mild hypertrophic change of the medial and la teral compartments bilateral ly. There is no knee region soft tissue swelling. Hoffa's fat pad region is unremarkable. There are no joint bodies. There is no joint effusion. There are no radiopaque foreign bodies. If there is further concern, recommend follow-up radiographs or MRI for complete assessment. IMPRESSION: 1. Mild DJD of the bilateral knees. SL: [id number] Chest 2 views DX Clinical Indication: - R76. 9 Abnormal immunological finding in serum, unspecified 05/12/2019 BISHOP Bauman Comparison: None FINDINGS: PA and lateral views of the chest are performed. Heart size is within normal limits. Mediastinal contours are unremarkable. Lungs are clear without infi ltrate or mass. No pleural effusion or pneumothorax. No acute osseous abnormality. IMPRESSION: 1. No radiographic evidence for acute process in the chest. SL: [id number] Renal Stone CT PROCEDURE: RENAL STONE CT 06/24/2017 CORNELIO Trinh CLINICAL INDICATION: R10.9, M54.5. Left flank pain, acute left-sided low back pain. COMPARISON: None. TECHNIQUE: Unenhanced axial helical CT images of the abdomen and pelvis were performed. Reformatted coronal and sagittal images are available. CT Radiation Dose DLP 961.60 mGy-cm. Please note that lack of int ravenous contrast limits evaluation of the organs and vasculature. Lack of oral contrast limits evaluation of the bowel. FINDINGS: LUNG BASES: There is mild el evation of the left diaphragm. Minimal dependent subsegmental atelectasis in both lower lobes. The heart size is upper limits of normal. ORGANS: There is diffuse fat ty infiltration of the liver. The liver is mildly enlarged measuring a maximal craniocaudal dimension of approximately 18 cm. No demonstrable abnormality of the gallbladder, pancreas, spleen, adrenal gl ands and kidneys. No demonstrable urinary tract calculus. No hydronephrosis. BOWEL: There is a nonobstruc tive bowel gas pattern. Food debris in the lumen of the stomach limiting evaluation of the stomach. Mild colonic diverticulosis primarily involving the sigmoid colon without demonstrable acute diverticu litis. No additional demonstrable bowel abnormality. Normal appendix. [...] of the se keeley vesicles or poorly dis tended urinary bladder. Mild fatty prominence of the mid to inferior aspect of the right spermatic cord measuring a maximal diameter of approximately 1.7 cm may be due to nor mal variation or a lipoma. M ild fatty prominence of the entire length of the visualized left spermatic cord measuring a maximal diameter of approximately 2.1 cm may be due to normal variation, a lipoma or herniation of fat. Minimal calcificat ion of the left internal iliac artery. MUSCULOSKELETAL: Tiny umbili ced hernia containing fat measuring a width of [...] 1. No demonstrable urinary tract calculus. No hy dronephrosis. 2. Fatty infiltration of the liver. 3. Mild hepatomegaly. 4. Colonic diverticulosis without demonstrable a cute diverticulitis. 5. Enlarged prostate gland. 6. Mild fatty prominence of the spermatic cords. Primary differential considerations as described above. 7. Tiny umbilical hernia containing fat. 8. Degenerative changes of the spine and sacroil iac joints. SL: 16 Consultation Notes No Data Provided for This Section Discharge Summaries No Data Provided for This Section History and Physicals No Data Provided for This Section Vital Signs Vital Sign Value Date Comments Source Systolic (mm Hg) 147 05/16/2019 Medical Group Diastolic (mm Hg) 93 05/16/2019 Medical Group Heart Rate 73 05/16/2019 Medical Grou p Temperature Oral (F) 98.2 F 05/16/2019 Medi ced Group Height 162.56 cm 05/16/2019 Medical Grou p Weight 105.909 05/16/2019 Medical Grou p BMI Calculated 40.08 05/16/2019 Medical Gr oup Weight 234.8 05/12/2019 [facility] Height 64 05/12/2019 [facility] Heart Rate 58 05/12/2019 [facility] Diastolic (mm Hg) 100 05/12/2019 [facility] Systolic (mm Hg) 179 05/12/2019 [facility] Weight 104.545 03/16/2019 Medical Grou p BMI Calculated 39.56 03/16/2019 Medical Gr oup Height 162.56 cm 03/16/2019 Medical Grou p Temperature Oral (F) 97.8 F 03/16/2019 [facility] ced Group Heart Rate 55 03/16/2019 Medical Grou p Systolic (mm Hg) 138 03/16/2019 Medical Group Systolic (mm Hg) 135 07/02/2018 [place] Diastolic (mm Hg) 74 07/02/[address] Respitory Rate 16 07/02/2018 [facility] Systolic (mm Hg) 135 07/02/2018 [place] Diastolic (mm Hg) 74 07/02/[address] Respitory Rate 14 07/02/2018 [facility] Respitory Rate 15 07/02/2018 [facility] Systolic (mm Hg) 145 07/02/2018 [facility] Diastolic (mm Hg) 86 07/02/[address] Temperature Oral (F) 98.2 F 06/30/2018 [place] Heart Rate 54 06/30/2018 [facility] Height 162.56 cm 06/30/2018 [facility] BMI Calculated 38.87 06/30/2018 [facility] Weight 102.727 06/30/2018 [facility] Heart Rate 64 06/17/2018 Medical Grou p Temperature Oral (F) 98.4 F 06/17/2018 Medi ced Group Systolic (mm Hg) 156 06/17/2018 Medical Group Diastolic (mm Hg) 86 06/17/2018 Medical Group BMI Calculated 39.7 06/17/2018 Medical Gr oup Weight 104.909 06/17/2018 [facility] Grou p Height 162.56 cm 06/17/2018 Medical Grou p BMI Calculated 37.1 05/14/2018 Medical Gr oup Weight 104.261 05/14/2018 Medical Grou p Systolic (mm Hg) 150 05/14/2018 [facility] Diastolic (mm Hg) 96 05/14/2018 Medical Group Height 167.64 cm 05/14/2018 Medical Grou p Temperature Oral (F) 97.6 F 05/14/2018 Medi ced Group Heart Rate 58 05/14/2018 Medical Grou p Systolic (mm Hg) 135 03/19/2018 Medical Group Diastolic (mm Hg) 86 03/19/2018 Medical Group Height 162.56 cm 03/19/2018 Medical Grou p Temperature Oral (F) 97.3 F 03/19/2018 Medi ced Group Weight 104.545 03/19/2018 Medical Grou p Heart Rate 53 03/19/2018 Medical Grou p BMI Calculated 39.56 03/19/2018 Medical Gr oup Systolic (mm Hg) 182 03/19/2018 Medical Group Diastolic (mm Hg) 93 03/19/2018 Medical Group Systolic (mm Hg) 153 02/23/2018 Medical Group Diastolic (mm Hg) 90 02/23/2018 Medical Group Height 162.56 cm 02/23/2018 Medical Grou p Weight 103.324 02/23/2018 Medical Grou p BMI Calculated 39.1 02/23/2018 Medical Gr oup Heart Rate 65 02/23/2018 Medical Grou p Temperature Oral (F) 98.5 F 02/23/2018 Medi ced Group Systolic (mm Hg) 140 09/04/2017 Medical Group Diastolic (mm Hg) 94 09/04/2017 Medical Group Temperature Oral (F) 97.6 F 09/04/2017 Medi ced Group Heart Rate 64 09/04/2017 Medical Grou p Weight 100.455 09/04/2017 Medical Grou p BMI Calculated 36.85 09/04/2017 Medical Gr oup Height 165.1 cm 09/04/2017 Medical Grou p Systolic (mm Hg) 173 09/04/2017 Medical Group Diastolic (mm Hg) 102 09/04/2017 Medical Group Encounters Location Location Encounter Encounter Reason Attending ADM DC Stat us Source Details Type Number For Provider Date Date Visit Outpatient [id number] BEKA 10/31 Active [facility] VENCES [place] Outpatient [id number] BEKA 01/13 Active [facility] VENCES [place] Outpatient [id number] BEKA 06/02 Active [facility] VENCES [facility] Outpatient [id number] AKUVI [facility]/19 [facility] [id number] AKUVI 06/24 [facility] Outpt Diag [id number] Akuvi 06/24 06/25 [facility] Outpatient Services [facility] Phone [id number] 08/14 08/16 Primary Message /2016 Medical Care [facility] Outpatient [id number] BEKA 09/04 Active [facility] [id number] Beka 09/04 09/05 Primary Vences Jr /2017 Medica l Care Group [facility] Phone [id number] 02/03 02/05 Primary Message /2017 Medical Care Group [facility] Outpatient [id number] BEKA 02/23 Active [facility] [id number] Beka 02/23 02/24 Primary Vences Jr Medica l Care Group [facility] Outpatient [id number] BEKA 03/19 Active [facility] [id number] Beka 03/19 03/20 Primary Vences Jr Medica l Care Group [facility] Outpatient [id number] BEKA 05/14 Active [facility] VENCES [facility] Outpatient [id number] Beka 05/14 05/15 Primary Vences Jr Medica l Care Group [facility] Outpatient [id number] MOHUMMED 06/17 Activ [facility] Multi Outpatient [id number] Mohummed 06/17 06/18 Specialty [facility] Outpatient [id number] MOHUMMED 07/02 Activ e [facility] Bedded [id number] Mohummed 07/02 07/02 [facility] Outpatient [facility] Outpatient [id number] Mohummed 07/02 07/03 MH ColoRectal Kh Medica l Surgery Group [facility] Outpatient [id number] Beka 03/16 Active [facility] Outpatient [id number] Beka 03/16 [facility] Outpatient [id number] Beka 03/16 [facility] [id number] Beka 03/16 03/16 MH Primary Pre-Reg Vences Jr /2018 Medic al Care Group [facility] Ambulatory [id number] Beka 03/16 03/16 MH Primary Pre-Reg Vences Jr /2018 Medic al Care Group [facility] Outpatient [id number] Beka 03/16 03/17 MH Primary Vences Jr /2018 Medica l Care Group [facility] Between [id number] 03/19 03/20 MH Primary Visit /2018 Medical Care Group [facility] Outpt Diag [id number] Nilanjana 05/12 05/13 [facility] Outpatient Services [facility] Outpatient [id number] Beka 05/16 Active [facility] Outpatient [id number] Beka 05/16 Active [facility] [place] Outpatient [id number] Beka 05/16 Active [facility] Outpatient [id number] Beka 05/16 05/17 MH Primary Vences Jr /2018 Medica l Care Group [facility] Ambulatory [id number] Beka 05/16 05/16 MH Primary Pre-Reg Vences Jr /2018 Medic al Care Group [facility] Ambulatory [id number] Beka 05/16 05/16 Primary Pre-Reg Vences Jr /2018 Medic al Care Group [facility] Between [id number] 05/20 05/21 Primary Visit /2018 Medical Care [facility] Outpatient [id number] Beka 03/[address] [facility] Between [id number] 04/07 04/08 Primary Visit /2019 Medical Care [facility] Between [id number] 04/07 04/08 Primary Visit /2019 [facility] Care [facility] Procedures Procedure Code Date Perfomer Comments Source Colonoscopy<sup>1< [id number] 07/01/2018 + polyps Med ical /sup> Group Colonoscopy and [id number] 08/31/2012 + polyps. Medica l biopsy of repeat 5 years Group colon<sup>2</sup> Colonoscopy and [id number] 08/31/2012 + polyps. Medica l biopsy of repeat 5 years Group, O PID colon<sup>1</sup> John claire,[facility], [facility] [place] Appendectomy [id number] Medical Group, OPID Gayathri,[facility], [facility] [place] Hernia, inguinal, [id number] [facility] Group, [facility] [place],[facility], [facility] [place] Colonoscopy [id number] Medical Group,[facility], [facility] [place] Assessment and Plan Assessment and Plan Date Source Extracted from:Title: History and Physical 07/02/2018 [facility] Author: Aylin Clayton MD Date: 07/02/18 I do recommend to proceed with colonosco py based on the current recommendation and guidelines from [place] [employer] and [facility] of colorectalsurgeon.I had detailed discussion with the pat ient regarding the procedure and the bowel preparation. Procedure to be performed under LMAC jim esthesia, risks and benefits of the procedure were explained to the patient including bleeding, infection, pain, lung and heart complications, injuries to other s tructures in addition to bowel perforati on, missing small polyps, possible need for further interventions or procedures including but not limited to laparotomy and colostomy. Bowel prep instructions wer e given to the patient. Patient expresse s understanding andwishesto proceed with the planned procedure. 1.Encounter for screening colonoscopy(Z12.11) 2.Hx of colonic polyps(Z86.010) Plan of Care No Data Provided for This Section Social History Social History Date Source Social History TypeResponse 01/13/2017 Prakash mead Alcohol Current, Type Beer, Wine. Frequency: 1-2 times per week.1 Employment/School Status: Employed. 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 3 children. Social History TypeResponse 01/13/2017 OPIJoyce [place] Alcohol Current, Type Beer, Wine. Frequency: 1-2 times per week.1 Employment/School Status: Employed. 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 3 children. 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 Frequency: 1-2 times per week.2 Smoking Status Never smoker; Exposure to Tobacco Smoke None; Cigarette Smoking Last 365 Days No; Reg Smoking Cessation Counseling No 1Married. 3 children.24 drinks per week Social History TypeResponse 10/31/2016 Aida Employment/School Status: Employed. 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 Frequency: 1-2 times per week.2 Smoking Status Never smoker; Type: Cigars; Exposure to Tobacco Smoke None; Cigarette Smoking Last 365 Days No; Reg Smoking Cessation Counseling No entered on: 07/02/18 1Married. 3 children.24 drinks per week Family History No Data Provided for This Section Advance Directives No Data Provided for This Section Functional Status No Data Provided for This Section
--- OUTSIDE RECORDS SUMMARY | 2020-04-30 10:59 | XMS REPORT | Continuity of Care Document ---
:1960 Author Organization [facility] t Address [address] [place] [address] Care Team Providers Name Role Phone MELINDANG WU Attending Clinician Unavailable Andrew Ellsworth Attending Clinician Ashley Attending Clinician Ottoniel Clayton Attending Clinician Elhomarkus Mackenzie Attending Clinician Ottoniel Clayton Admitting Clinician Problems Condition Condition Condition Status Onset Resolution Last Treating Co mments Source Name Details Category Date Date Treatment Clinician Date Z12.11 Diagnosis Active 2017-082018-07-02 Mem oria 0-24 11:21:00 l Z12.11 00:00: [place] 00 Active 06/23/2018 [facility] R10.9 - Diagnosis Active 2016-082017-06-24 Me moria UNSPECIFIE 0-25 12:09:00 l D R10.9 - 00:01: [place] ABDOMINAL UNSPECIFIE 00 PAIN D ABDOMINAL PAIN Active 06/24/2017 [facility] History of History of Problem Resolve [facility] hypertensi hypertensi d it y of on on [place] Physici ans Rupture of Rupture of Problem Active U nivers left left ity of proximal proximal [place] biceps biceps Physici tendon, tendon, ans initial initial encounter encounter Tear of Tear of Problem Active [facility] left left ity of supr[place] t[place]us Physici tendon, tendon, ans initial initial encounter encounter Diverticul Problem 2019-01-19 M emoria osis of 11:59:28 l large [place] intestine Diverticul without osis of perforatio large n or intestine abscess without without perforatio bleeding n or abscess without bleeding 01/19/2019 [facility] 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 ia 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 01/19/2019 [facility] Second Problem 2019-01-19 Memor ia degree 11:59:28 l hemorrhoid Second Herm edwar s degree hemorrhoid s 01/19/2019 [facility] 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 01/19/2019 [facility] Obesity, Problem 2019-01-19 Mem oria unspecifie 11:59:28 l d Obesity, Jon n unspecifie d 01/19/2019 [facility] 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 2019-01-19 Me moria (current) 11:59:28 l use of Long [place] oral term hypoglycem (current) ic drugs use of oral hypoglycem ic drugs 01/19/2019 [facility] Allergy Problem 2019-01-19 Jorge christiane status to 11:59:28 l penicillin Allergy Her borges status to penicillin 01/19/2019 [facility] Other long Problem 2019-01-19 M emoria term 11:59:28 l (current) Other Jon n drug skilled nursing therapy (current) drug therapy 01/19/2019 [facility] Personal Problem 2019-01-19 Mem oria history of 11:59:28 l colonic Personal Amber nn polyps history of colonic polyps 01/19/2019 [facility] Body mass Problem 2019-01-19 Me moria index 11:59:28 l (BMI) Body [place] 38.0-38.9, mass index adult (BMI) 38.0-38.9, adult 01/19/2019 [facility] Blood Problem Resolve 2020-04-10 Jorge christiane glucose d 21:15:43 l abnormal Blood [place] (finding) glucose abnormal (finding) Resolved Problem 04/10/2020 [facility] Group, [facility], [facility] [place] Hypertensi Problem Active 2020-04-10 M emoria ve 21:15:43 l disorder, [place] systemic Hypertensi arterial ve (disorder) disorder, systemic arterial (disorder) Active Problem 04/10/2020 [facility], [facility] [place],[facility], [facility] [place] Obesity Problem Active 2020-04-10 Jorge christiane (disorder) 21:15:43 l Obesity [place] (disorder) Active Problem 04/10/2020 [facility], [facility] [place] Diabetes Problem Active 2019-01-19 Mem oria mellitus 13:38:30 l (disorder) Diabetes He rmann mellitus (disorder) Active Problem 01/19/2019 Medical Group,[facility] Diabetic Problem Active 2020-04-10 Mem oria autonomic 21:15:43 l neuropathy Diabetic He rmann (disorder) autonomic neuropathy (disorder) Active Problem 04/10/2020 Medical Group,[facility], [facility] [place] Onychomyco Problem Active 2020-04-10 M emoria sis 21:15:43 l (disorder) Jon n Onychomyco sis (disorder) Active Problem 04/10/2020 Medical Group,[facility], [facility] [place] Secondary Problem Active 2020-04-10 Me moria erectile 21:15:43 l dysfunctio Jon n n Secondary (disorder) erectile dysfunctio n (disorder) Active Problem 04/10/2020 Medical Group,[facility], [facility] [place] Inflammato Problem Active 2020-04-10 M emoria ry 21:15:43 l polyarthro Jon n shila Inflammato (disorder) ry polyarthro shila (disorder) Active Problem 04/10/2020 [facility], [facility] [place] Mixed Problem Active 2020-04-10 Memor ia hyperlipid 21:15:43 l emia Mixed [place] (disorder) hyperlipid emia (disorder) Active Problem 04/10/2020 Medical Group Encounter Problem Active 2019-05-31 Me moria for 02:45:08 l immunizati Jon n on Encounter for immunizati on Active Problem 9 [facility] Positive Problem Active 2019-05-31 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 Active Problem 05/31/2019 [facility] Diabetic Problem Active 2019-05-31 Mem oria autonomic 02:45:08 l neuropathy 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 Active Problem 05/31/2019 [facility] Vitamin D Problem Active 2019-05-31 Me moria deficiency 02:45:08 l Vitamin [place] D deficiency Active Problem 05/31/2019 [facility] Prepatella Problem Active 2019-05-31 M emoria r 02:45:08 l bursitis, [place] right knee Prepatella r bursitis, right knee Active Problem 05/31/2019 [facility] Abnormal Problem Active 2019-05-31 Mem oria immunologi 02:45:08 l ced Abnormal Jon n finding in immunologi serum, ced unspecifie finding in d serum, unspecifie d Active Problem 05/31/2019 [facility] Arthralgia Problem Active 2019-05-31 M emoria of 02:45:08 l multiple [place] joints Arthralgia of multiple joints Active Problem 05/31/2019 [facility] Benign Problem Active 2019-05-31 Memor ia essential 02:45:08 l hypertensi Benign Herm edwar on essential hypertensi on Active Problem 9 [facility] Encounter Problem 2017-082019-01-19 2019-01-19 Memoria for 09-07 11:59:28 11:59:28 l screening 05:04: [place] for Encounter 42 malignant for neoplasm screening of colon for malignant neoplasm of colon 8 01/19/2019 [facility] Allergies, Adverse Reactions, Alerts Allergy Allergy Status Severity Reaction(s) Onset Inactive Treating Comm ents Source Name Type Date Date Clinician Penicill Penicill Active rash Memori a in in 9-12 l 00:00: [place] 00 Penicill drug Active [facility] ins allergy [facility] [place] [facility] ans lisinopr lisinopr Active Memori a il il l [place] penicill penicill Active Memori a ins ins l [place] Family History Family Member Diagnosis Comments Start Date Stop Date Source Mother Family history of [facility] [place] hypertension Physicians Brother Family history of [facility] malignant neoplasm Physic ians Social History Social Habit Start Date Stop Date Quantity Comments Source Social History 2016-10-31 2016-10-31 Kary pena 21:20:42 21:20:42 Medications Ordered Filled Start Stop Current Ordering Indication Dosage Frequency Signature Comments Components Source Medication Medication Date Date Medication? Clinician (SIG) Name Name rosuvastati 2018- Yes 5 mg = 1 Me moria n 5 mg oral 9-20 tab, PO, l tablet 13:07: Bedtime, [place] 00 for cholestero l, # 90 tab, 3 Refill(s), [id number] carvedilol Yes 6.25 mg = Me moria 6.25 mg 9-16 1 tab, PO, l oral tablet 16:23: BID, for He rmann 49 blood pressure, # 180 tab, 1 Refill(s), [id number], malaysian label 24 HR Yes 750 mg = 1 Memori a Metformin 9-16 tab, PO, l hydrochlori 16:23: Dinner, Her borges de 750 MG 48 with Extended evening Release meal FOR Tablet diabetes, # 90 tab, 3 Refill(s), [id number], malaysian label. ; notice correction to SIG 81 Yes Nilanjana not Jorge christiane -13 Ashley defined l 02:45: [place] Carvedilol Yes Nilanjana 2 tabs Memoria - Ashley l 02:45: [place] meloxicam Yes 15 mg = 1 Mem oria 15 mg oral 7-17 tab, PO, l tablet 21:01: Daily, PRN Amber nn 00 Pain, # 90 tab, 1 Refill(s), [facility] [id number] Sodium 2017-08 No 500 mL, Memoria Chloride 09-01 Rate: 25 l 0.9% IV 500 17:27: ml/hr, Herm edwar mL 00 Infuse over: 20 hr, Route: IV, Dosing Weight 102.727 kg, Total Volume: 500, Start date: 07/02/18 12:27:00 CDT, Duration: 1 day, Stop date: 07/03/18 12:26:00 CDT, 2.19, m2 Hydrochloro No See Memori a thiazide 25 9-25 Instructio l MG Oral 17:36: ns, # 30 Jon n Tablet 05 tab, Refill(s) 1, TAKE 1 TABLET BY MOUTH DAILY NEEDED FOR SWELLING, Pharmacy: [facility] [id number] 24 HR Yes 750 mg = 1 Memori a Metformin 9-22 tab, PO, l hydrochlori 15:07: Dinner, Her borges de 750 MG 31 with Extended evening Release meal FOR Tablet diabetes, # 90 tab, 3 Refill(s), Pharmacy: [facility] [id number], malaysian label. ; notice correction to SIG 24 HR No 750 mg = 1 Memori a Metformin 9-14 tab, PO, l hydrochlori 19:30: Dinner, Her borges de 750 MG 08 with Extended evening Release meal to Tablet prevent diabetes, # 90 tab, 3 Refill(s), Pharmacy: [facility] [id number], malaysian label carvedilol Yes 6.25 mg = Me moria 6.25 mg 9-14 1 tab, PO, l oral tablet 19:30: BID, for He rmann 03 blood pressure, # 180 tab, 1 Refill(s), Pharmacy: [facility] [id number], malaysian label Hydrochloro No 25 mg = 1 M emoria thiazide 25 7-20 tab, PO, l MG Oral 19:00: Daily, Amber nn Tablet 00 NEEDED FOR SWELLING, # 30 tab, 1 Refill(s), Pharmacy: [facility] [id number], malaysian label sildenafil Yes 100 mg = 1 M emoria 100 MG Oral 7-20 tab, PO, l Tablet 19:00: Daily, PRN Amber nn [Viagra] 00 for erectile dysfunctio n, Take 30 minutes prior to intercours e, # 6 tab, 11 Refill(s), Pharmacy: [facility] [id number] Triamcinolo No 1 appl, Mem oria ne 7-20 TOP, BID, l Acetonide 19:00: apply a Amber nn 0.25 MG/ML 00 thin film Topical to the Cream itchy area as needed, # 15 gm, 2 Refill(s), Pharmacy: [facility] [id number] carvedilol Yes 6.25 mg = Me moria 6.25 mg 6-26 1 tab, PO, l oral tablet 16:13: BID, for He rmann 05 blood pressure, # 180 tab, 1 Refill(s), Pharmacy: [facility] [id number], malaysian label 24 HR Yes 750 mg = 1 Memori a Metformin 6-26 tab, PO, l hydrochlori 16:12: Dinner, Her borges de 750 MG 59 with Extended evening Release meal to Tablet prevent diabetes, # 90 tab, 3 Refill(s), Pharmacy: [facility] [id number], malaysian label Blood Yes 1 ea, Memoria Pressure 6-26 MISC, l Monitor 16:12: ONCE, any Amber nn Upper Arm 00 preferred Misc/Other brand to check BP once a day as directed for Hypertensi on I10, # 1 ea, 0 Refill(s) terbinafine Yes 250 mg = 1 Memoria 250 mg oral 6-26 tab, PO, l tablet 16:12: Daily, for Amber nn 00 toenails, X 90 day, # 90 tab, 0 Refill(s), Pharmacy: [facility] [id number], malaysian label carvedilol Yes See Memoria 6.25 mg 6-07 Instructio l oral tablet 17:53: ns, RAMKARISHNA H ermann 20 NICOLLE TABLETA POR LA BOCA DOS VECES AL RYAN(CADA 12 HORAS) PARA PRESSION MITCHEL, # 60 tab, 0 Refill(s), Pharmacy: [facility] carvedilol No 6.25 mg = Me moria 6.25 mg 6-07 1 tab, PO, l oral tablet 11:53: BID, for He rmann 00 blood pressure, # 60 tab, 0 Refill(s), Pharmacy: [facility] [id number], malaysian label carvedilol Yes 6.25 mg = Me moria 6.25 mg 1-05 1 tab, PO, l oral tablet 15:04: BID, for He rmann 15 blood pressure, # 180 tab, 1 Refill(s), Pharmacy: [facility] [id number], malaysian label carvedilol 2016-08 Yes 6.25 mg = Me moria 6.25 mg 2-16 1 tab, PO, l oral tablet 13:50: BID, # 60 H ermann 26 tab, 0 Refill(s), Pharmacy: [facility] Vital Signs Vital Name Observation Time Observation Value Comments Source Systolic (mm Hg) 2019-05-16 16:04:00 Jorge rial [place] Diastolic (mm Hg) 2019-05-16 16:04:00 Mem orial [place] Heart Rate 2019-05-16 16:04:00 [facility] [place] Temperature Oral (F) 2019-05-16 16:04:00 98.2 F [facility] [place] Height 2019-05-16 16:04:00 162.56 cm [facility] [place] Weight 2019-05-16 16:04:00 [facility] [place] BMI Calculated 2019-05-16 16:04:00 Memori al [place] Weight 2019-05-12 14:30:00 [facility] [place] Height 2019-05-12 14:30:00 [facility] [place] Heart Rate 2019-05-12 14:30:00 [facility] [place] Diastolic (mm Hg) 2019-05-12 14:30:00 Mem orial [place] Systolic (mm Hg) 2019-05-12 14:30:00 Jorge rial [place] Weight 2019-03-16 20:16:00 [facility] [place] BMI Calculated 2019-03-16 20:16:00 Memori al [place] Height 2019-03-16 20:16:00 162.56 cm [facility] [place] Temperature Oral (F) 2019-03-16 20:16:00 97.8 F [facility] [place] Heart Rate 2019-03-16 20:16:00 [facility] [place] Systolic (mm Hg) 2019-03-16 20:16:00 Jorge rial [place] Systolic (mm Hg) 2018-07-02 20:15:00 Jorge rial [place] Diastolic (mm Hg) 2018-07-02 20:15:00 Mem orial [place] Respitory Rate 2018-07-02 20:15:00 Memori al [place] Systolic (mm Hg) 2018-07-02 19:57:00 Jorge rial [place] Diastolic (mm Hg) 2018-07-02 19:57:00 Mem orial [place] Respitory Rate 2018-07-02 19:57:00 Memori al [place] Respitory Rate 2018-07-02 19:42:00 Memori al [place] Systolic (mm Hg) 2018-07-02 19:42:00 Jorge rial [place] Diastolic (mm Hg) 2018-07-02 19:42:00 Mem orial [place] Temperature Oral (F) 2018-06-30 13:18:00 98.2 F [facility] [place] Heart Rate 2018-06-30 13:18:00 [facility] [place] Height 2018-06-30 13:18:00 162.56 cm [facility] [place] BMI Calculated 2018-06-30 13:18:00 Memori al [place] Weight 2018-06-30 13:18:00 [facility] [place] Heart Rate 2018-06-17 14:00:00 [facility] [place] Temperature Oral (F) 2018-06-17 14:00:00 98.4 F [facility] [place] Systolic (mm Hg) 2018-06-17 14:00:00 Jorge rial [place] Diastolic (mm Hg) 2018-06-17 14:00:00 Mem orial [place] BMI Calculated 2018-06-17 14:00:00 Memori al [place] Weight 2018-06-17 14:00:00 [facility] [place] Height 2018-06-17 14:00:00 162.56 cm [facility] [place] BMI Calculated 2018-05-14 18:57:00 Memori al [place] Weight 2018-05-14 18:57:00 [facility] [place] Systolic (mm Hg) 2018-05-14 18:57:00 Jorge rial [place] Diastolic (mm Hg) 2018-05-14 18:57:00 Mem orial [place] Height 2018-05-14 18:57:00 167.64 cm [facility] [place] Temperature Oral (F) 2018-05-14 18:57:00 97.6 F [facility] [place] Heart Rate 2018-05-14 18:57:00 [facility] [place] Systolic (mm Hg) 2018-03-19 18:51:00 Jorge rial [place] Diastolic (mm Hg) 2018-03-19 18:51:00 Mem orial [place] Height 2018-03-19 18:27:00 162.56 cm [facility] [place] Temperature Oral (F) 2018-03-19 18:27:00 97.3 F [facility] [place] Weight 2018-03-19 18:27:00 [facility] [place] Heart Rate 2018-03-19 18:27:00 [facility] [place] BMI Calculated 2018-03-19 18:27:00 Memori al [place] Systolic (mm Hg) 2018-03-19 18:27:00 Jorge rial [place] Diastolic (mm Hg) 2018-03-19 18:27:00 Mem orial [place] Systolic (mm Hg) 2018-02-23 15:50:00 Jorge rial [place] Diastolic (mm Hg) 2018-02-23 15:50:00 Mem orial [place] Height 2018-02-23 15:50:00 162.56 cm [facility] [place] Weight 2018-02-23 15:50:00 [facility] [place] BMI Calculated 2018-02-23 15:50:00 Memori al [place] Heart Rate 2018-02-23 15:50:00 [facility] [place] Temperature Oral (F) 2018-02-23 15:50:00 98.5 F [facility] [place] Systolic (mm Hg) 2017-09-04 14:34:00 Jorge rial [place] Diastolic (mm Hg) 2017-09-04 14:34:00 Mem orial [place] Temperature Oral (F) 2017-09-04 14:27:00 97.6 F [facility] [place] Heart Rate 2017-09-04 14:27:00 [facility] [place] Weight 2017-09-04 14:27:00 [facility] [place] BMI Calculated 2017-09-04 14:27:00 Memori al [place] Height 2017-09-04 14:27:00 165.1 cm [facility] [place] Systolic (mm Hg) 2017-09-04 14:27:00 Jorge rial [place] Diastolic (mm Hg) 2017-09-04 14:27:00 Mem orial [place] Procedures Procedure Date / Time Performing Clinician Source Performed [U] XRAY KNEE 3 VWS 2019-05-20 00:00:00 [facility] RIGHT [id number] Physicians Colonoscopy<sup>1</sup> 2018-07-01 00:00:00 Jorge rial [place] Colonoscopy and biopsy 2012-08-31 00:00:00 Memor ial [place] of colon<sup>2</sup> Appendectomy [facility] [place] Hernia, inguinal, left [facility] [place] Encounters Start End Encounter Admission Attending Care Care Encounter Source Date/Time Date/Time Type Type Clinicians Facility Department ID 2020-04-07 2020-04-08 Outpatient [facility] [id number] 11:47:07 11:47:07 15 2020-04-07 2020-04-08 Outpatient [facility] [id number] 11:45:06 11:45:06 14 2019-05-25 2019-05-25 Appointmen [facility] Orthopedics [id number] 14:45:00 14:45:00 t; IVETH [facility], - [facility] JW WASHBURN [place] ANDREW, M.D. Physici M.D. ans 2019-05-20 2019-05-21 Outpatient [facility] [id number] 08:07:23 08:07:23 13 2019-05-19 2019-05-19 Outpatient PAMELA Hawk PAMELA - [id number] [facility] 08:26:00 08:26:00 [facility] 2019-05-16 2019-05-16 Outpatient Andrew, [facility] [id number] 11:00:00 23:59:59 Jacobo 16 2019-05-16 2019-05-16 Outpatient Andrew, [facility] [id number] 14:00:00 14:00:00 Jacobo 12 2019-05-16 2019-05-16 Outpatient Andrew, [facility] [id number] 14:00:00 14:00:00 Jacobo 14 2019-05-12 2019-05-12 Outpatient Ashley, MHOIP MHOIP [id number] 10:38:00 23:59:00 Nilanjana 2019-05-12 2019-05-12 Outpatient PRL - PRL - [id number] [facility] 09:30:00 09:30:00 [facility]umat[facility] 2019-03-19 2019-03-20 Outpatient [facility] [id number] 10:48:14 10:48:14 11 2019-03-16 2019-03-16 Outpatient Andrew, [facility] [id number] 15:30:00 23:59:59 Jacobo 15 2019-03-16 2019-03-16 Outpatient Andrew, [facility] [id number] 15:30:00 15:30:00 Jacobo 11 2019-03-16 2019-03-16 Outpatient Andrew, [facility] [id number] 15:30:00 15:30:00 Jacobo 13 2018-07-02 2018-07-02 Outpatient Matilde, [facility] [id number] 14:00:00 23:59:59 Mohummed 10 Ottoniel 2018-07-02 2018-07-02 Outpatient Matilde, MHSE MHSE [id number] 11:21:00 15:25:00 Mohummed 06 Radmillicent 2018-06-17 2018-06-17 Outpatient Matilde, MG MG [id number] 09:00:00 23:59:59 [facility] 09 Ottoniel 2018-05-14 2018-05-14 Outpatient Andrew, MG MG [id number] 14:30:00 23:59:59 Jacobo 08 2018-03-19 2018-03-19 Outpatient Andrew, MG MG [id number] 14:00:00 23:59:59 Jacobo 2018-02-23 2018-02-23 Outpatient Andrew, MG MG [id number] 11:00:00 23:59:59 Jacobo 2018-02-03 2018-02-04 Outpatient MG MG [id number] 16:48:00 23:59:59 2017-09-04 2017-09-04 Outpatient Andrew MG MG [id number] 08:30:00 23:59:59 Jacobo 2017-09-04 2017-09-04 Outpatient Andrew MG MG [id number] 08:30:00 23:59:59 Jacobo 2017-08-14 2017-08-15 Outpatient MG MG [id number] 16:01:00 23:59:59 00 2017-06-24 2017-06-24 Outpatient Elhor [id number] 11:59:00 23:59:00 Kodakalanna, [id number] Akuvi [id number] 5.24 Results Test Description Test Time Test Comments Results Result Comments Source ELECTROLYTES 2018-06-30 13.6 [facility] [place] 13:23:00 ELECTROLYTES 2018-06-30 94 [facility] [place] 13:23:00 ELECTROLYTES 2018-06-30 0.86 [facility] [place] 13:23:00 ELECTROLYTES 2018-06-30 8.7 [facility] [place] 13:23:00 ELECTROLYTES 2018-06-30 29 [facility] [place] 13:23:00 ELECTROLYTES 2018-06-30 107 [facility] [place] 13:23:00 ELECTROLYTES 2018-06-30 4.6 [facility] [place] 13:23:00 ELECTROLYTES 2018-06-30 145 [facility] [place] 13:23:00 ELECTROLYTES 2018-06-30 13 [facility] [place] 13:23:00 ELECTROLYTES 2018-06-30 136 [facility] borges 13:23:00 SPECIAL CHEMISTRY 2018-06-30 6.6 Jl Cuellar 13:23:00
[2020-04-30] MEDS ORDERED: NA CHLORIDE 0.9% 1,000 ML ONE ×2 (11:04→11:44)
[2020-04-30 11:18] LABS: Absolute Lymphocytes (CBC) 0.9 K/uL (0.7-4.9); Basophils % 0.5 % (0-1.3); Hematocrit 57.1 % (39.6-49.0); Lymphocytes % 6.6 % (15.3-44.8); MPV 11.7 fL (7.6-11.3); RBC Red Blood Cell Count 6.55 M/uL (4.33-5.43)
[2020-04-30 11:24] LABS: Potassium 4.8 mmol/L (3.5-5.1)
--- NOTE | 2020-04-30 11:52 | ER ---
Nurse's Notes [facility] Name: Mathew Nowak Age: 60 yrs Sex: Male : 1960 Arrival Date: 04/30/2020 Time: 09:40 Bed 24 Private MD: Diagnosis: Hyperglycemia, unspecified;Dehydration Presentation: 04/30 10:10 Chief complaint: Patient states: chills, weakness, fatigue that began on Thursday. Pt aa5 reports nausea this morning, denies vomiting, denies diarrhea. Pt denies fever, denies cough. 10:10 Coronavirus screen: Client denies travel out of the [place] in the last 14 days. At this aa5 time, the client does not indicate any symptoms associated with coronavirus-19. Ebola Screen: Patient negative for fever greater than or equal to 101.5 degrees Fahrenheit, and additional compatible Ebola Virus Disease symptoms. Risk Assessment: Do you want to hurt yourself or someone else? Patient reports no desire to harm self or others. 10:10 Acuity: KEILA 3 aa5 10:10 Method Of Arrival: Ambulatory aa5 10:10 Initial Sepsis Screen: Does the patient meet any 2 criteria? No. Patient's initial aa5 sepsis screen is negative. Does the patient have a suspected source of infection? No. Patient's initial sepsis screen is negative. 10:10 Onset of symptoms was April 30, 2020. aa5 Historical: - Allergies: 10:15 PENICILLINS; aa5 - Home Meds: 10:15 Metformin Oral [Active]; carvedilol oral oral [Active]; unknown medication for high aa5 cholesterol [Active]; - PMHx: 10:15 Hypertension; Hyperlipidemia; Diabetes - NIDDM; aa5 - PSHx: 10:15 right facial; aa5 - Immunization history:: Adult Immunizations unknown. - Social history:: Smoking status: Patient denies any tobacco usage or history of. - Family history:: not pertinent. - Hospitalizations: : No recent hospitalization is reported. Screenin:35 Abuse screen: Denies threats or abuse. Nutritional screening: No deficits noted. em Tuberculosis screening: No symptoms or risk factors identified. Fall Risk None identified. Assessment: 10:35 General: Appears in no apparent distress. comfortable, Behavior is calm, cooperative, em appropriate for age, Reports fatigue for 12-24 hours, Denies fever. Pain: Denies pain. Neuro: Level of Consciousness is awake, alert, obeys commands, Oriented to person, place, time, situation, Appropriate for age. Cardiovascular: Denies chest pain, shortness of breath, Capillary refill < 3 seconds Patient's skin is warm and dry. Rhythm is sinus rhythm. Respiratory: Airway is patent Respiratory effort is even, unlabored, Respiratory pattern is regular, symmetrical. GI: Reports nausea, Patient currently denies diarrhea, vomiting. Derm: Skin is intact, is healthy with good turgor, Skin is pink, warm \T\ dry. Musculoskeletal: Capillary refill < 3 seconds, Range of motion: intact in all extremities. 11:45 Reassessment: Patient appears in no apparent distress at this time. Patient and/or em family updated on plan of care and expected duration. Pain level reassessed. Patient is alert, oriented x 3, equal unlabored respirations, skin warm/dry/pink. 12:00 Reassessment: pending completion of IV fluids before being discharged. em Vital Signs: 10:10 BP 133 / 92; Pulse 96; Resp 18 S; Temp 97.0(O); Pulse Ox 99% on R/A; Weight 106.59 kg aa5 (R); Height 5 ft. 5 in. (165.10 cm) (R); Pain 0/10; 11:45 BP 143 / 88; Pulse 85; Resp 18; Pulse Ox 99% on R/A; Pain 0/10; em 10:10 Body Mass Index 39.11 (106.59 kg, 165.10 cm) aa5 ED Course: 09:40 Patient arrived in ED. ag5 10:12 Arm band placed on. aa5 10:13 Triage completed. aa5 10:27 José Miguel Jones, RN is Primary Nurse. em 10:30 Humphrey Richards MD is Attending Physician. rn 10:30 Joi Hubbard FNP-C [facility]. snw 10:35 Patient has correct armband on for positive identification. Placed in gown. Bed in low em position. Call light in reach. Pulse ox on. NIBP on. 11:00 Initial lab(s) drawn, by me, sent to lab. Inserted saline lock: 22 gauge in right em antecubital area, using aseptic technique. Blood collected. 12:58 No provider procedures requiring assistance completed. IV discontinued, intact, em bleeding controlled, No redness/swelling at site. Pressure dressing applied. Administered Medications: 10:44 Not Given (Duplicate Order): Insulin Regular Human 5 units Sub-Q once rn 11:00 Drug: NS 0.9% 1000 ml Route: IV; Rate: 1000 ml; Site: right antecubital; em 12:58 Follow up: IV Status: Completed infusion; IV Intake: 1000ml em 11:44 Drug: NS 0.9% 1000 ml Route: IV; Rate: 1000 ml; Site: right antecubital; em 12:58 Follow up: IV Status: Completed infusion; IV Intake: 1000ml em Point of Care Testing: Blood Glucose: 10:15 Blood Glucose: 278 mg/dL; aa5 Ranges: Intake: 12:58 IV: 1000ml; Total: 1000ml. em 12:58 IV: 1000ml; Total: 2000ml. em Outcome: 11:52 Discharge ordered by MD. rn 12:58 Discharged to home ambulatory. em 12:58 Condition: improved 12:58 Discharge instructions given to patient, Instructed on discharge instructions, follow up and referral plans. medication usage, Demonstrated understanding of instructions, follow-up care, medications, Prescriptions given X 1. 12:59 Patient left the ED. em Signatures: Joi Hubbard, MARILU-C CALL CENTER NURSE-Lizbetw José Miguel Jones, RN RN em Humphrey Richards MD MD rn Calderon, Audri, RN RN aa5 Jovita Shankar5
--- NOTE | 2020-04-30 11:53 | EDPHYS ---
Physician Documentation [facility] Name: Mathew Nowak Age: 60 yrs Sex: Male : 1960 Arrival Date: 04/30/2020 Time: 09:40 Bed 24 Private MD: ED Physician Humphrey Richards HPI: 04/30 11:11 This 60 yrs old Male presents to ER via Ambulatory with complaints of rn Weakness, Blood Sugar Problem. 11:11 Reports generalized weakness and fatigue, since yesterday, no fever/chills, does not rn feel sick, + increased thirst, stopped taking metformin 1 month ago because ran out, no trauma. No chest pain/sob/abd pain/vomiting/diarrhea. . Onset: The symptoms/episode began/occurred yesterday. Severity of symptoms: At their worst the symptoms were mild in the emergency department the symptoms are unchanged. The patient has not experienced similar symptoms in the past. The patient has not recently seen a physician. Historical: - Allergies: 10:15 PENICILLINS; aa5 - Home Meds: 10:15 Metformin Oral [Active]; carvedilol oral oral [Active]; unknown medication for high aa5 cholesterol [Active]; - PMHx: 10:15 Hypertension; Hyperlipidemia; Diabetes - NIDDM; aa5 - PSHx: 10:15 right facial; aa5 - Immunization history:: Adult Immunizations unknown. - Social history:: Smoking status: Patient denies any tobacco usage or history of. - Family history:: not pertinent. - Hospitalizations: : No recent hospitalization is reported. ROS: 11:11 Constitutional: Negative for fever, chills, and weight loss, Eyes: Negative for injury, rn pain, redness, and discharge, Cardiovascular: Negative for chest pain, palpitations, and edema, Respiratory: Negative for shortness of breath, cough, wheezing, and pleuritic chest pain, Abdomen/GI: Negative for abdominal pain, nausea, vomiting, diarrhea, and constipation, MS/Extremity: Negative for injury and deformity, Skin: Negative for injury, rash, and discoloration, Neuro: Negative for headache, numbness, tingling, and seizure. Exam: 11:07 ECG was reviewed by the Attending Physician. rn 11:11 Constitutional: This is a well developed, well nourished patient who is awake, alert, rn and in no acute distress. Ambulatory to room without difficulty. Head/Face: Normocephalic, atraumatic. ENT: dry MM Cardiovascular: Regular rate and rhythm. No pulse deficits. Respiratory: No increased work of breathing, no retractions or nasal flaring. Abdomen/GI: soft, non-tender Skin: Warm, dry MS/ Extremity: Pulses equal, no cyanosis. Neurovascular intact. Full, normal range of motion. Equal circumference. Neuro: Awake and alert, GCS 15, oriented to person, place, time, and situation. Cranial nerves II-XII grossly intact. Motor strength 5/5 in all extremities. Sensory grossly intact. Cerebellar exam normal. Normal gait. Vital Signs: 10:10 BP 133 / 92; Pulse 96; Resp 18 S; Temp 97.0(O); Pulse Ox 99% on R/A; Weight 106.59 kg aa5 (R); Height 5 ft. 5 in. (165.10 cm) (R); Pain 0/10; 11:45 BP 143 / 88; Pulse 85; Resp 18; Pulse Ox 99% on R/A; Pain 0/10; em 10:10 Body Mass Index 39.11 (106.59 kg, 165.10 cm) aa5 MDM: 10:30 Patient medically screened. rn 11:50 Differential Diagnosis dehydration, hyperglycemia. rn 11:50 Data reviewed: vital signs, nurses notes, lab test result(s), EKG, and as a result, I rn will discharge patient. Counseling: I had a detailed discussion with the patient and/or guardian regarding: the historical points, exam findings, and any diagnostic results supporting the discharge/admit diagnosis, lab results, the need for outpatient follow up, to return to the emergency department if symptoms worsen or persist or if there are any questions or concerns that arise at home. Response to treatment: the patient's symptoms have markedly improved after treatment, and as a result, I will discharge patient. Special discussion: I discussed with the patient/guardian in detail that at this point there is no indication for admission to the hospital. It is understood, however, that if the symptoms persist or worsen the patient needs to return immediately for re-evaluation. ED course: Pt improved, given 2L bolus, + hyperglycemia without acidosis, no AG, will dc home with metformin refill as he has been out, instructed to drink more water. . 08/31 10:27 Order name: Glucose, Ancillary Testing; Complete Time: 10:32 EDMS 04/30 10:38 Order name: CBC with Diff; Complete Time: 11: rn 04/30 10:38 Order name: Basic Metabolic Panel; Complete Time: 11: rn 04/30 10:38 Order name: IV Start; Complete Time: 11:05 rn 04/30 10:38 Order name: EKG - Nurse/Tech; Complete Time: 11: rn 04/30 10:38 Order name: EKG; Complete Time: 10:39 rn EC:07 Rate is 97 beats/min. Rhythm is regular. HI interval is normal. QRS interval is normal. rn QT interval is normal. No Q waves. T waves are Normal. No ST changes noted. Clinical impression: NSR w/ Non-specific ST/T Changes. Interpreted by me. Reviewed by me. Administered Medications: 10:44 Not Given (Duplicate Order): Insulin Regular Human 5 units Sub-Q once rn 11:00 Drug: NS 0.9% 1000 ml Route: IV; Rate: 1000 ml; Site: right antecubital; em 12:58 Follow up: IV Status: Completed infusion; IV Intake: 1000ml em 11:44 Drug: NS 0.9% 1000 ml Route: IV; Rate: 1000 ml; Site: right antecubital; em 12:58 Follow up: IV Status: Completed infusion; IV Intake: 1000ml em Point of Care Testing: Blood Glucose: 10:15 Blood Glucose: 278 mg/dL; aa5 Ranges: Critical Glucose Levels:Adult <50 mg/dl or >400 mg/dl <40 mg/dl or >180 mg/dl Disposition: 04/30/20 11:52 Discharged to Home. Impression: Hyperglycemia, unspecified, Dehydration. - Condition is Stable. - Discharge Instructions: Dehydration, Adult, Hyperglycemia, Blood Glucose Monitoring, Adult. - Prescriptions for Metformin 500 mg Oral Tablet Sustained Release 24 hr - take 1 tablet by ORAL route once daily with evening meal; 90 tablet. - Work release form, Medication Reconciliation Form, Thank You Letter, Antibiotic Education, Prescription Opioid Use form. - Follow up: Private Physician; When: As needed; Reason: Recheck today's complaints, Re-evaluation by your physician. - Problem is new. - Symptoms have improved. Signatures: Dispatcher [employer] José Miguel Car RN RN Humphrey Zafar MD MD rn Calderon, Audri, MARLEE RN aa5 Corrections: (The following items were deleted from the chart) 12:59 11:52 04/30/2020 11:52 Discharged to Home. Impression: Hyperglycemia, unspecified; em Dehydration. Condition is Stable. Forms are Medication Reconciliation Form, Thank You Letter, Antibiotic Education, Prescription Opioid Use. Follow up: Private Physician; When: As needed; Reason: Recheck today's complaints, Re-evaluation by your physician. Problem is new. Symptoms have improved. rn
== END 2020-04-30 12:59 | disposition home or self-care (01) ==
LOC: ER 09:37
DX: E11.65 Type 2 diabetes mellitus with hyperglycemia (principal); E86.0 Dehydration; I10 Essential (primary) hypertension; E78.5 Hyperlipidemia, unspecified; Z88.0 Allergy status to penicillin
CPT/HCPCS: 93005; 85025; 80048; 36415; 82947; J7030 ×2; 96360; 96361; 99284

== ENCOUNTER 2021-05-28 20:30 | Observation (INO) | payer BC ==
[2021-05-28 22:01] LABS: Absolute Lymphocytes (CBC) 0.6 K/uL (0.7-4.9); Basophils % 0.2 % (0-1.3); Hematocrit 43.6 % (39.6-49.0); Lymphocytes % 4.1 % (15.3-44.8); MPV 10.8 fL (7.6-11.3); RBC Red Blood Cell Count 4.91 M/uL (4.33-5.43)
[2021-05-28 22:18] LABS: Albumin 3.7 g/dL (3.4-5.0); Bilirubin Direct 0.1 mg/dL (0-0.2); Bilirubin Total 0.5 mg/dL (0.2-1.0); Potassium 3.9 mmol/L (3.5-5.1); Protein, Total 7.4 g/dL (6.4-8.2)
[2021-05-28] MEDS ORDERED: MORPHINE 4 MG/ML SYR ONE (22:21)
[2021-05-28] MEDS ORDERED: ONDANSETRON 4 MG/2 ML VIAL ONE (22:22)
[2021-05-28] MEDS ORDERED: NA CHLORIDE 0.9% 1,000 ML ONE (22:22)
[2021-05-28 22:29] LABS: Urine Blood 1+ (Negative); Urine Glucose Negative (Negative); Urine Protein Negative (Negative); Urine Specific Gravity 1.025 (1.005-1.030); Urine pH 6.5 (5.0-7.0)
[2021-05-28 23:17] LABS: Blood Morphology Comment NOT SEEN (NOT SEEN); Platelet Estimate ADEQ
--- NOTE | 2021-05-28 23:50 | EDPHYS ---
Physician Documentation [facility] Name: Mathew Nowak Age: 61 yrs Sex: Male : 1960 Arrival Date: 05/28/2021 Time: 20:34 Bed 23 Private MD: ED Physician Inocencio Turk HPI: 05/28 21:40 This 61 yrs old Male presents to ER via Ambulatory with complaints of Doesn't mh7 Feel Right, - cold, shaky. 21:40 The patient presents with abdominal pain in the lower abdomen. Onset: The mh7 symptoms/episode began/occurred today, at 19:00. The symptoms do not radiate. 21:40 Associated signs and symptoms: Pertinent positives: constipation, dysuria, Chills, mh7 Pertinent negatives: nausea, vomiting, and diarrhea, nausea and vomiting, anorexia, blood in stools, chest pain, diarrhea, fever, headache, hematuria, nausea, palpitations, shortness of breath, testicular pain, vomiting, vomiting blood. 21:40 The symptoms are described as intermittent, vague, waxing/waning. Modifying factors: mh7 The symptoms are alleviated by nothing, the symptoms are aggravated by nothing. Severity of pain: At its worst the pain was moderate today, in the emergency department the pain has improved moderately. Historical: - Allergies: 22:05 PENICILLINS (Vomiting); df1 - Home Meds: 22:05 carvedilol 12.5 mg oral tab 1 tab daily [Active]; metformin 750 mg oral Tb24 1 tab once df1 daily [Active]; losartan 100 mg oral tab 1 tab once daily [Active]; rosuvastatin 5 mg oral cpSP 1 cap once daily [Active]; - PMHx: 21:01 Diabetes - NIDDM; Hyperlipidemia; Hypertension; wg - PSHx: 22:07 Appendectomy; df1 - Immunization history:: Adult Immunizations up to date. - Social history:: Smoking status: Patient denies any tobacco usage or history of. ROS: 21:40 Eyes: Negative for injury, pain, redness, and discharge, ENT: Negative for injury, mh7 pain, and discharge, Neck: Negative for injury, pain, and swelling, Cardiovascular: Negative for chest pain, palpitations, and edema, Respiratory: Negative for shortness of breath, cough, wheezing, and pleuritic chest pain, Back: Negative for injury and pain, MS/Extremity: Negative for injury and deformity, Skin: Negative for injury, rash, and discoloration, Neuro: Negative for headache, weakness, numbness, tingling, and seizure, Psych: Negative for depression, anxiety, suicide ideation, homicidal ideation, and hallucinations, Allergy/Immunology: Negative for hives, rash, and allergies, Endocrine: Negative for neck swelling, polydipsia, polyuria, polyphagia, and marked weight changes, Hematologic/Lymphatic: Negative for swollen nodes, abnormal bleeding, and unusual bruising. Exam: 21:40 Constitutional: This is a well developed, well nourished patient who is awake, alert, mh7 and in no acute distress. Head/Face: Normocephalic, atraumatic. Eyes: Pupils equal round and reactive to light, extra-ocular motions intact. Lids and lashes normal. Conjunctiva and sclera are non-icteric and not injected. Cornea within normal limits. Periorbital areas with no swelling, redness, or edema. Neck: Trachea midline, no thyromegaly or masses palpated, and no cervical lymphadenopathy. Supple, full range of motion without nuchal rigidity, or vertebral point tenderness. No Meningismus. Chest/axilla: Normal chest wall appearance and motion. Nontender with no deformity. No lesions are appreciated. Cardiovascular: Regular rate and rhythm with a normal S1 and S2. No gallops, murmurs, or rubs. Normal PMI, no JVD. No pulse deficits. Respiratory: Lungs have equal breath sounds bilaterally, clear to auscultation and percussion. No rales, rhonchi or wheezes noted. No increased work of breathing, no retractions or nasal flaring. 21:40 Back: No spinal tenderness. No costovertebral tenderness. Full range of motion. Skin: Warm, dry with normal turgor. Normal color with no rashes, no lesions, and no evidence of cellulitis. MS/ Extremity: Pulses equal, no cyanosis. Neurovascular intact. Full, normal range of motion. Neuro: Awake and alert, GCS 15, oriented to person, place, time, and situation. Cranial nerves II-XII grossly intact. Motor strength 5/5 in all extremities. Sensory grossly intact. Cerebellar exam normal. Normal gait. Psych: Awake, alert, with orientation to person, place and time. Behavior, mood, and affect are within normal limits. 21:40 Abdomen/GI: Inspection: obese scar(s), are noted in the right lower quadrant, Bowel sounds: normal, in all quadrants, Palpation: moderate abdominal tenderness, in the suprapubic area, mass, is not appreciated, rebound tenderness, is not appreciated, voluntary guarding, is not appreciated, involuntary guarding, is not appreciated, no appreciated organomegaly, Rectal exam: the exam is deferred, because of patient request, Indicators: McBurney's point is not tender, Frankel's sign is negative, Rovsing's sign is negative, Obturator sign is negative, Psoas sign is negative, Liver: no appreciated palpable abnormalities, Hernia: not appreciated. Vital Signs: 20:57 BP 146 / 84; Pulse 88; Resp 15; Temp 98.9; Pulse Ox 100% on R/A; Weight 107.5 kg; wg Height 5 ft. 5 in. (165.10 cm); Pain 7/10; 22:09 BP 143 / 90; Pulse 92; Resp 18; Pulse Ox 98% on R/A; df1 05/29 00:25 BP 137 / 88; Pulse 87; Resp 18; Pulse Ox 99% on R/A; df1 01:19 BP 116 / 65; Pulse 66; Resp 18; Pulse Ox 100% on R/A; df1 05/28 20:57 Body Mass Index 39.44 (107.50 kg, 165.10 cm) wg MDM: 05/28 23:48 Differential diagnosis: bowel obstruction, diverticulitis, gastroesophageal reflux mh7 disease, non-specific abd pain, pancreatitis, Pyelonephritis, Ureterolithiasis, urinary tract infection. Data reviewed: vital signs, nurses notes, lab test result(s), CBC, electrolytes, urinalysis, radiologic studies, CT scan. Data interpreted: Pulse oximetry: on room air is 98 %. Interpretation: normal. Counseling: I had a detailed discussion with the patient and/or guardian regarding: the historical points, exam findings, and any diagnostic results supporting the discharge/admit diagnosis, the presence of at least one elevated blood pressure reading (>120/80) during this emergency department visit, lab results, radiology results, the need for further work-up and treatment in the hospital. Response to treatment: the patient's symptoms have mildly improved after treatment. 23:50 Patient medically screened. [facility] 05/28 21:03 Order name: Basic Metabolic Panel; Complete Time: 22:21 05/28 21:03 Order name: CBC with Diff; Complete Time: 23:18 05/28 21:03 Order name: Hepatic Function; Complete Time: 22:21 05/28 21:03 Order name: Lipase; Complete Time: 22:21 05/28 22:03 Order name: Manual Differential; Complete Time: 23:18 [facility] 05/28 22:28 Order name: Urine Dipstick-Ancillary; Complete Time: 22:43 [facility] 05/28 23:18 Order name: Blood Culture Adult (2) [facility] 05/28 23:18 Order name: Urine Microscopic Only [facility] 05/28 23:19 Order name: Urine Microscopic Only [facility] 05/28 23:20 Order name: Lactate [facility] 05/28 23:20 Order name: Procalcitonin [facility] 05/29 00:19 Order name: COVID-19/FLU A+B [facility] 05/28 21:03 Order name: Urine Dipstick-Ancillary (obtain specimen); Complete Time: 21:45 05/28 21:03 Order name: Bladder Scanner; Complete Time: 21:45 05/28 21:03 Order name: IV Saline Lock; Complete Time: 21:45 05/28 21:03 Order name: Labs collected and sent; Complete Time: 21:45 05/28 22:15 Order name: CT Abd/Pelvis - IV Contrast Only [facility] Administered Medications: 21:58 Drug: NS 0.9% 1000 ml Route: IV; Rate: 1000 ml; Site: right antecubital; 05/29 00:22 Follow up: IV Status: Completed infusion; IV Intake: 1000ml df05/28 21:58 Drug: morphine 4 mg Route: IVP; Site: right antecubital; df05/29 00:22 Follow up: Response: No adverse reaction; Pain is decreased df05/28 21:58 Drug: Zofran (Ondansetron) 4 mg Route: IVP; Site: right antecubital; df05/29 00:21 Follow up: Response: No adverse reaction; Nausea is decreased df1 00:21 Drug: Cipro (ciprofloxacin) 400 mg Volume: 200 ml; Route: IVPB; Infused Over: 60 mins; df1 Site: right wrist; 01:19 Follow up: BP 116 / 65; Pulse 66 bpm; Resp 18 bpm; Pulse Ox 100% RA df1 01:19 Follow up: IV Status: Completed infusion; IV Intake: 200ml df1 01:20 Drug: Flagyl (metroNIDAZOLE) 500 mg Volume: 100 ml; Route: IVPB; Rate: 200 ml/hr; df1 Infused Over: 30 mins; Site: right wrist; 02:04 Follow up: IV Status: Completed infusion; IV Intake: 100ml df1 Disposition Summary: 05/28/21 23:50 Hospitalization Ordered Hospitalization Status: Inpatient Admission [facility] Provider: Chato Valdez [facility] Location: Telemetry/MedSurg (Inpatient) [facility] Condition: Stable [facility] Problem: new [facility] Symptoms: have improved [facility] Bed/Room Type: Standard [facility] Room Assignment: 223(05/29/21 01:24) Diagnosis - Diverticulitis of large intestine without perforation or abscess without bleeding [facility] - [facility] Forms: - Medication Reconciliation Form [facility] - SBAR form [facility] Signatures: Dispatcher [employer] EDMS Alyssa Lopez RN RN Mahamed Colin, BAG MACHINE TENDER-C BAG MACHINE TENDER-Inocencio Espinoza MD MD [facility] Bradley Baeza RN Keely Murphy df1 Corrections: (The following items were deleted from the chart) 05/28 22:09 21:01 Allergies: PENICILLINS; df1 22:09 21:01 Home Meds: carvedilol Oral; df1 22:09 21:01 Home Meds: Metformin Oral; df1 22:09 22:05 Allergies: Losartan; 1 df1 22:09 22:05 Home Meds: Coreg 12.5 mg Oral tab 1 tab daily; 1 df1 23:31 23:21 CORONAVIRUS+MR.LAB.BRZ ordered. EDMS EDMS 23:32 23:21 Influenza Screen (A \T\ B)+BA.LAB.BRZ ordered. EDMS EDMS 05/29 01:24 05/28 23:50 [facility]
--- NOTE | 2021-05-28 23:50 | ER ---
Nurse's Notes [facility] Name: Mathew Nowak Age: 61 yrs Sex: Male : 1960 Arrival Date: 05/28/2021 Time: 20:34 Bed 23 Private MD: Diagnosis: Diverticulitis of large intestine without perforation or abscess without bleeding;Bandemia Presentation: 05/28 20:57 Chief complaint: Patient states: Pt states around 7pm he felt abd discomfort in his wg lower abdomen. States he became weak, shaky and had chills. Pt states he is having pain upon urination and moving his bowels. Pt denies pain into testicles, denies hx of kidney stones. Pt states he is voiding in small amounts. Pt denies SOB, CP, N/V/D and dizziness. Coronavirus screen: Vaccine status: Patient reports receiving the 2nd dose of the covid vaccine. Date October 29, 2020 At this time, the client does not indicate any symptoms associated with coronavirus-19. Ebola Screen: Patient negative for fever greater than or equal to 101.5 degrees Fahrenheit, and additional compatible Ebola Virus Disease symptoms Patient denies exposure to infectious person. Patient denies travel to an Ebola-affected area in the 21 days before illness onset. Initial Sepsis Screen: Does the patient meet any 2 criteria? No. Patient's initial sepsis screen is negative. Does the patient have a suspected source of infection? No. Patient's initial sepsis screen is negative. Risk Assessment: Do you want to hurt yourself or someone else? Patient reports no desire to harm self or others. Onset of symptoms was May 28, 2021 at 19:00. 20:57 Method Of Arrival: Ambulatory 20:57 Acuity: KEILA 3 05/29 00:51 Note Spouses name: Trixie Nowak [phone] Family member: Cathi Jimenez df1 . Triage Assessment: 05/28 21:01 General: Appears distressed, uncomfortable, obese, well groomed, Behavior is wg cooperative, appropriate for age. Pain: Complains of pain in Lower Abdomen. : Reports burning with urination, urgency. Historical: - Allergies: 22:05 PENICILLINS (Vomiting); df1 - Home Meds: 22:05 carvedilol 12.5 mg oral tab 1 tab daily [Active]; metformin 750 mg oral Tb24 1 tab once df1 daily [Active]; losartan 100 mg oral tab 1 tab once daily [Active]; rosuvastatin 5 mg oral cpSP 1 cap once daily [Active]; - PMHx: 21:01 Diabetes - NIDDM; Hyperlipidemia; Hypertension; wg - PSHx: 22:07 Appendectomy; df1 - Immunization history:: Adult Immunizations up to date. - Social history:: Smoking status: Patient denies any tobacco usage or history of. Screenin:46 Abuse screen: Denies threats or abuse. Nutritional screening: No deficits noted. df1 Tuberculosis screening: No symptoms or risk factors identified. Fall Risk None identified. Assessment: 05/29 00:40 General: Appears in no apparent distress. uncomfortable. Pain: Complains of pain in df1 abdomen Pain radiates to pelvis. Neuro: No deficits noted. Cardiovascular: No deficits noted. Respiratory: No deficits noted. GI: Abdomen is round non-distended, Stools are reported to be loose, diarrhea. Last BM was May 27, 2021. Bowel sounds present X 4 quads. Abd is soft Abdomen is tender to palpation X 4 quads. Reports nausea. : Reports urinary frequency, Denies. EENT: No deficits noted. Derm: No deficits noted. Musculoskeletal: No deficits noted. Vital Signs: 05/28 20:57 BP 146 / 84; Pulse 88; Resp 15; Temp 98.9; Pulse Ox 100% on R/A; Weight 107.5 kg; wg Height 5 ft. 5 in. (165.10 cm); Pain 7/10; 22:09 BP 143 / 90; Pulse 92; Resp 18; Pulse Ox 98% on R/A; df1 05/29 00:25 BP 137 / 88; Pulse 87; Resp 18; Pulse Ox 99% on R/A; df1 01:19 BP 116 / 65; Pulse 66; Resp 18; Pulse Ox 100% on R/A; df1 05/28 20:57 Body Mass Index 39.44 (107.50 kg, 165.10 cm) wg ED Course: 05/28 20:34 Patient arrived in ED. bp1 21:01 Triage completed. wg 21:02 Arm band placed on left wrist. wg 21:16 Inocencio Turk MD is Attending Physician. 7 21:21 Keely Murphy is Primary Nurse. df1 21:45 Basic Metabolic Panel Sent. df1 21:45 CBC with Diff Sent. df1 21:45 Hepatic Function Sent. df1 21:45 Lipase Sent. df1 21:46 Patient has correct armband on for positive identification. Placed in gown. Bed in low df1 position. Call light in reach. Side rails up X 1. Adult w/ patient. 21:46 No provider procedures requiring assistance completed. Inserted saline lock: 20 gauge df1 in right wrist, using aseptic technique. 22:56 CT Abd/Pelvis - IV Contrast Only In Process Unspecified. EDMS 23:26 Urine Microscopic Only Sent. df1 23:26 Urine Microscopic Only Sent. df1 23:49 Chato Valdez DO is Hospitalizing Provider. [facility] 23:56 Procalcitonin Sent. df1 23:56 Lactate Sent. df1 05/29 00:21 Procalcitonin Sent. df1 00:21 Lactate Sent. df1 00:21 Blood Culture Adult (2) Sent. df1 01:20 Inserted saline lock: 20 gauge in left hand, using aseptic technique. df1 01:44 Patient admitted, IV remains in place. df1 Administered Medications: 05/28 21:58 Drug: NS 0.9% 1000 ml Route: IV; Rate: 1000 ml; Site: right antecubital; df1 05/29 00:22 Follow up: IV Status: Completed infusion; IV Intake: 1000ml df1 05/28 21:58 Drug: morphine 4 mg Route: IVP; Site: right antecubital; df1 05/29 00:22 Follow up: Response: No adverse reaction; Pain is decreased df1 05/28 21:58 Drug: Zofran (Ondansetron) 4 mg Route: IVP; Site: right antecubital; df1 05/29 00:21 Follow up: Response: No adverse reaction; Nausea is decreased df1 00:21 Drug: Cipro (ciprofloxacin) 400 mg Volume: 200 ml; Route: IVPB; Infused Over: 60 mins; df1 Site: right wrist; 01:19 Follow up: BP 116 / 65; Pulse 66 bpm; Resp 18 bpm; Pulse Ox 100% RA df1 01:19 Follow up: IV Status: Completed infusion; IV Intake: 200ml df1 01:20 Drug: Flagyl (metroNIDAZOLE) 500 mg Volume: 100 ml; Route: IVPB; Rate: 200 ml/hr; df1 Infused Over: 30 mins; Site: right wrist; 02:04 Follow up: IV Status: Completed infusion; IV Intake: 100ml df1 Intake: 00:22 IV: 1000ml; Total: 1000ml. df1 01:19 IV: 200ml; Total: 1200ml. df1 02:04 IV: 100ml; Total: 1300ml. df1 Outcome: 05/28 23:50 Decision to Hospitalize by Provider. [facility] 05/29 01:39 Admitted to Med/surg accompanied by tech. df1 Condition: stable Instructed on the need for admit. 02:05 Patient left the ED. 1 Signatures: Dispatcher [employer] EDTN Yoli Quiroga Maurice, MD MD [facility] Brdaley Baeza, MARLEE Keely Murphy df Corrections: (The following items were deleted from the chart) 05/28 22:09 21:01 Allergies: PENICILLINS; [facility] 22:09 21:01 Home Meds: carvedilol Oral; [facility] 22:09 21:01 Home Meds: Metformin Oral; [facility] 22: 22:05 Allergies: Losartan; [place] [id number] 22: 22:05 Home Meds: Coreg 12.5 mg Oral tab 1 tab daily; 1 [facility] 23:32 23:32 Influenza Screen (A \T\ B)+[id number].LAB.WALIZ drawn and sent. [address] 05/29 01:21 05/28 21:46 Inserted saline lock: 20 gauge in right antecubital area, using aseptic df1 technique. df1
[2021-05-28 23:54] LABS: Urine Bacteria <20 /HPF (NONE SEEN); Urine RBC <5 /HPF (NONE SEEN)
[2021-05-29] MEDS ORDERED: METRONIDAZOLE 500mg IVPB 500 MG/100 ML BAG IV ONE (00:11)
[2021-05-29] MEDS ORDERED: CIPROFLOXACIN 400mg IV 400 MG/200 ML BAG IV ONE (00:11)
[2021-05-29 00:19] LABS: SARS-COV-2 RT PCR NEGATIVE (NEGATIVE)
[2021-05-29] MEDS ORDERED: ONDANSETRON 4 MG/2 ML VIAL ONE (00:23)
[2021-05-29] MEDS ORDERED: MORPHINE 4 MG/ML SYR ONE (00:23)
--- NOTE | 2021-05-29 01:03 | P.HP ---
Certification for Inpatient Patient admitted to: Observation With expected LOS: <2 Midnights Patient will require the following post-hospital care: None Practitioner: I am a practitioner with admitting privileges, knowledge of patient current condition, hospital course, and medical plan of care. Services: Services provided to patient in accordance with Admission requirements found in Title 42 Section 412.3 of the Code of Federal Regulations Patient History Date of Service: 05/29/21 Primary Care Provider: Out of town Reason for admission: Diverticulitis History of Present Illness: 61-year-old male with history of diabetes type 2, hypertension, hyperlipidemia presents emergency department for chills, lower abdominal pain for the last 24 hours. Patient was evaluated in the emergency department labs were significant for white blood cell count 13.9 with 10% bandemia glucose [address] scan demonstrated proximal sigmoid colonic diverticulitis also noted abnormal appearance of the stomach recommendation for endoscopy. Patient reports last colonoscopy was between 3 and 5 years ago and he did have a biopsy at that time, has never had endoscopy before. ED provider wishes to admit under observation for diverticulitis. Allergies Penicillins Allergy (Verified 10/26/16 18:19) Unknown Home Medications: Albuterol Sulfate [Proair Hfa] 8.5 gm IH TID PRN #1 hfa.aer.ad 10/27/16 Benzonatate [Tessalon Perle] 100 mg PO TID PRN #30 cap 10/27/16 Tramadol HCl [Ultram] 50 mg PO TID PRN #30 tablet 10/27/16 carvediloL [Coreg*] 3.125 mg PO BID 6AM 6PM #60 tab 10/27/16 predniSONE [Deltasone] 20 mg PO SEECOM #15 tab 10/27/16 Codeine/APAP [Tylenol W/Codeine #3 tab] 1 tab PO Q4HP PRN #30 tab 08/11/18 Sulfamethoxazole/Trimethoprim [Bactrim Ds Tablet] 1 each PO BID #12 tablet 08/11/18 - Past Medical/Surgical History Diabetic: No -: Hypertension -: Obesity -: Diabetes type 2 -: Hypertension -: Appendectomy -: Left inguinal hernia repair Psychosocial/ Personal History: The patient is , has 3 children. 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 moist/pink, EOMI, Sclerae nonicteric Neck: Supple, 2+ carotid pulse no bruit, No LAD, Without JVD or thyroid abnormality Respiratory: Clear to auscultation bilaterally, Normal air movement Cardiovascular: Regular rate/rhythm, Normal S1 S2 Gastrointestinal: Normal bowel sounds, Tenderness (Mild suprapubic tenderness) Musculoskeletal: No tenderness Integumentary: No rashes Neurological: Normal gait, Normal speech, Normal strength at 5/5 x4 extr, Normal tone, Normal affect Lymphatics: No axilla or inguinal lymphadenopathy - Studies Laboratory Data (last 24 hrs) 05/28/21 21:45: WBC 13.90 H, Hgb 14.5, Hct 43.6, Plt Count 145 L 05/28/21 21:45: Sodium 141, Potassium 3.9, BUN 14, Creatinine 1.00, Glucose 189 H, Total Bilirubin 0.5, AST 16, ALT 39, Alkaline Phosphatase 64, Lipase 132 Assessment and Plan - Plan Assessment: Abdominal pain, chills, leukocytosis/bandemia secondary to proximal sigmoid diverticulitis Incidental finding abnormal appearance of stomach on CT Diabetes type 2 with hyperglycemia Hypertension Hyperlipidemia Plan: Abdominal pain, chills, leukocytosis/bandemia secondary to proximal sigmoid diverticulitis: Continue with Levaquin/Flagyl as patient is penicillin allergic. Last colonoscopy 3 to 5 years ago, patient informed he will need to have repeat colonoscopy after discharge from hospital. Mild pain will start with clear liquid diet advance as tolerated. Incidental finding abnormal appearance of stomach on CT: Patient made aware of finding recommendation for outpatient endoscopy at discharge. Brother does have history of stomach cancer. Diabetes type 2 with hyperglycemia: ACH is Accu-Chek, sliding scale insulin. Hypertension: Continue home meds Hyperlipidemia: Continue home meds DVT PPX: Lovenox Code status: Full Discharge Plan: Home Plan to discharge in: 24 Hours - Advance Directives Does patient have a Living Will: No Does patient have a Durable POA for Healthcare: No - Code Status/Comfort Care Code Status Assessed: Yes (Full code) Critical Care: No Time Spent Managing Pts Care (In Minutes): 55
[2021-05-29] MEDS ORDERED: ONDANSETRON 4 MG/2 ML VIAL IV PRN (01:45)
[2021-05-29 02:11] VITALS: BMI 39.9
[2021-05-29] MEDS: NA CHLORIDE 0.9% 1,000 ML IV SCH ×3 (02:46→21:57)
[2021-05-29 03:45] LABS: Urine Appearance CLEAR (Clear); Urine Bilirubin NEGATIVE (Negative); Urine Blood TRACE (Negative); Urine Color YELLOW (Yellow); Urine Glucose NEGATIVE (Negative); Urine Protein NEGATIVE (Negative); Urine Specific Gravity >=1.030 (1.005-1.030); Urine Urobilinogen 0.2 mg/dL (0.2-1.0)
[2021-05-29 03:50] LABS: Urine Microscopic Reflex ORDER UMIC
[2021-05-29 04:50] LABS: Urine Bacteria <20 /HPF (NONE SEEN); Urine Urothelial Cells <5 /HPF (NONE SEEN)
--- NOTE | 2021-05-29 06:08 | P.PN ---
Subjective Date of Service: 05/29/21 Primary Care Provider: Out of town Chief Complaint: Diverticulitis Subjective: Improving Physical Examination - Vital Signs Temperature: 98.1 F Blood Pressure: 112/53 Pulse: 75 Respirations: 20 Pulse Ox (%): 97 - Studies Laboratory Data (last 24 hrs) 05/28/21 21:45: WBC 13.90 H, Hgb 14.5, Hct 43.6, Plt Count 145 L 05/28/21 21:45: Sodium 141, Potassium 3.9, BUN 14, Creatinine 1.00, Glucose 189 H, Total Bilirubin 0.5, AST 16, ALT 39, Alkaline Phosphatase 64, Lipase 132 Assessment & Plan Discharge Plan: Home Plan to discharge in: 24 Hours Physician Review Additional Text: COVID: Negative CT scan: COMPARISON: None. TECHNIQUE: CT ABDOMEN PELVIS WITH IV CONTRAST on 05/28/2021 10:15 PM CDT This exam was performed according to our departmental dose-optimization program, which includes automated exposure control, adjustment of the mA and/or kV according to patient size and/or use of iterative reconstruction technique. FINDINGS: Lower lungs are clear. Abdomen: The liver is normal in appearance. There is no biliary dilatation. Gallbladder is normal in appearance. There is asymmetric thickening of the greater curvature of the stomach. The pancreas and spleen are normal in appearance. The adrenal glands and kidneys are unremarkable. Abdominal aorta is normal in course and caliber without aneurysm. There is no free air. There is no retroperitoneal adenopathy. Pelvis: There is mild distal colonic diverticulosis. There is faint inflammation surrounding the proximal sigmoid colon. Urinary bladder is unremarkable. There is no free fluid. The appendix is not seen. Skeleton: There are no acute osseous findings. No suspicious bony lesions. IMPRESSION: Suspect mild proximal sigmoid colonic diverticulitis. Abnormal appearance of the stomach. Consider endoscopy as clinically indicated. Physical exam: General: Alert, In no apparent distress, Oriented x3 HEENT: Atraumatic, PERRLA, Mucous membr. moist/pink, EOMI, Sclerae nonicteric Neck: Supple, 2+ carotid pulse no bruit, No LAD, Without JVD or thyroid abnormality Respiratory: Clear to auscultation bilaterally, Normal air movement Cardiovascular: Regular rate/rhythm, Normal S1 S2 Gastrointestinal: Normal bowel sounds, Tenderness (Mild suprapubic tenderness) Musculoskeletal: No tenderness Integumentary: No rashes Neurological: Normal gait, Normal speech, Normal strength at 5/5 x4 extr, Normal tone, Normal affect Lymphatics: No axilla or inguinal lymphadenopathy Impression: Abdominal pain, chills, leukocytosis/bandemia secondary to proximal sigmoid diverticulitis Incidental finding abnormal appearance of stomach on CT Diabetes type 2 with hyperglycemia Hypertension Hyperlipidemia Plan: Abdominal pain, chills, leukocytosis/bandemia secondary to proximal sigmoid diverticulitis: Patient doing better. Will advance diet to soft. Continue to provide medication for pain. Will monitor closely. Continue Levaquin and Flagyl. Patient reports colonoscopy in the past without significant abnor mality. Encourage ambulation. Provide incentive spirometer. Likely home in the next 24 hours. Incidental finding abnormal appearance of stomach on CT: Patient made aware of finding recommendation for outpatient endoscopy at discharge. Brother does have history of stomach cancer. Diabetes type 2 with hyperglycemia: Continue Accu-Cheks and sliding scale. Hemoglobin A1c 6.1. Hypertension: Restart carvedilol. Will monitor and adjust appropriately. Hyperlipidemia: Restart Crestor DVT PPX: Lovenox Code status: Full Discharge Plan: Home at discharge Time Spent Managing Pts Care (In Minutes): 55
[2021-05-29 06:19] LABS: Absolute Lymphocytes (CBC) 0.5 K/uL (0.7-4.9); Basophils % 0.3 % (0-1.3); Hematocrit 40.3 % (39.6-49.0); Lymphocytes % 4.1 % (15.3-44.8); MPV 10.8 fL (7.6-11.3); RBC Red Blood Cell Count 4.62 M/uL (4.33-5.43)
[2021-05-29 06:45] LABS: Albumin 3.3 g/dL (3.4-5.0); Bilirubin Total 0.7 mg/dL (0.2-1.0); Magnesium 1.8 mg/dL (1.8-2.4); Phosphorus 2.2 mg/dL (2.5-4.9); Potassium 4.4 mmol/L (3.5-5.1)
[2021-05-29] MEDS: INSULIN -REGULAR HUMAN 50 UNIT/0.5 ML ML SQ SCH ×4 (07:30→21:00)
[2021-05-29] MEDS: METRONIDAZOLE 500mg IVPB 500 MG/100 ML BAG IV SCH ×2 (08:59→16:23)
[2021-05-29] MEDS: Levofloxacin500mg IV 500 MG/100 ML BAG IV SCH (08:59)
[2021-05-29] MEDS: ENOXAPARIN 40 MG/0.4 ML SQ SCH (09:00)
[2021-05-29 09:13] VITALS: O2SAT 94
--- NOTE | 2021-05-29 12:44 | RAD REPORT ---
EXAM DESCRIPTION: CT - Abdomen Pelvis W Contrast - 05/29/2021 6:30 am COMPARISON: None. TECHNIQUE: CT ABDOMEN PELVIS WITH IV CONTRAST on 05/28/2021 10:15 PM CDT This exam was performed according to our departmental dose-optimization program, which includes autom ated exposure control, adjustment of the mA and/or kV according to patient size and/or use of iterati ve reconstruction technique. FINDINGS: Lower lungs are clear. Abdomen: The liver is normal in appearance. There is no biliary dilatation. Gallbladder is normal in appearance. There is asymmetric thickening of the greater curvature of the stomach. The pancreas and spleen are normal in appearance. The adrenal glands and kidneys are unremarkable. Abdominal aorta is normal in course and caliber without aneurysm. There is no free air. There is no r etroperitoneal adenopathy. Pelvis: There is mild distal colonic diverticulosis. There is faint inflammation surrounding the prox imal sigmoid colon. Urinary bladder is unremarkable. There is no free fluid. The appendix is not seen . Skeleton: There are no acute osseous findings. No suspicious bony lesions. IMPRESSION: Suspect mild proximal sigmoid colonic diverticulitis. Abnormal appearance of the stomach. Consider endoscopy as clinically indicated. Electronically signed by: Jose Hamlin MD 05/28/2021 11:18 PM CDT Due to temporary technical issues with the PACS/Fluency reporting system, reports are being signed by the in house radiologists without review as a courtesy to insure prompt reporting. The interpreting radiologist is fully responsible for the content of the report.
[2021-05-29] MEDS: MORPHINE 2 MG/ML SYR IV PRN (12:48)
[2021-05-29] MEDS ORDERED: MAGNESIUM SULFATE 1 gm IVPB 1 GM/100 ML BAG IV ONE (14:00)
[2021-05-29] MEDS ORDERED: TRAMADOL HCL 50 MG TAB PO PRN (14:06)
[2021-05-29] MEDS ORDERED: HYDROCODONE/APAP 7.5/325 MG TAB PO PRN (14:06)
[2021-05-29] MEDS ORDERED: ACETAMINOPHEN 500 MG TAB PO PRN (16:17)
[2021-05-29] MEDS ORDERED: ACETAMINOPHEN 500 MG TAB ONE (16:44)
[2021-05-29] MEDS: carvediloL 3.125 MG TAB PO SCH (17:28)
[2021-05-29] MEDS ORDERED: ROSUVASTATIN 10 MG TAB PO SCH (21:00)
[2021-05-29] MEDS: FAMOTIDINE 20 MG TAB PO SCH (21:53)
[2021-05-30] MEDS: METRONIDAZOLE 500mg IVPB 500 MG/100 ML BAG IV SCH ×2 (00:54→09:00)
[2021-05-30 01:25] VITALS: TEMP 98.6
[2021-05-30] MEDS: MORPHINE 2 MG/ML SYR IV PRN (04:49)
[2021-05-30] MEDS: carvediloL 3.125 MG TAB PO SCH (05:32)
[2021-05-30 05:40] VITALS: BP 162/82
--- NOTE | 2021-05-30 06:00 | P.PN ---
Subjective Date of Service: 05/30/21 Primary Care Provider: Out of town Chief Complaint: Diverticulitis Subjective: Improving, Doing well Physical Examination - Vital Signs Temperature: 98.6 F Blood Pressure: 162/82 Pulse: 78 Respirations: 19 Pulse Ox (%): 100 Assessment & Plan Discharge Plan: Home Plan to discharge in: 24 Hours Physician Review Additional Text: COVID: Negative CT scan: COMPARISON: None. TECHNIQUE: CT ABDOMEN PELVIS WITH IV CONTRAST on 05/28/2021 10:15 PM CDT This exam was performed according to our departmental dose-optimization program, which includes automated exposure control, adjustment of the mA and/or kV according to patient size and/or use of iterative reconstruction technique. FINDINGS: Lower lungs are clear. Abdomen: The liver is normal in appearance. There is no biliary dilatation. Gallbladder is normal in appearance. There is asymmetric thickening of the greater curvature of the stomach. The pancreas and spleen are normal in appearance. The adrenal glands and kidneys are unremarkable. Abdominal aorta is normal in course and caliber without aneurysm. There is no free air. There is no retroperitoneal adenopathy. Pelvis: There is mild distal colonic diverticulosis. There is faint inflammation surrounding the proximal sigmoid colon. Urinary bladder is unremarkable. There is no free fluid. The appendix is not seen. Skeleton: There are no acute osseous findings. No suspicious bony lesions. IMPRESSION: Suspect mild proximal sigmoid colonic diverticulitis. Abnormal appearance of the stomach. Consider endoscopy as clinically indicated. Physical exam: General: Alert, In no apparent distress, Oriented x3 HEENT: Atraumatic, PERRLA, Mucous membr. moist/pink, EOMI, Sclerae nonicteric Neck: Supple, 2+ carotid pulse no bruit, No LAD, Without JVD or thyroid abnormality Respiratory: Clear to auscultation bilaterally, Normal air movement Cardiovascular: Regular rate/rhythm, Normal S1 S2 Gastrointestinal: Normal bowel sounds, Tenderness (Mild suprapubic tenderness) Musculoskeletal: No tenderness Integumentary: No rashes Neurological: Normal gait, Normal speech, Normal strength at 5/5 x4 extr, Normal tone, Normal affect Lymphatics: No axilla or inguinal lymphadenopathy Impression: Abdominal pain, chills, leukocytosis/bandemia secondary to proximal sigmoid diverticulitis Incidental finding abnormal appearance of stomach on CT Diabetes type 2 with hyperglycemia Hypertension Hyperlipidemia Plan: Abdominal pain, chills, leukocytosis/bandemia secondary to proximal sigmoid diverticulitis: Patient doing at this time. Patient tolerating diet. Patient ambulating and doing well. No significant pain noted. We will plan for discharge today. Patient will continue with Levaquin and Flagyl at discharge. Patient will need close follow-up with PCP and GI evaluation as an outpatient for repeat colonoscopy in 4 to 6 weeks. Incidental finding abnormal appearance of stomach on CT: Patient made aware of finding recommendation for outpatient endoscopy at discharge. Brother does have history of stomach cancer. Diabetes type 2 with hyperglycemia: Continue Accu-Cheks and sliding scale. Hemoglobin A1c 6.1. Hypertension: Continue with carvedilol. Will monitor and adjust appropriately. Hyperlipidemia: Continue Crestor DVT PPX: Lovenox Code status: Full Discharge Plan: Home at discharge Time Spent Managing Pts Care (In Minutes): 55
[2021-05-30 06:12] LABS: Absolute Lymphocytes (CBC) 0.8 K/uL (0.7-4.9); Basophils % 0.6 % (0-1.3); Hematocrit 40.5 % (39.6-49.0); MPV 10.5 fL (7.6-11.3); RBC Red Blood Cell Count 4.64 M/uL (4.33-5.43)
[2021-05-30 06:43] LABS: ALT/SGPT 56 U/L (12-78); AST/SGOT 25 U/L (15-37); Albumin 3.2 g/dL (3.4-5.0); Alkaline Phosphatase 57 U/L (45-117); BUN Blood Urea Nitrogen 9 mg/dL (7-18); Bicarbonate 28 mmol/L (21-32); Bilirubin Total 0.7 mg/dL (0.2-1.0); Glucose Level 129 mg/dL (74-106); Magnesium 2.1 mg/dL (1.8-2.4); Phosphorus 1.4 mg/dL (2.5-4.9); Potassium 3.6 mmol/L (3.5-5.1); Protein, Total 7.1 g/dL (6.4-8.2); Sodium Level 139 mmol/L (136-145)
[2021-05-30] MEDS: INSULIN -REGULAR HUMAN 50 UNIT/0.5 ML ML SQ SCH (07:30)
[2021-05-30] MEDS: NA CHLORIDE 0.9% 1,000 ML IV SCH (07:45)
--- NOTE | 2021-05-30 08:48 | P.DS ---
Admission Date: 05/29/21 Discharge Date: 05/30/21 Primary Care Provider: Dr. Morales(Rembert) Disposition: ROUTINE DISCHARGE Discharge Condition: GOOD Reason for Admission: Diverticulitis Consultations: none Procedures: COVID: Negative CT scan: COMPARISON: None. TECHNIQUE: CT ABDOMEN PELVIS WITH IV CONTRAST on 05/28/2021 10:15 PM CDT This exam was performed according to our departmental dose-optimization program, which includes automated exposure control, adjustment of the mA and/or kV according to patient size and/or use of iterative reconstruction technique. FINDINGS: Lower lungs are clear. Abdomen: The liver is normal in appearance. There is no biliary dilatation. Gallbladder is normal in appearance. There is asymmetric thickening of the greater curvature of the stomach. The pancreas and spleen are normal in appearance. The adrenal glands and kidneys are unremarkable. Abdominal aorta is normal in course and caliber without aneurysm. There is no free air. There is no retroperitoneal adenopathy. Pelvis: There is mild distal colonic diverticulosis. There is faint inflammation surrounding the proximal sigmoid colon. Urinary bladder is unremarkable. There is no free fluid. The appendix is not seen. Skeleton: There are no acute osseous findings. No suspicious bony lesions. IMPRESSION: Suspect mild proximal sigmoid colonic diverticulitis. Abnormal appearance of the stomach. Consider endoscopy as clinically indicated. Medical Problem List: Abdominal pain, chills, leukocytosis/bandemia secondary to proximal sigmoid diverticulitis CT showing asymmetric thickening of the greater curvature likely GERD Diabetes type 2 with hyperglycemia Hypertension Hyperlipidemia Obesity, BMI 40 Brief History of Present Illness: 61-year-old male with history of diabetes type 2, hypertension, hyperlipidemia presents emergency department for chills, lower abdominal pain for the last 24 hours. Patient was evaluated in the emergency department labs were significant for white blood cell count 13.9 with 10% bandemia glucose [address] scan demonstrated proximal sigmoid colonic diverticulitis also noted abnormal appearance of the stomach recommendation for endoscopy. Patient reports last colonoscopy was between 3 and 5 years ago and he did have a biopsy at that time, has never had endoscopy before. Patient was admitted for treatment. Hospital Course: Patient presented with abdominal pain secondary to proximal sigmoid diverticulitis. This was identified on CT scan. Patient required hospitalization. Patient did well during the course of his stay. His condition improved. White count remained normal. Blood culture 1 out of 4 positive likely contaminant. Patient tolerating his diet. Patient ambulating well. At discharge the patient will continue with Cipro 500 mg 1 pill twice daily and Flagyl 500 mg 3 times a day for 10 days. Education on diverticulitis provided. Recommend follow-up with PCP within 1 week to follow-up hospitalization. Patient will need to follow-up with GI in 4 to 6 weeks to follow-up this hospitalization and have a colonoscopy to further evaluate. Patient reports prior colonoscopy in the past is unremarkable. CT scan also showed some asymmetric thickening to the greater curvature of the stomach. Suspect underlying GERD. At discharge will recommend Pepcid 20 mg 1 pill twice daily. Recommend follow-up with GI as an outpatient for EGD for further evaluation. This can be done with the help of his PCP. Patient with diabetes mellitus type 2. Hemoglobin A1c 6.1. Overall stable. At discharge patient will continue with Metformin 750 mg daily. Recommend to maintain blood sugar less than 140 fasting and less than 200 after meals. Further adjustment can be done by his PCP. Recommend to recheck hemoglobin A1c every 3 to 6 months to monitor his progress. Patient with hypertension. Overall stable. At discharge patient will continue with his medication including carvedilol 12.5 mg daily and losartan 100 mg daily. Recommend to maintain blood pressure less than 130/80. If blood pressure remains above 140/90 further adjustment in medication may be required. This can be done with the help of his PCP. Patient with hyperlipidemia. At discharge patient will continue with Crestor 5 mg daily. Lifestyle modification education provided. BMI 40.0. Vital Signs/Physical Exam: Temp Pulse Resp BP Pulse Ox 98.6 F 78 19 162/82 H 100 05/30/21 08:47 05/30/21 08:47 05/30/21 08:47 05/30/21 08:47 05/30/21 08:47 General: Alert, In no apparent distress, Oriented x3, Cooperative HEENT: Atraumatic Neck: Supple Respiratory: Clear to auscultation bilaterally, Normal air movement Cardiovascular: Normal pulses, Regular rate/rhythm Gastrointestinal: Normal bowel sounds, No ascites, No tenderness, No masses, No rebound, No guarding Musculoskeletal: No erythema, No tenderness, No warmth Integumentary: No tenderness/swelling, No erythema, No warmth Neurological: Normal speech, Normal strength at 5/5 x4 extr, Normal tone Laboratory Data at Discharge: WBC 6.30 K/uL (4.3-10.9) D 05/30/21 05:42 Hgb 13.8 g/dL (13.6-17.9) 05/30/21 05:42 Hct 40.5 % (39.6-49.0) 05/30/21 05:42 Plt Count 129 K/uL (152-406) L 05/30/21 05:42 Sodium 139 mmol/L (136-145) 05/30/21 05:42 Potassium 3.6 mmol/L (3.5-5.1) 05/30/21 05:42 BUN 9 mg/dL (7-18) 05/30/21 05:42 Creatinine 0.78 mg/dL (0.55-1.3) 05/30/21 05:42 Glucose 129 mg/dL (74-106) H 05/30/21 05:42 Phosphorus 1.4 mg/dL (2.5-4.9) L 05/30/21 05:42 Magnesium 2.1 mg/dL (1.8-2.4) 05/30/21 05:42 Total Bilirubin 0.7 mg/dL (0.2-1.0) 05/30/21 05:42 AST 25 U/L (15-37) 05/30/21 05:42 ALT 56 U/L (12-78) 05/30/21 05:42 Alkaline Phosphatase 57 U/L (45-117) 05/30/21 05:42 Lipase 132 U/L (73-393) 05/28/21 21:45 Home Medications: Aspirin [Aspirin EC 81 MG] 2 tab PO DAILY 05/29/21 Carvedilol [Coreg] 12.5 mg PO DAILY 05/29/21 Losartan Potassium 100 mg PO DAILY 05/29/21 Metformin HCl [Metformin HCl ER] 750 mg PO DAILY 05/29/21 Rosuvastatin Calcium 5 mg PO DAILY 05/29/21 Ciprofloxacin HCl [Cipro 500 MG Tablet] 500 mg PO BID #20 tab 05/30/21 Famotidine [Pepcid] 20 mg PO BID #60 tab 05/30/21 Tramadol HCl [Ultram] 50 mg PO BID PRN #5 tablet 05/30/21 metroNIDAZOLE [Flagyl] 500 mg PO Q8H #30 tablet 05/30/21 New Medications: Ciprofloxacin HCl [Cipro 500 MG Tablet] 500 mg PO BID #20 tab metroNIDAZOLE [Flagyl] 500 mg PO Q8H #30 tablet Famotidine [Pepcid] 20 mg PO BID #60 tab Tramadol HCl [Ultram] 50 mg PO BID PRN #5 tablet PRN Reason: Pain Scale 5-7 (Moderate) Physician Discharge Instructions: Patient presented with abdominal pain secondary to proximal sigmoid diverticulitis. This was identified on CT scan. Patient required hospitalization. Patient did well during the course of his stay. His condition improved. White count remained normal. Blood culture 1 out of 4 positive likely contaminant. Patient tolerating his diet. Patient ambulating well. At discharge the patient will continue with Cipro 500 mg 1 pill twice daily and Flagyl 500 mg 3 times a day for 10 days. Education on diverticulitis provided. Recommend follow-up with PCP within 1 week to follow-up hospitalization. Patient will need to follow-up with GI in 4 to 6 weeks to follow-up this hospitalization and have a colonoscopy to further evaluate. Patient reports prior colonoscopy in the past is unremarkable. CT scan also showed some asymmetric thickening to the greater curvature of the stomach. Suspect underlying GERD. At discharge will recommend Pepcid 20 mg 1 pill twice daily. Recommend follow-up with GI as an outpatient for EGD for further evaluation. This can be done with the help of his PCP. Patient with diabetes mellitus type 2. Hemoglobin A1c 6.1. Overall stable. At discharge patient will continue with Metformin 750 mg daily. Recommend to maintain blood sugar less than 140 fasting and less than 200 after meals. Further adjustment can be done by his PCP. Recommend to recheck hemoglobin A1c every 3 to 6 months to monitor his progress. Patient with hypertension. Overall stable. At discharge patient will continue with his medication including carvedilol 12.5 mg daily and losartan 100 mg daily. Recommend to maintain blood pressure less than 130/80. If blood pressure remains above 140/90 further adjustment in medication may be required. This can be done with the help of his PCP. Patient with hyperlipidemia. At discharge patient will continue with Crestor 5 mg daily. Lifestyle modification education provided. BMI 40.0. Diet: Soft ADA Activity: Ad abdi Followup: NONE,NONE [Primary Care Provider] - Time spent managing pt's care (in minutes): 55
[2021-05-30] MEDS: Levofloxacin500mg IV 500 MG/100 ML BAG IV SCH (09:00)
[2021-05-30] MEDS: FAMOTIDINE 20 MG TAB PO SCH (09:00)
[2021-05-30] MEDS ORDERED: LOSARTAN POTASSIUM 50 MG TABLET PO SCH (09:00)
[2021-05-30] MEDS ORDERED: ASPIRIN EC 81 MG TAB PO SCH (09:00)
[2021-05-30] MEDS: ENOXAPARIN 40 MG/0.4 ML SQ SCH (09:00)
[2021-06-04 12:52] LABS: Urine Blood 2+ (Negative); Urine Glucose Negative (Negative); Urine Protein Negative (Negative)
== END 2021-05-30 09:59 | disposition home or self-care (01) ==
LOC: ER 20:30 → ERHOLD 05-29 00:42 → 2ND 05-29 01:37
PROVIDERS: ADMIT Family Medicine; ATTEND Family Medicine
DX: K57.32 Diverticulitis of large intestine without perforation or abscess without bleeding (principal); E11.65 Type 2 diabetes mellitus with hyperglycemia; I10 Essential (primary) hypertension; E78.5 Hyperlipidemia, unspecified; E66.9 Obesity, unspecified; Z68.41 Body mass index [BMI] 40.0-44.9, adult; R93.3 Abnormal findings on diagnostic imaging of other parts of digestive tract; Z79.82 Long term (current) use of aspirin; Z88.0 Allergy status to penicillin; Z20.822 Contact with and (suspected) exposure to COVID-19; Z82.49 Family history of ischemic heart disease and other diseases of the circulatory system; Z80.9 Family history of malignant neoplasm, unspecified
CPT/HCPCS: 96365; 96367; 96361; 87040 ×2; 85025 ×3; 80048; 36415 ×2; 83735 ×2; 87205; 84100 ×2; 82947 ×5; 80076; 83605; 83036; 83690; 80053 ×2; 84145; 0240U; 74177; 96375; 99285; Q9967; J1650; J3475; J2270 ×2; J7030 ×4; J2405; G0378 ×3; 81003; 81015

== ENCOUNTER 2022-02-02 11:27 | Inpatient (IN) | payer BC ==
--- OUTSIDE RECORDS SUMMARY | 2022-02-02 11:33 | XMS REPORT | Continuity of Care Document ---
:1960 Author Organization [facility] t Address [address] [place] [address] Care Team Providers Name Role Phone Andrew Primary Care Physician Unavailable Gm VARMA Attending Clinician GM Attending Clinician Unavailable Mai Joe Attending Clinician Doctor Unassigned, Name Attending Clinician Unavailable Yael Otoole DO Attending Clinician Rizwana VARMA Attending Clinician IVETH WASHBURN Attending Clinician Unavailable Rizwana VARMA Admitting Clinician Payers Payer Name Policy Type Policy Number Effective Date Expiration Date S diony [facility] [id number] 00:00:00 Problems Condition Condition Condition Status Onset Resolution Last Treating Co mments Source Name Details Category Date Date Treatment Clinician Date Pneumonia Pneumonia Disease Active Uni vers due to due to 05-02 ity of COVID-19 COVID-19 00:00: [place] virus virus 00 Medical Branch Elevated Elevated Disease Active Unive rs troponin troponin 05-02 ity of 00:00: [place] 00 Medical Branch Morbid Morbid Disease Active 2019- Univers obesity obesity 05-02 [place] of with body with body 00:[place] mass index mass index 00 Me dical of of Branch 40.0-49.9 40.0-49.9 Pneumonia Pneumonia Disease Active Uni vers due to due to 05-02 ity of COVID-19 COVID-19 00:00: [place] virus virus 00 Medical Branch Essential Essential Disease Active Uni vers hypertensi hypertensi 05-02 it y of on on 00:00: [place] [facility] Other Other Disease Active Univers hyperlipid hyperlipid 05-02 it y of emia emia 00:00: [place] [facility] Type 2 Type 2 Disease Active Univers diabetes diabetes 05-02 ity of mellitus mellitus 00:00: [place] without without 00 Medical complicati complicati Br anch on, on, without without long-term long-term current current use of use of insulin insulin Hypertensi Hypertensi Disease Active U nivers ve urgency ve urgency 05-02 it y of 00:00: [place] 00 Medical Branch History of History of Problem Resolve [place] hypertensi hypertensi d Ph ysici on on ans Rupture of Rupture of Problem Active U T left left Physici proximal proximal ans biceps biceps tendon, tendon, initial initial encounter encounter Tear of Tear of Problem Active [facility] left left Physici supraspina supraspina an s tus tus tendon, tendon, initial initial encounter encounter Diabetic Problem Active 2019-05-31 Mem oria autonomic 02:45:08 l neuropathy 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 Active Problem 05/31/2019 [facility] Benign Problem Active 2019-05-31 Memor ia essential 02:45:08 l hypertensi Benign Herm edwar on essential hypertensi on Active Problem 9 [facility] Encounter Problem Active 2019-05-31 Me moria for 02:45:08 l immunizati Jon n on Encounter for immunizati on Active Problem 9 [facility] Positive Problem Active 2019-05-31 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 Active Problem 05/31/2019 [facility] Vitamin D Problem Active 2019-05-31 Me moria deficiency 02:45:08 l Vitamin [place] D deficiency Active Problem 05/31/2019 [facility] Prepatella Problem Active 2019-05-31 M emoria r 02:45:08 l bursitis, [place] right knee Prepatella r bursitis, right knee Active Problem 05/31/2019 [facility] Abnormal Problem Active 2019-05-31 Mem oria immunologi 02:45:08 l ced Abnormal Jon n finding in immunologi serum, ced unspecifie finding in d serum, unspecifie d Active Problem 05/31/2019 [facility] Arthralgia Problem Active 2019-05-31 M emoria of 02:45:08 l multiple [place] joints Arthralgia of multiple joints Active Problem 05/31/2019 [facility] Allergies, Adverse Reactions, Alerts Allergy Allergy Status Severity Reaction(s) Onset Inactive Treating Comm ents Source Name Type Date Date Clinician Penicill Propensi Active Anaphylaxis U nivers ins ty to 05-02 ity of adverse 00:00: [place] reaction 00 Medical s Branch PENICILL Drug Active Anaphylaxis Uni vers INS Class 05-02 ity of 00:00: [place] 00 Medical Branch Penicill Penicill Active rash Memori a in in -12 l 00:00: [place] 00 NO KNOWN Drug Active Univers ALLERGIE Class ity of S [facility] Penicill drug Active [facility] ins allergy Physici ans Family History Family Member Diagnosis Comments Start Date Stop Date Source Brother Family history of malignant [facility] neoplasm Mother Family history of [facility] Phys icians hypertension Social History Social Habit Start Date Stop Date Quantity Comments Source Exposure to Not sure [facility] SARS-CoV-2 [facility] (event) [place] Tobacco use and 2021-01-28 2021-01-28 Never used Universit y of exposure 00:00:00 00:00:00 [facility] Alcohol intake 2021-01-28 2021-01-28 Current drinker Unive rsity of 00:00:00 00:00:00 of alcohol [facility] (finding) Branch Social History 2016-10-31 2016-10-31 [facility] 21:20:42 21:20:42 Sex [birth year] At [birth year] Universit y of 00:00:00 00:00:00 [facility] Smoking Status Start Date Stop Date Source Never smoker [facility] Medications Ordered Filled Start Stop Current Ordering Indication Dosage Frequency Signature Comments Components Source Medication Medication Date Date Medication? Clinician (SIG) Name Name losartan Yes [id number] 100mg Take 1 Un [place] 100 mg 7-21 tablet by ity of tablet 00:00: mouth [place] 00 daily. Medical Branch losartan Yes [id number] 100mg Take 1 Un debo 100 mg 7-21 tablet by ity of tablet 00:00: mouth [place] 00 daily. Medical Branch losartan Yes [id number] 100mg Take 1 Un debo 100 mg 7-21 tablet by ity of tablet 00:00: mouth [place] 00 daily. Medical Branch losartan Yes [id number] 100mg Take 1 Un debo 100 mg 7-21 tablet by ity of tablet 00:00: mouth [place] 00 daily. Medical Branch losartan Yes [id number] 100mg Take 1 Un debo 100 mg 7-21 tablet by ity of tablet 00:00: mouth [place] 00 daily. Medical Branch magnesium 2020- No 300mL 300 mL, Uni vers citrate 01-28 Oral, ity of solution 23:00: 10:59 ONCE, 1 [place] 300 mL 00 :00 dose, Mon Medical 01/28/21 at Branch 1800, LILLY magnesium 2020- No 300mL 300 mL, Uni vers citrate 01-28 Oral, ity of solution 23:00: 21:46 ONCE, 1 [place] 300 mL 00 :00 dose, Mon Medical 01/28/21 at Branch 1800, LILLY iopamidol 2020- No [id number] 120mL 120 mL, Univers (ISOVUE 01-28 Intravenou ity o f 370-500 mL) 21:45: 20:38 s, ONCE, 1 [place] injection 00 :00 dose, Mon Medic al 120 mL 01/28/21 at Branch 1645, Routine amLODIPine Yes [id number] 10mg Take 1 U nivers 10 mg 4-28 tablet by ity of tablet 00:00: mouth [place] 00 daily. Medical Branch carvediloL Yes [id number] 12.5mg Take 1 Univers 12.5 mg 4-28 tablet by ity of tablet 00:00: mouth 2 [place] 00 (two) Medical times [place] daily with meals. losartan Yes [id number] 100mg Take 1 Un debo 100 mg 4-28 tablet by ity of tablet 00:00: mouth [place] 00 daily. Medical Branch amLODIPine Yes [id number] 10mg Take 1 U nivers 10 mg 4-28 tablet by ity of tablet 00:00: mouth [place] 00 daily. Medical Branch carvediloL 0 Yes [id number] 12.5mg Take 1 Univers 12.5 mg 4-28 tablet by ity of tablet 00:00: mouth 2 (two) Medical times Branch daily with meals. losartan 2020-0 Yes [id number] 100mg Take 1 Un debo 100 mg 4-28 tablet by ity of tablet 00:00: mouth [place] 00 daily. Medical Branch amLODIPine 0 Yes [id number] 10mg Take 1 U nivers 10 mg 4-28 tablet by ity of tablet 00:00: mouth [place] 00 daily. Medical Branch carvediloL Yes [id number] 12.5mg Take 1 Univers 12.5 mg 4-28 tablet by ity of tablet 00:00: mouth 2 (two) Medical times Branch daily with meals. losartan 0 Yes [id number] 100mg Take 1 Un debo 100 mg 4-28 tablet by ity of tablet 00:00: mouth 00 daily. Medical Branch amLODIPine Yes [id number] 10mg Take 1 U nivers 10 mg 4-28 tablet by ity of tablet 00:00: mouth 00 daily. Medical Branch carvediloL 0 Yes [id number] 12.5mg Take 1 Univers 12.5 mg 4-28 tablet by ity of tablet 00:00: mouth (two) Medical times Branch daily with meals. losartan 0 Yes [id number] 100mg Take 1 Un debo 100 mg 4-28 tablet by ity of tablet 00:00: mouth 00 daily. Medical Branch amLODIPine 0 Yes [id number] 10mg Take 1 U nivers 10 mg 4-28 tablet by ity of tablet 00:00: mouth [place] 00 daily. Medical Branch carvediloL 0 Yes [id number] 12.5mg Take 1 Univers 12.5 mg 4-28 tablet by ity of tablet 00:00: mouth 2 (two) Medical times Branch daily with meals. losartan 0 Yes [id number] 100mg Take 1 Un debo 100 mg 4-28 tablet by ity of tablet 00:00: mouth [place] 00 daily. Medical Branch amLODIPine 2020-0 Yes [id number] 10mg Take 1 U nivers 10 mg 4-28 tablet by ity of tablet 00:00: mouth [place] 00 daily. Medical Branch carvediloL 2020-0 Yes [id number] 12.5mg Take 1 Univers 12.5 mg 4-28 tablet by ity of tablet 00:00: mouth 2 (two) Medical times Branch daily with meals. amLODIPine 0 Yes [id number] 10mg Take 1 U nivers 10 mg 4-28 tablet by ity of tablet 00:00: mouth [place] 00 daily. Medical Branch carvediloL 0 Yes [id number] 12.5mg Take 1 Univers 12.5 mg 4-28 tablet by ity of tablet 00:00: mouth 2 00 (two) Medical times Branch daily with meals. amLODIPine 0 Yes [id number] 10mg Take 1 U nivers 10 mg 4-28 tablet by ity of tablet 00:00: mouth [place] 00 daily. Medical Branch carvediloL 0 Yes [id number] 12.5mg Take 1 Univers 12.5 mg 4-28 tablet by ity of tablet 00:00: mouth (two) Medical times Branch daily with meals. amLODIPine 0 Yes [id number] 10mg Take 1 U nivers 10 mg 4-28 tablet by ity of tablet 00:00: mouth 00 daily. Medical Branch carvediloL 0 Yes [id number] 12.5mg Take 1 Univers 12.5 mg 4-28 tablet by ity of tablet 00:00: mouth (two) Medical times Branch daily with meals. amLODIPine 0 Yes [id number] 10mg Take 1 U nivers 10 mg 4-28 tablet by ity of tablet 00:00: mouth [place] 00 daily. Medical Branch carvediloL 0 Yes [id number] 12.5mg Take 1 Univers 12.5 mg 4-28 tablet by ity of tablet 00:00: mouth 2 00 (two) Medical times Branch daily with meals. losartan 2020- No [id number] 100mg Take 1 U nivers 100 mg 4-28 07-21 tablet by ity of tablet 00:00: 00:00 mouth [place] 00 :00 daily. Medical Branch amLODIPine 0 Yes [id number] 10mg Take 1 U nivers 10 mg 1-05 tablet by ity of tablet 00:00: mouth [place] 00 daily. Medical Branch amLODIPine Yes [id number] 10mg Take 1 U nivers 10 mg 1-05 tablet by ity of tablet 00:00: mouth [place] 00 daily. Medical Branch amLODIPine 2020- No [id number] 10mg Take 1 Univers 10 mg 1-05 04-28 tablet by ity of tablet 00:00: 00:00 mouth [place] 00 :00 daily. Medical Branch amLODIPine 2020- No [id number] 10mg Take 1 Univers 10 mg 1-05 04-28 tablet by ity of tablet 00:00: 00:00 mouth [place] 00 :00 daily. Medical Branch carvediloL 2019-08- No 6.25mg Take 6.25 Univers 6.25 mg 0-05 10-05 mg by ity of tablet 19:17: 00:00 mouth 2 [place] 19 :00 (two) Medical times Branch daily with meals. carvediloL 2019-08- No 6.25mg Take 6.25 Univers 6.25 mg 0-05 10-05 mg by ity of tablet 19:17: 00:00 mouth 2 [place] 19 :00 (two) Medical times Branch daily with meals. carvediloL 2019-08 Yes [id number] 12.5mg Take 1 Univers 12.5 mg 0-05 tablet by ity of tablet 00:00: mouth 2 [place] 00 (two) Medical times Branch daily with meals. carvediloL 2019-08 Yes [id number] 12.5mg Take 1 Univers 12.5 mg 0-05 tablet by ity of tablet 00:00: mouth 2 [place] 00 (two) Medical times Branch daily with meals. carvediloL 2019-08 Yes [id number] 12.5mg Take 1 Univers 12.5 mg 0-05 tablet by ity of tablet 00:00: mouth 2 [place] 00 (two) Medical times Branch daily with meals. carvediloL 2019-08 Yes [id number] 12.5mg Take 1 Univers 12.5 mg 0-05 tablet by ity of tablet 00:00: mouth 2 [place] 00 (two) Medical times Branch daily with meals. carvediloL 2019-08 No [id number] 12.5mg Take 1 Univers 12.5 mg 0-05 04-28 tablet by ity of tablet 00:00: 00:00 mouth 2 [place] 00 :00 (two) Medical times Branch daily with meals. carvediloL 2019-08- No [id number] 12.5mg Take 1 Univers 12.5 mg 0-05 04-28 tablet by ity of tablet 00:00: 00:00 mouth 2 [place] 00 :00 (two) Medical times Branch daily with meals. AFLURIA QD 2020-0 Yes ADM 0.5ML Un debo 2019-,3YR 9-29 IM UTD ity of UP,,PF, 60 00:00: [place] mcg (15 mcg 00 Medical x 4)/0.5 mL Branch Syrg AFLURIA QD 2019-0 Yes ADM 0.5ML Un debo ,3YR 9-29 IM UTD ity of UP,,PF, 60 00:00: [place] mcg (15 mcg 00 Medical x 4)/0.5 mL Branch Syrg AFLURIA QD 2019-0 Yes ADM 0.5ML Un debo ,3YR 9-29 IM UTD ity of UP,,PF, 60 00:00: [place] mcg (15 mcg 00 Medical x 4)/0.5 mL Branch Syrg AFLURIA QD 2019-0 Yes ADM 0.5ML Un debo ,3YR 9-29 IM UTD ity of UP,,PF, 60 00:00: [place] mcg (15 mcg 00 Medical x 4)/0.5 mL Branch Syrg AFLURIA QD 2020-0 Yes ADM 0.5ML Un debo ,3YR 9-29 IM UTD ity of UP,,PF, 60 00:00: [place] mcg (15 mcg 00 Medical x 4)/0.5 mL Branch Syrg AFLURIA QD 2020-0 Yes ADM 0.5ML Un debo ,3YR 9-29 IM UTD ity of UP,,PF, 60 00:00: [place] mcg (15 mcg 00 Medical x 4)/0.5 mL Branch Syrg AFLURIA QD 2020-0 Yes ADM 0.5ML Un debo ,3YR 9-29 IM UTD ity of UP,,PF, 60 00:00: [place] mcg (15 mcg 00 Medical x 4)/0.5 mL Branch Syrg AFLURIA QD 2020-0 Yes ADM 0.5ML Un debo 2020-21,3YR 9-29 IM UTD ity of UP,,PF, 60 00:00: [place] mcg (15 mcg 00 Medical x 4)/0.5 mL Branch Syrg AFLURIA QD 2019-0 Yes ADM 0.5ML Un debo ,3YR 9-29 IM UTD ity of UP,,PF, 60 00:00: [place] mcg (15 mcg 00 Medical x 4)/0.5 mL Branch Syrg AFLURIA QD 2019-0 Yes ADM 0.5ML Un debo ,3YR 9-29 IM UTD ity of UP,,PF, 60 00:00: [place] mcg (15 mcg 00 Medical x 4)/0.5 mL Branch Syrg AFLURIA QD 2019-0 Yes ADM 0.5ML Un debo ,3YR 9-29 IM UTD ity of UP,,PF, 60 00:00: [place] mcg (15 mcg 00 Medical x 4)/0.5 mL Branch Syrg AFLURIA QD 2019-0 Yes ADM 0.5ML Un debo ,3YR 9-29 IM UTD ity of UP,,PF, 60 00:00: [place] mcg (15 mcg 00 Medical x 4)/0.5 mL Branch Syrg AFLURIA QD 2019-0 Yes ADM 0.5ML Un debo ,3YR 9-29 IM UTD ity of UP,,PF, 60 00:00: [place] mcg (15 mcg 00 Medical x 4)/0.5 mL Branch Syrg AFLURIA QD 2019-0 Yes ADM 0.5ML Un debo ,3YR 9-29 IM UTD ity of UP,,PF, 60 00:00: [place] mcg (15 mcg 00 Medical x 4)/0.5 mL Branch Syrg rosuvastati 2019-0 Yes TK 1 T PO U nivers n 5 mg 9-14 HS FOR ity of tablet 00:00: CHOLESTERO [place] 00 L Medical Branch metformin 2019-0 Yes TK 1 T PO Uni vers ER 750 mg 9-14 DINNER ity of 24 hr 00:00: WITH THE [place] tablet 00 RONDA MEAL Medical FOR Branch DIABETES rosuvastati 2019-0 Yes TK 1 T PO U nivers n 5 mg 9-14 HS FOR ity of tablet 00:00: CHOLESTERO [place] 00 L Medical Branch metformin 2020-0 Yes TK 1 T PO Uni vers ER 750 mg 9-14 DINNER ity of 24 hr 00:00: WITH THE [place] tablet 00 RONDA MEAL Medical FOR Branch DIABETES rosuvastati 2020-0 Yes TK 1 T PO U nivers n 5 mg 9-14 HS FOR ity of tablet 00:00: CHOLESTERO [place] [facility] metformin 2020-0 Yes TK 1 T PO Uni vers ER 750 mg 9-14 DINNER ity of 24 hr 00:00: WITH THE [place] tablet 00 RONDA MEAL Medical FOR Branch DIABETES rosuvastati 2020-0 Yes TK 1 T PO U nivers n 5 mg 9-14 HS FOR ity of tablet 00:00: CHOLESTERO [place] [facility] metformin 2020-0 Yes TK 1 T PO Uni vers ER 750 mg 9-14 DINNER ity of 24 hr 00:00: WITH THE [place] tablet RONDA MEAL Medical FOR Branch DIABETES rosuvastati 2020-0 Yes TK 1 T PO U nivers n 5 mg 9-14 HS FOR ity of tablet 00:00: CHOLESTERO [place] [facility] metformin 2020-0 Yes TK 1 T PO Uni vers ER 750 mg 9-14 DINNER ity of 24 hr 00:00: WITH THE [place] tablet 00 RONDA MEAL Medical FOR Branch DIABETES rosuvastati 2020-0 Yes TK 1 T PO U nivers n 5 mg 9-14 HS FOR ity of tablet 00:00: CHOLESTERO [place] 00 L Medical Branch metformin 2020-0 Yes TK 1 T PO Uni vers ER 750 mg 9-14 DINNER ity of 24 hr 00:00: WITH THE [place] tablet 00 RONDA MEAL Medical FOR Branch DIABETES rosuvastati 2020-0 Yes TK 1 T PO U nivers n 5 mg 9-14 HS FOR ity of tablet 00:00: CHOLESTERO [place] 00 Medical Branch metformin 2020-0 Yes TK 1 T PO Uni vers ER 750 mg 9-14 DINNER ity of 24 hr 00:00: WITH THE [place] tablet 00 RONDA MEAL Medical FOR Branch DIABETES rosuvastati 2020-0 Yes TK 1 T PO U nivers n 5 mg 9-14 HS FOR ity of tablet 00:00: CHOLESTERO [place] 00 L Medical Branch metformin 2020-0 Yes TK 1 T PO Uni vers ER 750 mg 9-14 DINNER ity of 24 hr 00:00: WITH THE [place] tablet 00 RONDA MEAL Medical FOR Branch DIABETES rosuvastati 2020-0 Yes TK 1 T PO U nivers n 5 mg 9-14 HS FOR ity of tablet 00:00: CHOLESTERO [place] 00 L Medical Branch metformin 2020-0 Yes TK 1 T PO Uni vers ER 750 mg 9-14 DINNER ity of 24 hr 00:00: WITH THE [place] tablet 00 RONDA MEAL Medical FOR Branch DIABETES rosuvastati 2020-0 Yes TK 1 T PO U nivers n 5 mg 9-14 HS FOR ity of tablet 00:00: CHOLESTERO [place] 00 L Medical Branch metformin 2020-0 Yes TK 1 T PO Uni vers ER 750 mg 9-14 DINNER ity of 24 hr 00:00: WITH THE [place] tablet 00 RONDA MEAL Medical FOR Branch DIABETES rosuvastati 2020-0 Yes TK 1 T PO U nivers n 5 mg 9-14 HS FOR ity of tablet 00:00: CHOLESTERO [place] 00 L Medical Branch metformin 2020-0 Yes TK 1 T PO Uni vers ER 750 mg 9-14 DINNER ity of 24 hr 00:00: WITH THE [place] tablet 00 RONDA MEAL Medical FOR Branch DIABETES rosuvastati 2020-0 Yes TK 1 T PO U nivers n 5 mg 9-14 HS FOR ity of tablet 00:00: CHOLESTERO [place] 00 L Medical Branch metformin 2020-0 Yes TK 1 T PO Uni vers ER 750 mg 9-14 DINNER ity of 24 hr 00:00: WITH THE [place] tablet 00 RONDA MEAL Medical FOR Branch DIABETES rosuvastati 2020-0 Yes TK 1 T PO U nivers n 5 mg 9-14 HS FOR ity of tablet 00:00: CHOLESTERO [place] 00 L Medical Branch metformin 2020-0 Yes TK 1 T PO Uni vers ER 750 mg 9-14 DINNER ity of 24 hr 00:00: WITH THE [place] tablet 00 RONDA MEAL Medical FOR Branch DIABETES rosuvastati 2020-0 Yes TK 1 T PO U nivers n 5 mg 9-14 HS FOR ity of tablet 00:00: CHOLESTERO [place] 00 L Medical Branch metformin 2020-0 Yes TK 1 T PO Uni vers ER 750 mg 9-14 DINNER ity of 24 hr 00:00: WITH THE [place] tablet 00 RONDA MEAL Medical FOR Branch DIABETES carvediloL 2020-0 Yes 6.25mg Take 6.25 Univers 6.25 mg 9-03 mg by ity of tablet 18:32: mouth 2 [place] 21 (two) Medical times [place] daily with meals. carvediloL 2020-0 Yes 6.25mg Take 6.25 Univers 6.25 mg 9-03 mg by ity of tablet 18:32: mouth 2 [place] 21 (two) Medical times [place] daily with meals. aspirin 2020-0 Yes 81mg 81 mg, Univers chewable 05-03 Oral, ity of tablet 81 14:00: DAILY, [place] mg 00 First dose Medical on [facility] Branch 05/03/20 at 0900, Until Discontinu ed, Routine ascorbic 2020-0 Yes 1000mg 1,000 mg, Un de[place] acid 05-03 Oral, ity of (vitamin C) 14:00: [place]ILY, [place] (VITAMIN C) 00 First dose Me dical tablet on [facility] 1,000 mg 05/03/20 at 0900, Until Discontinu ed, Routine ergocalcife 2020-0 Yes [id number] 50,000 Un debo rol 05-03 Units, ity of (vitamin 14:00: Oral, [place] d2) 00 QWEEKLY, Medical (CALCIFEROL First dose Br anch ) capsule on [facility] 50,000 05/03/20 at Units 0900, Until Discontinu ed, Routine zinc 2020-0 Yes 220mg 220 mg, Univers sulfate 05-03 Oral, ity of (ORAZINC) 14:00: DAILY, [place] capsule 220 00 First dose Me dical mg on [facility] Branch 05/03/20 at 0900, Until Discontinu ed, Routine iohexol 2020-0 2020- No 120mL 120 mL, Unive rs (OMNIPAQUE 05-02 Intravenou it y of 350 23:30: 23:30 s, ONCE, 1 [place] BULK-150 00 :00 dose, Wed Medica l mL) 05/02/20 at Branch injection 1830, 120 mL Routine sulfur 2020-0 2020- No 5mL 5 mL, Univers hexafluorid 05-02 Intravenou i ty of e microsphr 20:00: 20:00 s, ONCE, 1 [place] (LUMASON) 00 :00 dose, Wed Medic al injection 5 05/02/20 at [facility] mL [address], [address] crew member approving Restricted medication : RAHUL BRUCE traMADoL 2020- No 50mg 50 mg, Univer s (ULTRAM) 05-02 Oral, ity of tablet 50 16:33: 16:32 Q8HPRN, [place] mg 34 :34 Starting Medical 05/02/20 Branch at 1133, Until 05/04/20 at 1132, Routine, Pain (scale 4-6) acetaminoph Yes 650mg 650 mg, Un debo en 05-02 Oral, ity of (TYLENOL) 16:33: Q6HPRN, [place] tablet 650 30 Starting Medic al mg 05/02/20 Branch at 1133, Until Discontinu ed, Routine, Pain (scale 1-3) aspirin 2020- No 324mg 324 mg, Unive rs chewable 05-02 Oral, ity of tablet 324 16:15: 16:06 ONCE, 1 [place] as mg 00 :00 dose, [facility] Medical 05/02/20 at Branch 1115, Routine NaCl 0.9% 2020- No 1000mL at 999 Uni vers (NS) bolus 05-02 mL/hr, ity of infusion 14:15: 14:27 1,000 mL, [place] as 1,000 mL 00 :00 IV Medical Infusion, [place] ONCE, 1 dose, 05/02/20 at 0915, LILL[place] Aspir-81 2018-0 Yes Nilanjana not Jorge christiane 05-13 [place] defined l 02:45: [place] 28 Carvedilol 2018-0 Yes Nilanjana 2 tabs Memoria 05-13 [place] l 02:45: [place] 28 Immunizations Ordered Filled Immunization Date Status Comments Sour e Immunization Name Name diphtheria/pertussi 2021-05-16 Completed [facility] Cuellar s, acel/tetanus 18:20:00 adult<sup>1</sup> influenza virus 2021-05-16 Completed Kary Cuellar vaccine, 18:18:00 inactivated<sup>2</ sup> SARS-COV-2 COVID-19 2020-11-25 Completed Unive rsity of MODERNA VACCINE 00:00:00 [facility] Branch SARS-COV-2 COVID-19 2020-11-25 Completed Unive rsity of MODERNA VACCINE 00:00:00 [place] Med ical Branch SARS-COV-2 COVID-19 2020-11-25 Completed Unive rsity of MODERNA VACCINE 00:00:00 [place] Med ical Branch SARS-COV-2 COVID-19 2020-11-25 Completed Unive rsity of MODERNA VACCINE 00:00:00 [place] Med ical Branch SARS-COV-2 COVID-19 2020-11-25 Completed Unive rsity of MODERNA VACCINE 00:00:00 [place] Med ical Branch SARS-COV-2 COVID-19 2020-11-25 Completed Unive rsity of MODERNA VACCINE 00:00:00 [place] Med ical Branch SARS-COV-2 COVID-19 2020-11-25 Completed Unive rsity of MODERNA VACCINE 00:00:00 [place] Med ical Branch SARS-COV-2 COVID-19 2020-11-25 Completed Unive rsity of MODERNA VACCINE 00:00:00 [place] Med ical Branch SARS-COV-2 COVID-19 2020-11-25 Completed Unive rsity of MODERNA VACCINE 00:00:00 [place] Med ical Branch SARS-COV-2 COVID-19 2020-11-25 Completed Unive rsity of MODERNA VACCINE 00:00:00 [place] Med ical Branch SARS-COV-2 COVID-19 2020-10-28 Completed Unive rsity of MODERNA VACCINE 00:00:00 [place] Med ical Branch SARS-COV-2 COVID-19 2020-10-28 Completed Unive rsity of MODERNA VACCINE 00:00:00 [place] Med ical Branch SARS-COV-2 COVID-19 2020-10-28 Completed Unive rsity of MODERNA VACCINE 00:00:00 [place] Med ical Branch SARS-COV-2 COVID-19 2020-10-28 Completed Unive rsity of MODERNA VACCINE 00:00:00 [place] Med ical Branch SARS-COV-2 COVID-19 2020-10-28 Completed Unive rsity of MODERNA VACCINE 00:00:00 [place] Med ical Branch SARS-COV-2 COVID-19 2020-10-28 Completed Unive rsity of MODERNA VACCINE 00:00:00 [place] [facility] ical Branch SARS-COV-2 COVID-19 2020-10-28 Completed Unive rsity of MODERNA VACCINE 00:00:00 [facility] SARS-COV-2 COVID-19 2020-10-28 Completed Unive rsity of MODERNA VACCINE 00:00:00 [facility] SARS-COV-2 COVID-19 2020-10-28 Completed Unive rsity of MODERNA VACCINE 00:00:00 [facility] SARS-COV-2 COVID-19 2020-10-28 Completed Unive rsity of MODERNA VACCINE 00:00:00 [facility] influenza virus 2020-05-29 Completed [facility] [place] vaccine, 00:00:00 inactivated<sup>3</ sup> influenza virus 2020-05-29 Completed [facility] [place] vaccine, 00:00:00 inactivated<sup>1</ sup> Influenza Virus 2020-05-01 Completed Universit y of Vaccine 00:00:00 [facility] Influenza Virus 2020-05-01 Completed Universit y of Vaccine 00:00:00 [facility] Influenza Virus 2020-05-01 Completed Universit y of Vaccine 00:00:00 [facility] Influenza Virus 2020-05-01 Completed Universit y of Vaccine 00:00:00 [facility] Influenza Virus 2020-05-01 Completed Universit y of Vaccine 00:00:00 [facility] Influenza Virus 2020-05-01 Completed Universit y of Vaccine 00:00:00 [facility] Influenza Virus 2020-05-01 Completed Universit y of Vaccine 00:00:00 [facility] Influenza Virus 2020-05-01 Completed Universit y of Vaccine 00:00:00 [facility] Influenza Virus 2020-05-01 Completed Universit y of Vaccine 00:00:00 [facility] Influenza Virus 2020-05-01 Completed Universit y of Vaccine 00:00:00 [facility] Influenza Virus 2020-05-01 Completed Universit y of Vaccine 00:00:00 [facility] Influenza Virus 2020-05-01 Completed Universit y of Vaccine 00:00:00 [facility] influenza virus 2019-05-16 Completed [facility] vaccine, 18:00:00 inactivated Influenza Virus 2019-05-16 Completed Universit y of Vaccine 00:00:00 [facility] Influenza Virus 2019-05-16 Completed Universit y of Vaccine 00:00:00 [facility] Influenza Virus 2019-05-16 Completed Universit y of Vaccine 00:00:00 [facility] Influenza Virus 2019-05-16 Completed Universit y of Vaccine 00:00:00 [facility] Influenza Virus 2019-05-16 Completed Universit y of Vaccine 00:00:00 [facility] Influenza Virus 2019-05-16 Completed Universit y of Vaccine 00:00:00 [facility] Influenza Virus 2019-05-16 Completed Universit y of Vaccine 00:00:00 [facility] Influenza Virus 2019-05-16 Completed Universit y of Vaccine 00:00:00 [facility] Influenza Virus 2019-05-16 Completed Universit y of Vaccine 00:00:00 [facility] Influenza Virus 2019-05-16 Completed Universit y of Vaccine 00:00:00 [facility] Influenza Virus 2019-05-16 Completed Universit y of Vaccine 00:00:00 [facility] Influenza Virus 2019-05-16 Completed Universit y of Vaccine 00:00:00 [facility] Influenza Virus 2019-05-16 Completed Universit y of Vaccine 00:00:00 [facility] Influenza Virus 2019-05-16 Completed Universit y of Vaccine 00:00:00 [facility] Influenza Virus 2019-05-16 Completed Universit y of Vaccine 00:00:00 [facility] Influenza Virus 2019-05-16 Completed Universit y of Vaccine 00:00:00 [facility] influenza virus 2018-05-14 Completed [facility] vaccine, 19:54:00 inactivated<sup>1</ sup> influenza virus 2018-05-14 Completed [facility] vaccine, 19:54:00 inactivated<sup>4</ sup> influenza virus 2018-05-14 Completed [facility] vaccine, 19:54:00 inactivated<sup>2</ sup> Influenza Virus 2018-05-14 Completed Universit y of Vaccine 00:00:00 [facility] Influenza Virus 2018-05-14 Completed Universit y of Vaccine 00:00:00 [facility] Influenza Virus 2018-05-14 Completed Universit y of Vaccine 00:00:00 [facility] Influenza Virus 2018-05-14 Completed Universit y of Vaccine 00:00:00 [facility] Influenza Virus 2018-05-14 Completed Universit y of Vaccine 00:00:00 [facility] Influenza Virus 2018-05-14 Completed Universit y of Vaccine 00:00:00 [facility] Influenza Virus 2018-05-14 Completed Universit y of Vaccine 00:00:00 [facility] Influenza Virus 2018-05-14 Completed Universit y of Vaccine 00:00:00 [facility] Influenza Virus 2018-05-14 Completed Universit y of Vaccine 00:00:00 [facility] Influenza Virus 2018-05-14 Completed Universit y of Vaccine 00:00:00 [facility] Influenza Virus 2018-05-14 Completed Universit y of Vaccine 00:00:00 [facility] Influenza Virus 2018-05-14 Completed Universit y of Vaccine 00:00:00 [facility] Influenza Virus 2018-05-14 Completed Universit y of Vaccine 00:00:00 [facility] Influenza Virus 2018-05-14 Completed Universit y of Vaccine 00:00:00 [facility] Influenza Virus 2018-05-14 Completed Universit y of Vaccine 00:00:00 [facility] Influenza Virus 2018-05-14 Completed Universit y of Vaccine 00:00:00 [facility] pneumococcal 2018-02-23 Completed [facility] 23-valent vaccine 18:37:00 Pneumococcal 2018-02-23 Completed University o f Polysaccharide, 00:00:00 [place] [facility] PPSV23 (PNEUMOVAX) Branch Pneumococcal 2018-02-23 Completed University o f Polysaccharide, 00:00:00 [place] [facility] PPSV23 (PNEUMOVAX) Branch Pneumococcal 2018-02-23 Completed University o f Polysaccharide, 00:00:00 [place] [facility] PPSV23 (PNEUMOVAX) Branch Pneumococcal 2018-02-23 Completed University o f Polysaccharide, 00:00:00 [place] [facility] PPSV23 (PNEUMOVAX) Branch Pneumococcal 2018-02-23 Completed University o f Polysaccharide, 00:00:00 [place] [facility] PPSV23 (PNEUMOVAX) Branch Pneumococcal 2018-02-23 Completed University o f Polysaccharide, 00:00:00 [place] [facility] PPSV23 (PNEUMOVAX) Branch Pneumococcal 2018-02-23 Completed University o f Polysaccharide, 00:00:00 [place] [facility] PPSV23 (PNEUMOVAX) Branch Pneumococcal 2018-02-23 Completed University o f Polysaccharide, 00:00:00 [place] [facility] PPSV23 (PNEUMOVAX) Branch Pneumococcal 2018-02-23 Completed University o f Polysaccharide, 00:00:00 [place] [facility] PPSV23 (PNEUMOVAX) Branch Pneumococcal 2018-02-23 Completed University o f Polysaccharide, 00:00:00 [place] [facility] PPSV23 (PNEUMOVAX) Branch Pneumococcal 2018-02-23 Completed University o f Polysaccharide, 00:00:00 [place] [facility] PPSV23 (PNEUMOVAX) Branch Pneumococcal 2018-02-23 Completed University o f Polysaccharide, 00:00:00 [place] [facility] PPSV23 (PNEUMOVAX) Branch Pneumococcal 2018-02-23 Completed University o f Polysaccharide, 00:00:00 [place] [facility] PPSV23 (PNEUMOVAX) Branch Pneumococcal 2018-02-23 Completed University o f Polysaccharide, 00:00:00 [place] [facility] PPSV23 (PNEUMOVAX) Branch Pneumococcal 2018-02-23 Completed University o f Polysaccharide, 00:00:00 [place] [facility] PPSV23 (PNEUMOVAX) Branch Pneumococcal 2018-02-23 Completed University o f Polysaccharide, 00:00:00 [place] [facility] PPSV23 (PNEUMOVAX) Branch zoster vaccine 2017-01-13 Completed [facility] live<sup>2</sup> 14:49:00 zoster vaccine 2017-01-13 Completed [facility] live<sup>1</sup> 14:49:00 zoster vaccine 2017-01-13 Completed [facility] live<sup>5</sup> 14:49:00 zoster vaccine 2017-01-13 Completed [facility] live<sup>3</sup> 14:49:00 Zoster(Zostavax)( 2017-01-13 Completed Unive rsity of ingles) 00:00:00 [facility] Zoster(Zostavax)( 2017-01-13 Completed Unive rsity of ingles) 00:00:00 [facility] Zoster(Zostavax)( 2017-01-13 Completed Unive rsity of ingles) 00:00:00 [facility] Zoster(Zostavax)( 2017-01-13 Completed Unive rsity of ingles) 00:00:00 [facility] Zoster(Zostavax)( 2017-01-13 Completed Unive rsity of ingles) 00:00:00 [facility] Zoster(Zostavax)( 2017-01-13 Completed Unive rsity of ingles) 00:00:00 [facility] Zoster(Zostavax)( 2017-01-13 Completed Unive rsity of ingles) 00:00:00 [facility] Zoster(Zostavax)( 2017-01-13 Completed Unive rsity of ingles) 00:00:00 [facility] Zoster(Zostavax)( 2017-01-13 Completed Unive rsity of ingles) 00:00:00 [facility] Zoster(Zostavax)( 2017-01-13 Completed Unive rsity of ingles) 00:00:00 [facility] Zoster(Zostavax)( 2017-01-13 Completed Unive rsity of ingles) 00:00:00 [facility] Zoster(Zostavax)( 2017-01-13 Completed Unive rsity of ingles) 00:00:00 [facility] Zoster(Zostavax)( 2017-01-13 Completed Unive rsity of ingles) 00:00:00 [facility] Zoster(Zostavax)( 2017-01-13 Completed Unive rsity of ingles) 00:00:00 [facility] Zoster(Zostavax)( 2017-01-13 Completed Unive rsity of ingles) 00:00:00 [facility] Zoster(Zostavax)( 2017-01-13 Completed Unive rsity of ingles) 00:00:00 [facility] TDAP 2016-03-04 Completed University of 00:00:00 [facility] TDAP 2016-03-04 Completed University of 00:00:00 [facility] TDAP 2016-03-04 Completed University of 00:00:00 [facility] TDAP 2016-03-04 Completed University of 00:00:00 [facility] TDAP 2016-03-04 Completed University of 00:00:00 [facility] TDAP 2016-03-04 Completed University of 00:00:00 [facility] TDAP 2016-03-04 Completed University of 00:00:00 [facility] TDAP 2016-03-04 Completed University of 00:00:00 [facility] TDAP 2016-03-04 Completed University of 00:00:00 [facility] TDAP 2016-03-04 Completed University of 00:00:00 [facility] TDAP 2016-03-04 Completed University of 00:00:00 [facility] TDAP 2016-03-04 Completed University of 00:00:00 [facility] TDAP 2016-03-04 Completed University of 00:00:00 [facility] TDAP 2016-03-04 Completed University of 00:00:00 [facility] TDAP 2016-03-04 Completed University of 00:00:00 [facility] TDAP 2016-03-04 Completed University of 00:00:00 [facility] Vital Signs Vital Name Observation Time Observation Value Comments Source Systolic blood 2021-04-29 20:45:00 137 mm[Hg] Univer sity of pressure [facility] Diastolic blood 2021-04-29 20:45:00 80 mm[Hg] Unive rsity of pressure [facility] Heart rate 2021-04-29 20:45:00 54 /min [facility]i ty [facility] [place] [facility] [place] Respiratory rate 2021-04-29 20:45:00 18 /min Univ ersity of [facility] Body height 2021-04-29 20:45:00 162.6 cm Universi ty [facility] [place] Body weight 2021-04-29 20:45:00 102.195 kg [facility]i ty [facility] [place] BMI 2021-04-29 20:45:00 38.67 kg/m2 Universi ty [facility] Oxygen saturation in 2021-04-29 20:45:00 93 /min University of Arterial blood by [facility] Pulse oximetry Branch Systolic blood 2021-01-28 20:50:00 133 mm[Hg] Univer sity of pressure [facility] Diastolic blood 2021-01-28 20:50:00 76 mm[Hg] Unive rsity of pressure [facility] Heart rate 2021-01-28 20:50:00 63 /min Universi ty of [facility] Branch Respiratory rate 2021-01-28 20:50:00 16 /min Univ ersity of [facility] Oxygen saturation in 2021-01-28 20:50:00 97 /min University of Arterial blood by [facility] Pulse oximetry Branch Body temperature 2021-01-28 17:01:00 37.17 [place] Univ ersity of [facility] Body height 2021-01-28 17:01:00 162.6 cm Universi ty of [facility] Body weight 2021-01-28 17:01:00 104.327 kg Universi ty of [facility] BMI 2021-01-28 17:01:00 39.48 kg/m2 [facility] ty [facility] Systolic blood 2020-12-26 20:07:00 145 mm[Hg] Univer sity of pressure [facility] Diastolic blood 2020-12-26 20:07:00 84 mm[Hg] Unive rsity of pressure [facility] Heart rate 2020-12-26 20:01:00 56 /min Universi ty of [facility] Respiratory rate 2020-12-26 20:01:00 19 /min Univ ersity of [facility] Body height 2020-12-26 20:01:00 162.6 cm Universi ty of [facility] Body weight 2020-12-26 20:01:00 101.878 kg Universi ty of [facility] BMI 2020-12-26 20:01:00 38.55 kg/m2 Universi ty of [facility] Oxygen saturation in 2020-12-26 20:01:00 94 /min University of Arterial blood by [facility] Pulse oximetry Branch Systolic blood 2020-09-04 21:31:00 147 mm[Hg] Univer sity of pressure [facility] Diastolic blood 2020-09-04 21:31:00 88 mm[Hg] Unive rsity of pressure [facility] Heart rate 2020-09-04 21:31:00 56 /min Universi ty of [facility] Respiratory rate 2020-09-04 21:25:00 19 /min Univ ersity of [facility] Body height 2020-09-04 21:25:00 162.6 cm Universi ty of [facility] Body weight 2020-09-04 21:25:00 103.103 kg Universi ty of [facility] BMI 2020-09-04 21:25:00 39.02 kg/m2 Universi ty [facility] Oxygen saturation in 2020-09-04 21:25:00 95 /min University of Arterial blood by [facility] Pulse oximetry Branch Systolic blood 2020-09-04 21:31:00 147 mm[Hg] Univer sity of pressure [facility] Diastolic blood 2020-09-04 21:31:00 88 mm[Hg] Unive rsity of pressure [facility] Heart rate 2020-09-04 21:31:00 56 /min Universi ty of [facility] Respiratory rate 2020-09-04 21:25:00 19 /min Univ ersity of [facility] Body height 2020-09-04 21:25:00 162.6 cm [facility]i ty [facility] Body weight 2020-09-04 21:25:00 103.103 kg Universi ty of [facility] BMI 2020-09-04 21:25:00 39.02 kg/m2 Universi ty of [facility] Oxygen saturation in 2020-09-04 21:25:00 95 /min [facility] blood by [facility] Systolic blood 2020-06-04 18:31:00 150 mm[Hg] Univer sity of pressure [facility] Diastolic blood 2020-06-04 18:31:00 80 mm[Hg] Unive rsity of pressure [facility] Heart rate 2020-06-04 18:26:00 64 /min Universi ty of [facility] Respiratory rate 2020-06-04 18:26:00 19 /min Univ ersity of [facility] Body height 2020-06-04 18:26:00 162.6 cm Universi ty of [facility] Body weight 2020-06-04 18:26:00 102.15 kg Universi ty of [facility] BMI 2020-06-04 18:26:00 38.66 kg/m2 [facility] ty [facility] Oxygen saturation in 2020-06-04 18:26:00 97 /min University [facility]terial blood by [place] [facility] Systolic blood 2020-05-03 17:00:00 152 mm[Hg] Univer sity of pressure [facility] Diastolic blood 2020-05-03 17:00:00 91 mm[Hg] Unive rsity of pressure [facility] Heart rate 2020-05-03 17:00:00 80 /min Universi ty of [facility] Body temperature 2020-05-03 17:00:00 37.17 [place] Univ ersity of [facility] Respiratory rate 2020-05-03 17:00:00 20 /min Univ ersity of [facility] Oxygen saturation in 2020-05-03 17:00:00 95 /min University of Arterial blood by [place] [facility] P[facility]xim[facility] Body height 2020-05-02 16:42:00 162.6 cm [facility] Body weight 2020-05-02 14:01:00 106.595 kg [facility] BMI 2020-05-02 14:01:00 40.34 kg/m2 [facility] Weight 2019-05-12 14:30:00 Kary Cuellar Height 2019-05-12 14:30:00 Kary Cuellar Heart Rate 2019-05-12 14:30:00 [facility] Diastolic (mm Hg) 2019-05-12 14:30:00 Justin Pierceann Systolic (mm Hg) 2019-05-12 14:30:00 Jorge [facility] Procedures Procedure Date / Time Performing Clinician Source Performed CT ABDOMEN PELVIS W 2021-01-28 20:42:31 Serina Robbins Mai [facility] CONTRAST [facility] US GALL BLADDER 2021-01-28 19:48:48 Rosendo, K [facility] XR ABDOMEN 2 VW 2021-01-28 18:34:34 Rosendo, [facility] CBC WITH DIFF 2021-01-28 17:53:00 Sheela Otoole [facility] LIPASE 2021-01-28 17:52:00 Sheela Otoole [facility] TROPONIN I 2021-01-28 17:52:00 Sheela Otoole [facility] HEPATIC FUNCTION PANEL 2021-01-28 17:52:00 [id number] (ALB,T.PRO,[facility] T,BU/BC,ALT,AST,ALK PHOS) BASIC METABOLIC PANEL 2021-01-28 17:52:00 Sheela Otoole [facility] versity [facility] (NA, K, CL, CO2, Medical Branch GLUCOSE, BUN, CREATININE, CA) URINALYSIS 2021-01-28 17:52:00 Sheela Otoole [facility] NOTICE OF PRIVACY 2021-01-28 16:53:48 Doctor Unassigned, No Univ [facility] PRACTICES Name [facility] CONSENT/REFUSAL FOR 2021-01-28 16:53:30 Doctor Unassigned, No [facility] DIAGNOSIS AND TREATMENT Name [facility] AUTHORIZATION TO RELEASE 2020-12-26 05:01:00 Doctor Unassigned, No [facility] PHI TO [facility] Name Medical Branch CONSENT/REFUSAL FOR 2020-06-04 18:15:50 Doctor Unassigned, No Un [facility] DIAGNOSIS AND TREATMENT Name Medical Branch BASIC METABOLIC PANEL 2020-05-03 08:54:00 Kory Wagoner [facility] (NA, K, CL, CO2, Medical Branch GLUCOSE, BUN, CREATININE, CA) CBC WITH DIFF 2020-05-03 08:54:00 Rizwana [facility] TROPONIN I 2020-05-03 00:31:00 Rizwana [facility] CT CHEST PULMONARY 2020-05-02 23:24:37 Phyllis Kate [facility] ANGIOGRAM [facility] ECHO ROUTINE W/DOPPLER 2020-05-02 19:36:36 Rizwana Kory [facility] COLOR [facility] TROPONIN I 2020-05-02 19:27:00 Rizwana [facility] URINALYSIS 2020-05-02 17:33:00 Sheela Otoole [facility] LACTATE DEHYDROGENASE 2020-05-02 17:16:00 [facility] 2020-05-02 [facility] 2020-05-02 17:16:00 Gabo [facility] XR CHEST 1 VW 2020-05-02 16:15:52 Sheela Otoole [facility] EKG-12 LEAD 2020-05-02 15:15:12 Sheela Otoole [facility] EKG-12 LEAD 2020-05-02 15:08:22 Sheela Otoole [facility] CREATINE KINASE 2020-05-02 14:22:00 Sheela Otoole [facility] MAGNESIUM 2020-05-02 14:22:00 Sheela Otoole [facility] TROPONIN I 2020-05-02 14:22:00 Sheela Otoole [facility] HEPATIC FUNCTION PANEL 2020-05-02 14:22:00 [id number] (ALB,T.PRO,BILI Medical Branch T,BU/BC,ALT,AST,ALK PHOS) BASIC METABOLIC PANEL 2020-05-02 14:22:00 Sheela Otoole [facility] (NA, K, CL, CO2, Medical Branch GLUCOSE, BUN, CREATININE, CA) CBC WITH DIFF 2020-05-02 14:22:00 [facility] GLYCOSYLATED HEMOGLOBIN 2020-05-02 14:22:00 Phyllis Kate [facility] (A1C) Medical Branch COVID-19 (ID NOW RAPID 2020-05-02 14:22:00 Sheela Otoole Un [facility] TESTING) [facility] Branch CONSENT/REFUSAL FOR 2020-05-02 13:48:45 Doctor Unassigned, No [facility] TREATMENT Name [facility] [U] XRAY KNEE 3 VWS 2019-05-20 00:00:00 [facility] RIGHT [id number] Colonoscopy 2018-07-01 00:00:00 [facility] Colonoscopy and biopsy 2012-08-31 00:00:00 Miguelito Cuellar of colon<sup>1</sup> Appendectomy [facility] Hernia, inguinal, left [facility] Encounters Start End Encounter Admission Attending Care Care Encounter Source Date/Time Date/Time Type Type Clinicians Facility Department ID 2021-10-01 Outpatient [id number] Memoria 03:21:44 [id number] [facility] [id number] 2021-06-[address] [facility] [id number] Univers 22:13:42 ity of [facility] 2021-04-29 2021-04-29 Office Gm [facility] [id number] Univers 15:33:12 15:57:29 Visit Tyson Priest [id number] ity [place] [id number] Edgar Alejandraio [phone] [place] dical nal 059 Branch Building 2021-04-29 2021-04-29 Outpatient R GM, [facility] [id number] Univers 15:40:00 15:40:00 TYSON [id number] ity o f [facility] 2021-04-29 2021-04-29 Outpatient R GM, [facility] [id number] Univers 15:40:00 15:40:00 TYSON ity o f [facility] 2021-03-27 2021-03-27 Outpatient R GM, [facility] [id number] Univers 15:20:00 15:20:00 BRIDGERBRAYDEN [id number] ity o f [facility] 2021-03-20 2021-03-20 [facility] [id number] Univers 00:00:00 00:00:00 Tyson Priest [id number] [id number] [phone] [place]ical [place]al 9 [facility] 2021-01-28 2021-01-28 Emergency Rosendo, Serina [facility] [id number] Univers 12:03:00 16:53:00 Mai Priest [id number] i [id number] [phone] [facility] [address] [place] 2021-01-28 2021-01-28 Orders Doctor ESTELA 1.2.840.114 [id number] Univers 00:00:00 00:00:00 Only Unassigned, YESICA [id number] [place] [facility] [id number] [place] [phone] [facility] 009 Branch 2020-12-26 2020-12-26 [facility] [id number] Univers 14:55:23 15:23:24 Visit Tyson Priest [id number] [id number] [phone] [place]ical [place]al 059 [facility] 2020-12-26 2020-12-26 Outpatient R GM, [facility] [id number] Univers 15:00:00 15:00:00 [facility] [id number] ity o [facility] 2020-12-26 2020-12-26 Outpatient R GM, [facility] [id number] Univers 15:00:00 15:00:00 ALEXANDREBRAYDEN y o [facility] 2020-12-26 2020-12-26 Orders Doctor ESTELA [id number] [id number] Univers 00:00:00 00:00:00 Only Unassigned, YESICA [id number] ity [facility] [id number] [place] [phone] [address] 2020-12-03 2020-12-03 [facility] [id number] Univers 15:20:00 15:20:00 [facility] [id number] [facility] o [facility] 2020-12-03 2020-12-03 [facility] [id number] Univers 15:20:00 15:20:00 ALEXANDREBRAYDEN [facility] 2020-11-25 2020-11-[address] [facility] [id number] Univers 14:20:00 14:20:00 ity [facility] 2020-10-28 2020-10-[address] [facility] [id number] Univers 14:30:00 14:30:00 ity [facility] 2020-09-04 2020-09-04 Office [facility] 1.2.840.114 [id number] Univers 14:27:20 15:50:55 Visit Bridgerbrayden Cem [id number] ity [facility] [id number] [phone] [place] [address] 2020-09-04 2020-09-04 Office [facility] 1.2.840.114 [id number] 14:27:20 15:50:55 Visit Tyson Cem [id number] [place] [id number] Profess[address] [phone] [address] 2020-09-04 2020-09-04 Outpatient R GM, [facility] [id number] Univers 15:20:00 15:20:00 TYSON [id number] ity o pantera [facility] 2020-09-04 2020-09-04 Outpatient R GM, [facility] [id number] Univers 15:20:00 15:20:00 TYSON braga o pantera [facility] 2020-06-26 2020-06-[address] [facility] [id number] Univers 11:15:00 11:15:00 [id number] ity of [facility] 2020-06-26 2020-06-26 Outpatient R GM, [facility] [id number] Univers 08:30:00 08:30:00 TYSON crocker [facility] 2020-06-04 2020-06-04 Office [facility] 1.2.840.114 [id number] Univers 13:18:26 14:23:36 Visit Tyson Priest [id number] ity [id number] [facility] [phone] [place] [facility] 059 Branch [facility] 2020-06-04 2020-06-04 Outpatient R GM, [facility] [id number] Univers 14:20:00 14:20:00 TYSON braga o [facility] 2020-06-04 2020-06-04 Orders Doctor ESTELA 1.2.840.114 [id number] Univers 00:00:00 00:00:00 Only Unassigned, YESICA [id number] [facility] [id number] [place] [phone] [facility] 009 Branch 2020-05-02 2020-05-03 Emergency Sheela Otoole [facility] 1.2.8 [id number] Univers 09:03:00 13:15:00 Kory Wagoner [id number] [id number] [phone] [facility] 080 Branch 2020-05-02 2020-05-02 Emergency X [facility] ERT [id number] Univers 08:49:00 08:49:00 ity of [facility] 2019-05-25 2019-05-25 Appointmen IVETH [facility] Orthopedics [id number] [place] 14:45:00 14:45:00 t; IVETH WASHBURN, [facility] JW WASHBURN ans ANDREW, M.D. M.D. Results Test Description Test Time Test Comments Results Result Comments Source CHEM PANEL 2021-05-16 14:28:00 Test Item Value Reference Range Interpretation Comme nts Glucose Lvl (test code = Glucose Lvl) 135 65-99 [facility] [id number] 14:28:00 Test Item Value Reference Range Interpretation Comments BUN (test code = BUN) 17 7-25 [facility] [id number] 14:28:00 Test Item Value Reference Range Interpretation Comments Creatinine Lvl (test code = Creatinine 0.80 0.70-1.25 Lvl) [facility] [id number] 14:28:00 Test Item Value Reference Range Interpretation Comments eGFR NON-AFR. [place] (test code = 95 eGFR NON-AFR. [place]ANDER) [facility] [id number] 14:28:00 Test Item Value Reference Range Interpretation Comments eGFR (test code = eGFR 110 ) [facility] [employer] [id number] 14:28:00 Test Item Value Reference Range Interpretation Comments B/C Ratio (test code = B/C NOT APPLICABLE 622 Ratio) [facility] [id number] 14:28:00 Test Item Value Reference Range Interpretation Comments Sodium Lvl (test code = Sodium Lvl) 142 135-146 [facility] [id number] 14:28:00 Test Item Value Reference Range Interpretation Comments Potassium Lvl (test code = Potassium 4.6 3.5-5.3 Lvl) [facility] [employer] [id number] 14:28:00 Test Item Value Reference Range Interpretation Comments Chloride Lvl (test code = Chloride Lvl) 106 98-110 [facility] [employer] [id number] 14:28:00 Test Item Value Reference Range Interpretation Comments CO2 (test code = CO2) 31 20-32 [facility] [id number] 14:28:00 Test Item Value Reference Range Interpretation Comments Calcium Lvl (test code = Calcium Lvl) 8.9 8.6-10.3 [place] [id number] 14:28:00 Test Item Value Reference Range Interpretation Comments Total Protein (test code = Total 6.8 6.1-8.1 Protein) [place] [id number] 14:28:00 Test Item Value Reference Range Interpretation Comments Albumin Lvl (test code = Albumin Lvl) 3.9 3.6-5.1 [place] [id number] 14:28:00 Test Item Value Reference Range Interpretation Comments Globulin (test code = Globulin) 2.9 1.9-3.7 [place] [id number] 14:28:00 Test Item Value Reference Range Interpretation Comments A/G Ratio (test code = A/G Ratio) 1.3 1.0-2.5 [place] [id number] 14:28:00 Test Item Value Reference Range Interpretation Comments Bili Total (test code = Bili Total) 0.6 0.2-1.2 [place] [id number] 14:28:00 Test Item Value Reference Range Interpretation Comments Alk Phos (test code = Alk Phos) 56 35-144 [place] [id number] 14:28:00 Test Item Value Reference Range Interpretation Comments ASPARTATE TRANSAMINASE (test code = 13 10-35 ASPARTATE TRANSAMINASE) [place] [id number] 14:28:00 Test Item Value Reference Range Interpretation Comments ALANINE AMINOTRANSFERASE (test code = 19 9-46 ALANINE AMINOTRANSFERASE) [place] [id number] 14:28:00 Test Item Value Reference Range Interpretation Comments Chol (test code = Chol) 168 [place] [id number] 14:28:00 Test Item Value Reference Range Interpretation Comments HDL (test code = HDL) 42 [place] [id number] 14:28:00 Test Item Value Reference Range Interpretation Comments Trig (test code = Trig) 111 [place] [id number] 14:28:00 Test Item Value Reference Range Interpretation Comments LDL (Calculated) (test code = LDL 105 (Calculated)) [place] [id number] 14:28:00 Test Item Value Reference Range Interpretation Comments CHD Risk (test code = CHD Risk) 4.0 [place] [id number] 14:28:00 Test Item Value Reference Range Interpretation Comments Non HDL Chol (test code = Non HDL Chol) [facility] [id number] 14:28:00 Test Item Value Reference Range Interpretation Comments Hgb A1C (test code = Hgb A1C) 6.2 [facility] [id number] 14:28:00 Test Item Value Reference Range Interpretation Comments PSA (test code = PSA) 1.55 [facility] [id number] 14:28:00 Test Item Value Reference Range Interpretation Comments U Creat mg/dL (test code = U Creat 135 20-320 mg/dL) [facility] [id number] 14:28:00 Test Item Value Reference Range Interpretation Comments U Alb (test code = U Alb) 1.6 [facility] [id number] 14:28:00 Test Item Value Reference Range Interpretation Comments U Alb/Crea (test code = U Alb/Crea) 12 [facility] ABDOMEN PELVIS W [id number] 21:10:29 1. ?Mild acute interstitial pancreatitis. No fluid collection. 2. ?Sigmoid diverticulosis. 3. ?Prostatomegaly and secondary outlet obstruction evidenced by bladderwall thickening. Preliminary Report Dictated by Resident: Karina Blackman MD., have reviewed this study and agree with theabove report.EXAM: CT ABDOMEN AND PELVIS WITH CONTRAST HISTORY: 60-year-old male with right-sided a bdominal pain COMPARISON: None. DOSE: Total exam DLP 612 mGy-cm TECHNIQUE AND FINDINGS: Contiguous axial imaging was performed from thelung bases to the proximal femurs after the administration of intravenousOmnipaque contrast in the portal venous phase. Coronal and sagittalreconstructions were obtained. FINDINGS: LOWER THORAX: The lung bases are clear. LIVER: No focal hepatic lesions. Normal liver contour. Mild hepaticsteatosis. No intrahepatic ductal dilatation. The portal veins are patent. GALLBLADDER AND BILIARY TREE: No biliary ductal dilation. ?No hyperdensestones. SPLEEN: No splenomegaly. PA NCREAS: No ductal dilation. Mild peripancreatic haziness and surroundingfat stranding about the pancreatic head extending to the mesenteric rootand along right anterior pararenal fascia. ADRENAL GLANDS: No adrenal nodules. KIDNEYS: No hydronephrosis, stones, or contour deforming lesions. PERITONEUM AND RETROPERITONEUM: No free air or free fluid. Haziness ofmesenteric root as above. LYMPH NODES: No enlarged lymphadenopathy. GI TRACT: No bowel dilatation or abnormal wall thickening. Small bowelappearsunremarkable. The appendix is not clearly visualized, likelysurgically absent. Sigmoid diverticulosis without diverticulitis. PELVIS/BLADDER: The urinary bladder centeno appear thickened, which may berelated to bladder outlet obstruction related to prostatomegaly, whichmeasuring up to 5.4 cm at the level of the bilateral femoral heads. VESSELS: Unremarkable. BONES AND SOFT TISSUES: No suspicious lytic or sclerotic bone lesions. [facility], Radiant Results Inft User - 01/28/2021 4:11 PM CDT EXAM: CT ABDOMEN AND PELVIS WITH CONTRASTHISTORY: 60-year-old male with right-sided abdominal painCOMPARISON: None.DOSE: Total exam DLP 612 mGy-cmTECHNIQUE AND FINDINGS: Contiguous axial imaging was performed from thelung bases to the proximal femurs after the administration of intravenousOmnipaque contrast in the portal venous phase. Coronal and sagittalreconstructions were obtained.FINDINGS:LOWER THORAX: The lung bases are clear. LIVER: No focal hepatic lesions. Normal liver contour. Mild hepaticsteatosis. No intrahepatic ductal dilatation. The portal veins are patent.GALLBLADDER AND BILIARY TREE: No biliary ductal dilation. No hyperdensestones.SPLEEN:No splenomegaly.PANCREAS: No ductal dilation. Mild peripancreatic haziness and surroundingfat stranding about the pancreatic head extending to the mesenteric rootand along right anterior pararenal fasci a.ADRENAL GLANDS: No adrenal nodules.KIDNEYS: No hydronephrosis, stones, or contour deforming lesions.PERITONEUM AND RETROPERITONEUM: No free air or free fluid. Haziness ofmesenteric root as above.LYMPH NODES: No enlarged lymphadenopathy.GI TRACT: No bowel dilatation or abnormal wall thickening. Small bowelappears unremarkable. The appendix is not clearly visualized, likelysurgically absent. Sigmoid diverticulosis without diverticulitis.PELVIS/BLADDER: The urinary bladder centeno appear thickened, which may berelated to bladder outlet obstruction related to prostatomegaly, whichmeasuring up to 5.4 cmat the level of the bilateral femoral heads.VESSELS: Unremarkable.BONES AND SOFT TISSUES: No suspicious lytic or sclerotic bone lesions.IMPRESSION1. Mild acute interstitial pancreatitis. No fluid colle ction.2. Sigmoid diverticulosis.3. Prostatomegaly and secondary outlet obstruction evidenced by bladderwall thickening.Preliminary Report Dictated by Resident: Karina Montalvo MD., have reviewed this study and agree with theabove report.[facility] GALL BLADDER 2021-01-28 20:11:58 1. ?No cholelithiasis. Gallbladder sludge. No acute cholecystitis . 2. ?Moderate hepatic steatosis.Preliminary Report Dictated by Resident: Karina Gonzalez MD., have reviewed this study and agree with theabove report.EXAM: US GALL BLADDER HISTORY: 60 years-old Male with r/o cholecystitis . TECHNIQUE: Limited abdominal ultrasound performed focused on thegallbladder. Main portal vein was evaluated with color Doppler imaging.Terminal Carman images were obtained for the record. COMPARISON: None FINDINGS: LIVER: Limited evaluation of the liver on this focused gallbladderexamination.. Diffuse increase in hepatic parenchymal heterogenicity. Nofocal hepatic lesion. The liver is enlarged measuring 18.4 cm incraniocaudal dimension. ?Hepatopetal flow in the main portal vein. GALLBLADDER:No cholelithiasis.Normal gallbladder wall thickness, 2 mm.Negative Frankel's sign. No pericholecystic fluid. BILE DUCTS:No intra- or extrahepatic biliary dilatation..Common Duct diameter: 3 mm. OTHER: ?No splenomegaly. [facility], Radiant Results Inft User - 01/28/2021 3:13 PM CDT EXAM: US GALL BLADDERHISTORY: 60 years-old Male with r/o cholecystitis .TECHNIQUE: Limited abdominal ultrasound performed focused on thegallbladder. Main portal vein was evaluated with color Doppler imaging.Terminal Carman images were obtained for the record.COMPARISON: NoneFINDINGS: LIVER: Limited evaluation of the liver on this focused gallbladderexamination.. Diffuse increase in hepatic parenchymal heterogenicity. Nofocal hepatic lesion. The liver is enlarged measuring 18.4 cm incraniocaudal dimension. Hepatopetal flow in the main portal vein.GALLBLADDER:No c holelithiasis.Normal gallbladder wall thickness, 2 mm.Negative Frankel's sign. No pericholecystic fluid.BILE DUCTS:No intra- or extrahepatic biliary dilatation..Common Duct diameter: 3 mm.OTHER: No splenomegaly.IMPRESSION1. No cholelithiasis. Gallbladder sludge. No acute cholecystitis .2. Moderate hepatic steatosis.Preliminary Report Dictated by Resident: Karina Moss MD.,have reviewed this study and agree with theabove report. [facility] [id number] 19:00:48 Nonobstructive bowel gas pattern. Preliminary Report Dictated by Resident: Karina Blackman MD., have reviewed this study and agree with theabove report.EXAM: XR ABDOMEN 2 VW HISTORY: 60 years-old Male abd pain COMPARISON: None available. TECHNIQUE: Supine AP view of the abdomen and pelvis. FINDINGS: Moderate stool burden within ascending and transverse colon. Gas isvisualized within the rectosigmoid colon. The bowel gas pattern isnonobstructive. The visualized bones and soft tissues are within normal limits. [facility], Radiant Results Inft User - 01/28/2021 2:01 PM CDT EXAM: XR ABDOMEN 2 VWHISTORY: 60 years-old Male abd pain COMPARISON: None available.TECHNIQUE: Supine AP view of the abdomen and pelvis.FINDINGS:Moderatestool burden within ascending and transverse colon. Gas isvisualized within the rectosigmoid colon. The bowel gas pattern isnonobstructive.The visualized bones and soft tissues are within normal limits.IMPRESSIONNonobstructive bowel gas pattern.Preliminary Report Dictated by Resident: Karina Montalvo MD., have reviewed this study and agree with theabove report.[facility] 2021-01-28 18:43:47 Test Item Value Reference Range Interpretation Comments TROPONIN I (test 0.000 ng/mL See_Comment [Automated code = 0715732016) message] The system which generated this result transmitted reference range : <=0.034. The reference range was not used to interpret this result as normal/abnormal . ELENA (test code = Equal or Less than ELENA) 0.034 ng/ml---Normal ?Note: Cardiac troponin begins to rise 3-4 hours after the onset of ischemia. Repeat in 4-6 hours if the sample was drawn within 3-4 hours of the onset of the symptom and found normal. Between 0.035 and 0.120 ng/mL--- Borderline. Questionable myocardial injury or necrosis ? ?Note: Serial measurement may be necessary to confirm or exclude the diagnosis of myocardial injury or necrosis; Clinical correlation (symptoms, EKGs, imaging studies, and others) required; Repeat in 4-6 hours if clinically indicated. ? Equal or Higher than 0.121 ng/mL---Abnormal. Myocardial Injury or Necrosis Likely ? Biotin has been reported to cause a negative bias, interpret results relative to patient's use of biotin. ? Lab Interpretation Normal (test code = 86919-2) [facility] (NA, K, CL, CO2, GLUCOSE, BUN, CREATININE, CA)2021-01-28 18:32:06 Test Item Value Reference Range Interpretation Comments NA (test code = 136 mmol/L 135-145 2742112404) K (test code = 4.0 mmol/L 3.5-5.0 6690567594) CL (test code = 102 mmol/L 98-108 9787348717) CO2 TOTAL (test code = 27 mmol/L 23-31 7464331817) AGAP (test code = 2-16 0318910092) BUN (test code = 16 mg/dL 7-23 5828326139) GLUCOSE (test code = 115 mg/dL 70-110 H 0093213857) CREATININE (test code = 0.74 mg/dL 0.60-1.25 9305292495) CALCIUM (test code = 9.1 mg/dL 8.6-10.6 4764240022) eGFR (test code = mL/min/1.73m2 1127026371) ELENA (test code = ELENA) Association of Glomerular Filtration Rate (GFR) and Staging of Kidney Disease* + --+ --+ ------+| GFR (mL/min/1.73 m2) ?| With Kidney Damage ?| ?Without Kidney Damage+ --------+ --------+ +| ?>90 ?| ?Stage one ?| ? Normal ?+ ---+ ---+ -------+| ?60-89 ?| ?Stage two ?| ? Decreased GFR ? + --+ --+ ------+| ?30-59 ?| ?Stage three ?| ? Stage three ? + --+ --+ ------+| ?15-29 ?| ?Stage four ? | ? Stage four ?+ ---+ ---+ -------+| ?<15 (or dialysis) ? ?| ?Stage five ? | ? Stage five ?+ ---+ ---+ -------+ *Each stage assumes the associated GFR level has been in effect for at least three months. ?Stages 1 to 5, with or without kidney disease, indicate chronic kidney disease. Notes: Determination of stages one and two (with eGFR >59mL/min/1.73 m2) requires estimation of kidney damage for at least three months as defined by structural or functional abnormalities of the kidney, manifested by either:Pathological abnormalities or Markers of kidney damage (including abnormalities in the composition of the blood or urine or abnormalities in imaging tests). Lab Interpretation Abnormal (test code = 45190-1) [facility] (ALB, T.PRO, BILI T, BU/BC, ALT, AST, ALK PHOS)2021-01-28 18:32:06 Test Item Value Reference Range Interpretation Comments TOTAL BILI (test code = 9948065705) 0.9 mg/dL 0.1-1.1 BILI UNCON (test code = 6056140238) 0.9 mg/dL 0.1-1.1 BILI CONJ (test code = 9247328201) 0.0 mg/dL 0.0-0.3 T PROTEIN (test code = 3090789836) 7.8 g/dL 6.3-8.2 ALBUMIN (test code = 6609257009) 4.3 g/dL 3.5-5.0 ALK PHOS (test code = 4951033695) 72 U/L 34-122 ALTv (test code = 1742-6) 23 U/L 5-50 AST(SGOT) (test code = 5725878616) 24 U/L 13-40 Lab Interpretation (test code = Normal 41222-5) [facility] CenterLipase [id number] 18:32:06 Test Item Value Reference Range Interpretation Comments LIPASE (test code = 6486700488) 247 U/L 0-220 H Lab Interpretation (test code = Abnormal 61628-5) [facility] CenterUrinalysis2021-05-31 18:11:33 Test Item Value Reference Range Interpretation Comments APPEARANCE (test code = Clear Clear 0962848155) COLOR (test code = Yellow Yellow 0613331134) PH (test code = 4.8-8.0 1784729694) SP GRAVITY (test code = 1.003-1.030 8305708803) GLU U QUAL (test code = Normal Normal 5238742481) BLOOD (test code = Negative Negative 4710230764) KETONES (test code = Negative Negative 7403535298) PROTEIN (test code = Negative Negative 2887-8) UROBILIN (test code = Normal Normal 8184767175) BILIRUBIN (test code = Negative Negative 7913159431) NITRITE (test code = Negative Negative 3110526471) LEUK JAMAR (test code = Negative Negative 5227894016) RBC/HPF (test code = See_Comment H [Autom ated message] 7024364078) The system Be my eyes generated this result transmitted ref erence range: 0 - 3 HP F. The reference range was not used to int erpret this result as normal/abnormal . WBC/HPF (test code = See_Comment [Autom ated message] 2785460451) The system [employer] my [employer] generated this result transmitted ref erence range: 0 - 5 HP F. The reference range was not used to int erpret this result as normal/abnormal . BACTERIA (test code = Negative Negative 8323066201) Lab Interpretation (test Abnormal code = 55103-8) [facility] CenterCBC with [id number] 18:05:05 Test Item Value Reference Range Interpretation Comments WBC (test code = See_Comment H [Automated 6690-2) message] The sy stem which generated this result transmitted reference range : 4.20 - 10.70 10*3/?L. The reference range was not used to interpret this result as normal/abnormal . RBC (test code = See_Comment [Automated 789-8) message] The sy stem which generated this result transmitted reference range : 4.26 - 5.52 10*6/?L. The reference range was not used to interpret this result as normal/abnormal . HGB (test code = 14.4 g/dL 12.2-16.4 718-7) HCT (test code = 41.7 % 38.4-49.3 4544-3) MCV (test code = 84.2 fL 81.7-95.6 787-2) MCH (test code = 29.1 pg 26.1-32.7 785-6) MCHC (test code = 34.5 g/dL 31.2-35.0 786-4) RDW-SD (test code = 40.7 fL 38.5-51.6 66729-9) RDW-CV (test code = 13.3 % 12.1-15.4 788-0) PLT (test code = See_Comment [Automated 777-3) message] The sy stem which generated this result transmitted reference range : 150 - 328 10*3/ ?L. The reference r omi was not used to interpret this result as normal/abnormal . MPV (test code = 12.2 fL 9.8-13.0 89351-7) NRBC/100 WBC (test See_Comment [Automat ed code = 3753541146) message] The system which generated this result transmitted reference range : 0.0 - 10.0 /100 WBCs. The refer ence range was not u sed to interpret th is result as normal/abnormal . NRBC x10^3 (test code <0.01 See_Comment [Auto mated = 8905344473) message] The s ystem which generated this result transmitted reference range : 10*3/?L. The reference range was not used to interpret this result as normal/abnormal . GRAN MAT (NEUT) % 76.6 % (test code = 770-8) IMM GRAN % (test code 0.40 % = 7602919304) LYMPH % (test code = 13.7 % 736-9) MONO % (test code = 8.3 % 5905-5) EOS % (test code = 0.8 % 713-8) BASO % (test code = 0.2 % 706-2) GRAN MAT x10^3(ANC) 8.39 10*3/uL 1.99-6.95 H (test code = 4130241113) IMM GRAN x10^3 (test 0.04 10*3/uL 0.00-0.06 code = 3585820547) LYMPH x10^3 (test code 1.50 10*3/uL 1.09-3.23 = 731-0) MONO x10^3 (test code 0.91 10*3/uL 0.36-1.02 = 742-7) EOS x10^3 (test code = 0.09 10*3/uL 0.06-0.53 711-2) BASO x10^3 (test code <0.03 0.01-0.09 = 704-7) Lab Interpretation Abnormal (test code = 93620-3) [facility] CHEST PULMONARY [id number] 14:17:23 No acute pulmonary embolism to the subsegmental level. 4 mm left upper lobe pulmonary nodule. If the patient has a significantsmoking history recommend follow-up chest CT in one year. 1.4 cm right thyroid lobe nodule with coarse calcification. Recommendcorrelation with ultrasound as outpatient. Corbin Murphy MD., have reviewed this study and agree with theabove report.PROCEDURE: CT ANGIO CHEST WITH CONTRAST - PE PROTOCOL CLINICAL INDICATION: PE suspected, intermediate prob, positive D-dimer ? COMPARISON: None. TECHNIQUE: ?Helical CT was performed and reconstructed at 1.25 mm slicethi ckness from lung base to apices after the administration of 120 mLOmnipaque-350 intravenous contrast, without complication. ?Display field ofview: 44 cm. FINDINGS: PULMONARY ARTERIES:Enhancement is adequate, however respiratory motion limits evaluation,particularly in the lower lobes. No acute pulmonary embolus is seen to thesubsegmental level. Hypodense appearance of the right middle lobe lateralsegmental pulmonary artery on 7:167 is artifactual. The pulmonary trunk isnormal in caliber. CHEST:Lowerneck/thyroid: 1.4 cm right thyroid lobe hypodense nodule with coarsecalcification, partially visualized. Limited evaluation of the rightsupraclavicular neck due to artifact. Lungs/Pleura: Elevation of the left hemidiaphragm and bibasilar dependentatelectasis. 4 mm pulmonary nodule in the left upper lobe on 7:99. Noparenchymal consolidations. No pleural thickening, pleural effusion orpneumothorax. Central airway: The central airways are patent. Thoracic aorta and great vessels: Normal in diameter. Type I arch. Heart and pericardium: No detectable coronary arterial calcification.Unremarkable cardiac morphology and pericardium. Lymph nodes: No enlarged thoracic lymph nodes. Mediastinum: Unremarkable.Thoracic spine and chest wall: No suspicious or aggressive osseous lesion.Moderate diffuse degenerative changes throughout thoracic spine. Other Lines/Tubes/Devices/Hardware: None Visualized upper abdomen: Enlarged steatotic liver. [facility], Radiant Results Inft User - 2019 9:18 AM CDTPROCEDURE: CT ANGIO CHEST WITH CONTRAST - PE PROTOCOLCLINICAL INDICATION: PE suspected, intermediate prob, positive D-dimer COMPARISON: None.TECHNIQUE: Helical CT was performed and reconstructed at 1.25 mm slicethickness from lung base to apices after the administration of 120 mLOmni paque-350 intravenous contrast, without complication. Display field ofview: 44 cm.FINDINGS:PULMONARY ARTERIES:Enhancement is adequate, however respiratory motion limits evaluation,particularly in the lower lobes. No acute pulmonary embolus is seen to thesubsegmental level. Hypodense appearance of theright middle lobe lateralsegmental pulmonary artery on 7:167 is artifactual. The pulmonary trunk isnormal in caliber.CHEST:Lower neck/thyroid: 1.4 cm right thyroid lobe hypodense nodule with coarsecalcification, partially visualized. Limited evaluation of the rightsupraclavicular neck due to artifact.L ungs/Pleura: Elevation of the left hemidiaphragm and bibasilar dependentatelectasis. 4 mm pulmonary nodule in the left upper lobe on 7:99. Noparenchymal consolidations. No pleural thickening, pleural effusion orpneumothorax.Central airway: The central airways are patent.Thoracic aorta and great vessels: Normal in diameter. Type I arch.Heart and pericardium: No detectable coronary arterial calcification.Unremarkable cardiac morphology and pericardium.Lymph nodes: No enlarged thoracic lymph nodes.Mediastinum: Unremarkable.Thoracic spine and chest wall: No suspicious or aggressive osseous lesion.Moderate diffuse degenerative changes throughout thoracic spine.Other Lines/Tubes/Devices/Hardware: NoneVisualized upper abdomen: Enlarged steatotic liver. IMPRESSIONNo acute pulmonary embolism to the subsegmental level. 4 mm left upper lobe pulmonary nodule. If the patient hasa significantsmoking history recommend follow-up chest CT in one year.1.4 cm right thyroid lobe nodule with coarse calcification. Recommendcorrelation with ultrasound as outpatient.ICorbin MD., have reviewed this study and agree with theabove report.[facility] (NA, K, CL, CO2, GLUCOSE, BUN, CREATININE, CA)2020-05-03 11:27:00 Test Item Value Reference Range Interpretation Comments NA (test code = 134 mmol/L 135-145 L 5337008196) K (test code = 4.0 mmol/L 3.5-5 5866694550) CL (test code = 103 mmol/L 98-108 8397836710) CO2 TOTAL (test code = 29 mmol/L 23-31 1610112022) AGAP (test code = 2-16 1914398338) BUN (test code = 18 mg/dL 7-23 4687961175) GLUCOSE (test code = 106 mg/dL 70-110 8033969485) CREATININE (test code = 0.73 mg/dL 0.6-1.25 1804420962) CALCIUM (test code = 7.5 mg/dL 8.6-10.6 L 5030575323) eGFR Calculation mL/min/1.73m2 (Non-) (test code = 9055488336) eGFR Calculation mL/min/1.73m2 () (test code = 0983766537) ELENA (test code = ELENA) Association of Glomerular Filtration Rate (GFR) and Staging of Kidney Disease* + --+ --+ ------+| GFR (mL/min/1.73 m2) ?| With Kidney Damage ?| ?Without Kidney Damage+ --------+ --------+ +| ?>90 ?| ?Stage one ?| ? Normal ?+ ---+ ---+ -------+| ?60-89 ?| ?Stage two ?| ? Decreased GFR ? + --+ --+ ------+| ?30-59 ?| ?Stage three ?| ? Stage three ? + --+ --+ ------+| ?15-29 ?| ?Stage four ? | ? Stage four ?+ ---+ ---+ -------+| ?<15 (or dialysis) ? ?| ?Stage five ? | ? Stage five ?+ ---+ ---+ -------+ *Each stage assumes the associated GFR level has been in effect for at least three months. ?Stages 1 to 5, with or without kidney disease, indicate chronic kidney disease. Notes: Determination of stages one and two (with eGFR >59mL/min/1.73 m2) requires estimation of kidney damage for at least three months as defined by structural or functional abnormalities of the kidney, manifested by either:Pathological abnormalities or Markers of kidney damage (including abnormalities in the composition of the blood or urine or abnormalities in imaging tests). Lab Interpretation Abnormal (test code = 09929-8) [facility] with Ofkkartucpvv5212-31-81 10:47:00 Test Item Value Reference Range Interpretation Comments WBC (test code = See_Comment [Automated 6738-2) message] The sy stem which generated this result transmitted reference range : 4.20 - 10.70 10*3/?L. The reference range was not used to interpret this result as normal/abnormal . RBC (test code = See_Comment [Automated 846-8) message] The sy stem which generated this result transmitted reference range : 4.26 - 5.52 10*6/?L. The reference range was not used to interpret this result as normal/abnormal . HGB (test code = 14.3 g/dL 12.2-16.4 718-7) HCT (test code = 43.8 % 38.4-49.3 4544-3) MCV (test code = 89.2 fL 81.7-95.6 787-2) MCH (test code = 29.1 pg 26.1-32.7 785-6) MCHC (test code = 32.6 g/dL 31.2-35 786-4) RDW-SD (test code = 50.0 fL 38.5-51.6 54126-7) RDW-CV (test code = 15.2 % 12.1-15.4 788-0) PLT (test code = See_Comment L [Automated 777-3) message] The sy stem which generated this result transmitted reference range : 150 - 328 10*3/ ?L. The reference r omi was not used to interpret this result as normal/abnormal . MPV (test code = 13.0 fL 9.8-13 35569-8) NRBC/100 WBC (test See_Comment [Automat ed code = 7199391323) message] The system which generated this result transmitted reference range : 0.0 - 10.0 /100 WBCs. The refer ence range was not u sed to interpret th is result as normal/abnormal . NRBC x10^3 (test code <0.01 See_Comment [Auto mated = 6208715242) message] The s ystem which generated this result transmitted reference range : 10*3/?L. The reference range was not used to interpret this result as normal/abnormal . GRAN MAT (NEUT) % 60.0 % (test code = 770-8) IMM GRAN % (test code 0.60 % = 7212591901) LYMPH % (test code = 24.0 % 736-9) MONO % (test code = 12.9 % 5905-5) EOS % (test code = 2.2 % 713-8) BASO % (test code = 0.3 % 706-2) GRAN MAT x10^3(ANC) 4.09 10*3/uL 1.99-6.95 (test code = 0618123851) IMM GRAN x10^3 (test 0.04 10*3/uL 0-0.06 code = 9157167025) LYMPH x10^3 (test code 1.64 10*3/uL 1.09-3.23 = 731-0) MONO x10^3 (test code 0.88 10*3/uL 0.36-1.02 = 742-7) EOS x10^3 (test code = 0.15 10*3/uL 0.06-0.53 711-2) BASO x10^3 (test code <0.03 0.01-0.09 = 704-7) Lab Interpretation Abnormal (test code = 18946-5) [facility] [id number] 02:04:00 Test Item Value Reference Range Interpretation Comments TROPONIN I (test 0.022 ng/mL See_Comment [Automated code = 9320923851) message] The system which generated this result transmitted reference range : <=0.034. The reference range was not used to interpret this result as normal/abnormal . ELENA (test code = Equal or Less than ELENA) 0.034 ng/ml---Normal ?Note: Cardiac troponin begins to rise 3-4 hours after the onset of ischemia. Repeat in 4-6 hours if the sample was drawn within 3-4 hours of the onset of the symptom and found normal. Between 0.035 and 0.120 ng/mL--- Borderline. Questionable myocardial injury or necrosis ? ?Note: Serial measurement may be necessary to confirm or exclude the diagnosis of myocardial injury or necrosis; Clinical correlation (symptoms, EKGs, imaging studies, and others) required; Repeat in 4-6 hours if clinically indicated. ? Equal or Higher than 0.121 ng/mL---Abnormal. Myocardial Injury or Necrosis Likely ? Biotin has been reported to cause a negative bias, interpret results relative to patient's use of biotin. ? Lab Interpretation Normal (test code = 40386-7) [facility] (A1C)2020-05-02 22:28:00 Test Item Value Reference Range Interpretation Comments HGB A1C (test code = 6.5 % 4-6 H 4548-4) ELENA (test code = ELENA) %A1C (NGSP) Interpretation (ADA)4.8-5.6 ? ? Normal or (Non-Diabetic Range)5.7-6.4 ? ? Increased Risk (Pre-Diabetic)>6.5 ?Diabetes Indicated Lab Interpretation Abnormal (test code = 95759-6) [facility]IN2020-[facility]-02 21:06:00 Test Item Value Reference Range Interpretation Comments Procalcitonin (test 0.06 ng/mL <0.07 code = 0891830954) ELENA (test code = ELENA) INTERPRETATION OF PROCALCITONIN RESULTS IN ADULTS >= 18 YEARS OF AGE Initiation and discontinuation of antibiotics on patients with suspected or confirmed Lower Respiratory Tract Infection in Adults >= 18 years of age. + +-------- --------+ + -----+|Procalcitonin |Interpretation ?|Antibiotic ? ? |Considerations ? |ng/mL ? | ?|recommendation | ? + +-------- --------+ + -----+| <0.1 ? | Bacterial ? ? ?| Strongly ? ? ?| ? | ?| infection very | discouraged ? | Overruling: ? | ?| unlikely ? ? ? | ? | ? Clinically unstable ? ? ? + +-------- --------+ + ? High risk for adverse ? ? | <0.25 ?| Bacterial ? ? ?| Discouraged ? | ? outcome ? | ?| infection ? ? ?| ? | ? SEE IMPORTANT NOTE ?| ?| unlikely ? ? ? | ? | ? + +-------- --------+ + -----+| >=0.25 ? ? ? | Bacterial ? ? ?| Encouraged ? ?| ? | ?| infection ? ? ?| ? | ? | ?| likely ? | ? | Consider treatment failure ?+ +------- ---------+ -+ if levels does not decrease | >0.5 ? | Bacterial ? ? ?| Strongly ? ? ?| appropriately ? | ?| infection very | encouraged ? ?| ? | ?| likely ? | ? | ? + +-------- --------+ + -----+ Discontinuation of antibiotics in high-acuity patients with suspected or confirmed sepsis in Adults >= 18 years of age. + +-------- --------+ + -----+|Procalcitonin |Interpretation ?|Antibiotic ? ? |Considerations ? |ng/mL ? | ?|recommendation | ? + +-------- --------+ + -----+| <0.25 ?| Bacterial ? ? ?| Strongly ? ? ?| ? | ?| infection very | discouraged ? | Overruling: ? | ?| unlikely ? ? ? | ? | ? Clinically unstable ? ? ? + +-------- --------+ + ? High risk for adverse ? ? | <0.5 or drop | Bacterial ? ? ?| Discouraged ? | ? outcome ? | >80% from ? ?| infection ? ? ?| ? | ? SEE IMPORTANT NOTE ?| highest PCT ?| unlikely ? ? ? | ? | ? | level ?| ?| ? | ? + +-------- --------+ + -----+| >=0.5 ?| Bacterial ? ? ?| Encouraged ? ?| ? | ?| infection ? ? ?| ? | ? | ?| likely ? | ? | Consider treatment failure ?+ +------- ---------+ -+ if levels does not decrease | >1.0 ? | Bacterial ? ? ?| Strongly ? ? ?| appropriately ? | ?| infection very | encouraged ? ?| ? | ?| likely ? | ? | ? + +-------- --------+ + -----+ Percentage of drop of Procalcitonin calculation for Discontinuation of antibiotics in high-acuity patients with suspected or confirmed sepsis in Adults >= 18 years of age. ? Procalcitonin highest{}-Procalcitonin current{}Delta Procalcitonin = x100% ? Procalcitonin current {} IMPORTANT NOTE: Procalcitonin may be elevated without bacterial infection by physiologic stress related to trauma, mera, chronic dialysis, metastatic cancer, surgery in the past seven days, malaria, some fungal infections, and some forms of vasculitis. The interpretation algorithm may not apply to patients with immunosuppression (equivalent of >10 mg of prednisone daily), HIV with CD4 cell count < 350 cells/mm3, active malignancy on systemic chemotherapy, solid organ transplant or hematopoietic stem cell transplantation, or hospital acquired pneumonia. Additionally, some clinical trials of procalcitonin have excluded patients with shock requiring vasopressor use, acute respiratory failure requiring mechanical ventilation, or those with known lung abscess/empyema. For further information please refer to:[email or web address] Lab Interpretation Normal (test code = 01478-4) [facility] [id number] 20:08:00 Test Item Value Reference Range Interpretation Comments TROPONIN I (test 0.033 ng/mL See_Comment [Automated code = 7973392163) message] The system which generated this result transmitted reference range : <=0.034. The reference range was not used to interpret this result as normal/abnormal . ELENA (test code = Equal or Less than ELENA) 0.034 ng/ml---Normal ?Note: Cardiac troponin begins to rise 3-4 hours after the onset of ischemia. Repeat in 4-6 hours if the sample was drawn within 3-4 hours of the onset of the symptom and found normal. Between 0.035 and 0.120 ng/mL--- Borderline. Questionable myocardial injury or necrosis ? ?Note: Serial measurement may be necessary to confirm or exclude the diagnosis of myocardial injury or necrosis; Clinical correlation (symptoms, EKGs, imaging studies, and others) required; Repeat in 4-6 hours if clinically indicated. ? Equal or Higher than 0.121 ng/mL---Abnormal. Myocardial Injury or Necrosis Likely ? Biotin has been reported to cause a negative bias, interpret results relative to patient's use of biotin. ? Lab Interpretation Normal (test code = 75154-3) [facility] CenterUrinalysis2020-[facility] 19:07:00 Test Item Value Reference Range Interpretation Comments APPEARANCE (test code = Clear Clear 6800205934) COLOR (test code = Yellow Yellow 7307840215) PH (test code = 4.8-8.0 9123875106) SP GRAVITY (test code = 1.003-1.030 2654881370) GLU U QUAL (test code = Normal Normal 1835427286) BLOOD (test code = 1+ Negative A 9925774492) KETONES (test code = 20 mg/dL Negative A 4620000222) PROTEIN (test code = Negative Negative 2887-8) UROBILIN (test code = Normal Normal 1069794728) BILIRUBIN (test code = Negative Negative 6668812802) NITRITE (test code = Negative Negative 8534109485) LEUK JAMAR (test code = Negative Negative 2581463520) RBC/HPF (test code = See_Comment [Autom ated message] 4522440129) The system [employer] my [employer] generated this result transmitted ref erence range: 0 - 3 HP F. The reference range was not used to int erpret this result as normal/abnormal . WBC/HPF (test code = <1 See_Comment [Autom ated message] 3605879089) The system [employer] generated this result transmitted ref erence range: 0 - 5 HP F. The reference range was not used to int erpret this result as normal/abnormal . BACTERIA (test code = Negative Negative 0526138353) MUCOUS (test code = Slight Negative LPF A 4737633593) Lab Interpretation (test Abnormal code = 31878-8) [facility] CenterLACTATE [id number] 18:37:00 Test Item Value Reference Range Interpretation Comments LDH (test code = 8749308558) 460 U/L 300-600 Lab Interpretation (test code = Normal 29014-2) [facility] CenterD-EYHRI6379-43-77 18:12:00 Test Item Value Reference Interpretation Comments Range D-DIMER (test code = See_Comment H [Autom ated 5190348588) message] The system which generated this result transmitted reference range : <0.41 ?g/mL (FEU). The reference range was not used to interpret this result as normal/abnormal . ELENA (test code = This test may be ELEAN) used in conjunction with a clinical pretest probability (PTP) assessment model to exclude venous thromboembolism (VTE) in patients suspected of deep venous thrombosis (DVT) and pulmonary embolism (PE) A D-Dimer value less than 0.50 ?g/ml (FEU) has a negative predicative value of 96 to 100% (95% CI)and 97 to 100% (95% CI) as an aid in the diagnosis of deep vein thrombosis (DVT) and pulmonary embolism when there is low or moderate pretest probability of PE or DVT. D-Dimer values are expressed in initial fibrinogen equivalent units (FEU)" The assay results should be used with other information, including the clinical context, in forming a diagnosis. Lab Interpretation Abnormal (test code = 52690-2) [facility] 1 Zpkd8925-10-31 16:20:31HISTORY: COVID positive. TECHNIQUE: Portable AP semierect view of the chest is obtained. FINDINGS: No acute pneumonia. No pneumothorax or pleural effusion orpulmonary congestion detected. Cardiac size is within upper normal limits. CONCLUSIONS: No signs of acute cardiopulmonary disease.[facility], Radiant Results Inft User - 05/02/2020 11:21 AM CDTHISTORY: COVID positive.TECHNIQUE: Portable AP semierect view of the chest is obtained.FINDINGS: No acute pneumonia. No pneumothorax or pleural effusion orpulmonary congestion detected. Cardiac size is within upper normal limits. CONCLUSIONS: No signs of acutecardiopulmonary disease.[facility] CenterCREATINE [id number] 15:01:00 Test Item Value Reference Range Interpretation Comments CK (test code = 9255787022) 75 U/L 33-194 Lab Interpretation (test code = Normal 21150-6) [facility] CenterTroponin [id number] 15:00:00 Test Item Value Reference Range Interpretation Comments TROPONIN I (test 0.068 ng/mL See_Comment H [Automated code = 8615767892) message] The system which generated this result transmitted reference range : <=0.034. The reference range was not used to interpret this result as normal/abnormal . ELENA (test code = Equal or Less than LEENA) 0.034 ng/ml---Normal ?Note: Cardiac troponin begins to rise 3-4 hours after the onset of ischemia. Repeat in 4-6 hours if the sample was drawn within 3-4 hours of the onset of the symptom and found normal. Between 0.035 and 0.120 ng/mL--- Borderline. Questionable myocardial injury or necrosis ? ?Note: Serial measurement may be necessary to confirm or exclude the diagnosis of myocardial injury or necrosis; Clinical correlation (symptoms, EKGs, imaging studies, and others) required; Repeat in 4-6 hours if clinically indicated. ? Equal or Higher than 0.121 ng/mL---Abnormal. Myocardial Injury or Necrosis Likely ? Biotin has been reported to cause a negative bias, interpret results relative to patient's use of biotin. ? Lab Interpretation Abnormal (test code = 67895-7) [facility] (NA, K, CL, CO2, GLUCOSE, BUN, CREATININE, CA)2020-05-02 14:49:00 Test Item Value Reference Range Interpretation Comments NA (test code = 132 mmol/L 135-145 L 1552807153) K (test code = 4.0 mmol/L 3.5-5 6603910837) CL (test code = 101 mmol/L 98-108 5277339917) CO2 TOTAL (test code = 27 mmol/L 23-31 3342858933) AGAP (test code = 2-16 3717024958) BUN (test code = 20 mg/dL 7-23 6847355227) GLUCOSE (test code = 124 mg/dL 70-110 H 8239925010) CREATININE (test code = 0.74 mg/dL 0.6-1.25 0003919424) CALCIUM (test code = 7.9 mg/dL 8.6-10.6 L 6235397867) eGFR Calculation mL/min/1.73m2 (Non-) (test code = 4930919223) eGFR Calculation mL/min/1.73m2 () (test code = 6334070459) ELENA (test code = ELENA) Association of Glomerular Filtration Rate (GFR) and Staging of Kidney Disease* + --+ --+ ------+| GFR (mL/min/1.73 m2) ?| With Kidney Damage ?| ?Without Kidney Damage+ --------+ --------+ +| ?>90 ?| ?Stage one ?| ? Normal ?+ ---+ ---+ -------+| ?60-89 ?| ?Stage two ?| ? Decreased GFR ? + --+ --+ ------+| ?30-59 ?| ?Stage three ?| ? Stage three ? + --+ --+ ------+| ?15-29 ?| ?Stage four ? | ? Stage four ?+ ---+ ---+ -------+| ?<15 (or dialysis) ? ?| ?Stage five ? | ? Stage five ?+ ---+ ---+ -------+ *Each stage assumes the associated GFR level has been in effect for at least three months. ?Stages 1 to 5, with or without kidney disease, indicate chronic kidney disease. Notes: Determination of stages one and two (with eGFR >59mL/min/1.73 m2) requires estimation of kidney damage for at least three months as defined by structural or functional abnormalities of the kidney, manifested by either:Pathological abnormalities or Markers of kidney damage (including abnormalities in the composition of the blood or urine or abnormalities in imaging tests). Lab Interpretation Abnormal (test code = 69423-8) [facility] CenterMAGNESIUM2020-09-02 14:49:00 Test Item Value Reference Range Interpretation Comments MAGNESIUM (test code = 7527336810) 1.9 mg/dL 1.7-2.4 Lab Interpretation (test code = Normal 30018-0) [facility] with Fogfvoktwgeb3661-71-72 14:48:00 Test Item Value Reference Range Interpretation Comments WBC (test code = See_Comment [Automated 6158-2) message] The sy stem which generated this result transmitted reference range : 4.20 - 10.70 10*3/?L. The reference range was not used to interpret this result as normal/abnormal . RBC (test code = See_Comment H [Automated 377-0) message] The sy stem which generated this result transmitted reference range : 4.26 - 5.52 10*6/?L. The reference range was not used to interpret this result as normal/abnormal . HGB (test code = 16.0 g/dL 12.2-16.4 718-7) HCT (test code = 48.6 % 38.4-49.3 4544-3) MCV (test code = 87.7 fL 81.7-95.6 787-2) MCH (test code = 28.9 pg 26.1-32.7 785-6) MCHC (test code = 32.9 g/dL 31.2-35 786-4) RDW-SD (test code = 47.9 fL 38.5-51.6 37304-7) RDW-CV (test code = 14.8 % 12.1-15.4 788-0) PLT (test code = See_Comment L [Automated 777-3) message] The sy stem which generated this result transmitted reference range : 150 - 328 10*3/ ?L. The reference r omi was not used to interpret this result as normal/abnormal . MPV (test code = 12.4 fL 9.8-13 88598-6) IPF % (test code = 9.4 % 1.2-10.7 Platelet count 8464448036) measured by fluorescence method. NRBC/100 WBC (test See_Comment [Automat ed code = 1787239994) message] The system which generated this result transmitted reference range : 0.0 - 10.0 /100 WBCs. The refer ence range was not u sed to interpret th is result as normal/abnormal . NRBC x10^3 (test code <0.01 See_Comment [Auto mated = 2880305333) message] The s ystem which generated this result transmitted reference range : 10*3/?L. The reference range was not used to interpret this result as normal/abnormal . GRAN MAT (NEUT) % 63.3 % (test code = 770-8) IMM GRAN % (test code 0.60 % = 4401537690) LYMPH % (test code = 20.8 % 736-9) MONO % (test code = 14.1 % 5905-5) EOS % (test code = 0.9 % 713-8) BASO % (test code = 0.3 % 706-2) GRAN MAT x10^3(ANC) 4.95 10*3/uL 1.99-6.95 (test code = 2833879501) IMM GRAN x10^3 (test 0.05 10*3/uL 0-0.06 code = 0748460378) LYMPH x10^3 (test code 1.63 10*3/uL 1.09-3.23 = 731-0) MONO x10^3 (test code 1.10 10*3/uL 0.36-1.02 H = 742-7) EOS x10^3 (test code = 0.07 10*3/uL 0.06-0.53 711-2) BASO x10^3 (test code <0.03 0.01-0.09 = 704-7) Lab Interpretation Abnormal (test code = 84491-0) [facility] Center[facility] (ALB, T.PRO, BILI T, BU/BC, ALT, AST, ALK PHOS)2020-05-02 14:48:00 Test Item Value Reference Range Interpretation Comments TOTAL BILI (test code = 9978924455) 1.0 mg/dL 0.1-1.1 BILI UNCON (test code = 0741081332) 0.7 mg/dL 0.1-1.1 BILI CONJ (test code = 3170019385) 0.0 mg/dL 0-0.3 T PROTEIN (test code = 5201274517) 5.7 g/dL 6.3-8.2 L ALBUMIN (test code = 1951970048) 3.2 g/dL 3.5-5 L ALK PHOS (test code = 7279022956) 46 U/L 34-122 ALTv (test code = 1742-6) 23 U/L 5-50 AST(SGOT) (test code = 9816765714) 25 U/L 13-40 Lab Interpretation (test code = Abnormal 52443-4) [facility] CenterCOVID[facility] (ID NOW RAPID TESTING)2020-05-02 14:46:00 Test Item Value Reference Range Interpretation Comments SARS-CoV-2 Rapid ID NOW Positive Not Detected A (test code = 97174-4) ELENA (test code = ELENA) ID NOW COVID-19 Assay is an isothermal nucleic acid amplification test intended for the qualitative detection of nucleic acid from SARS-CoV-2 viral RNA in nasopharyngeal (COMMERCIAL ANALYST) specimens. It is used under Emergency Use Authorization (EUA) by FDA. The limit of detection (LOD) of the assay is 125 Genome Equivalents/mL. A positive result is indicative of the presence of SARS-CoV-2 RNA. ?Clinical correlation with patient history and other diagnostic information is necessary to determine patient infection status. A negative (Not Detected) result does not preclude SARS-CoV-2 infection. In patients with clinical symptoms and other tests that are consistent with SARS-CoV-2 infection, negative results should be treated as presumptive negative and a new specimen should be tested with alternative PCR molecular test. Invalid: Please collect a new specimen for repeat patient testing if clinically indicated. Lab Interpretation Abnormal (test code = 67425-4) [facility] CenterELECTROLYTES2018-10-31 13:23:00 Test Item Value Reference Range Interpretation Comments AGAP (test code = AGAP) 13.6 10.0-20.0 [facility]IJARKDXGUZKZ4622-49-28 13:23:00 Test Item Value Reference Range Interpretation Comments eGFR (test code = eGFR) 94 [facility]CnqakmsYWKTVNWBLBNB4931-48-67 13:23:00 Test Item Value Reference Range Interpretation Comments Creatinine Lvl (test code = Creatinine 0.86 0.50-1.40 Lvl) [facility] HospitalBkswnrtCTQVZAUYYJDA3840-99-62 13:23:00 Test Item Value Reference Range Interpretation Comments Calcium Lvl (test code = Calcium Lvl) 8.7 8.5-10.5 [facility]VwfmircVXWKHFZLQDLF4889-83-95 13:23:00 Test Item Value Reference Range Interpretation Comments CO2 (test code = CO2) 29 24-32 [facility] HospitalKkqosusKKNUVNYWZJXI1341-31-17 13:23:00 Test Item Value Reference Range Interpretation Comments Chloride Lvl (test code = Chloride Lvl) 107 95-109 [facility]OqucyvqLACGBQTQBFWX3691-77-34 13:23:00 Test Item Value Reference Range Interpretation Comments Potassium Lvl (test code = Potassium 4.6 3.5-5.1 Lvl) [facility] HospitalDuhvwgfPJEASOJWMXNJ9378-79-12 13:23:00 Test Item Value Reference Range Interpretation Comments Sodium Lvl (test code = Sodium Lvl) 145 135-145 [facility]FacixhqWZMBDJKPTMUH7412-99-30 13:23:00 Test Item Value Reference Range Interpretation Comments BUN (test code = BUN) 13 7-22 [facility] HospitalJzxpavmDPNDVONRUMEW1445-29-87 13:23:00 Test Item Value Reference Range Interpretation Comments Glucose Lvl (test code = Glucose Lvl) 136 70-99 [facility] IJPMOIZSD1557-01-23 13:23:00 Test Item Value Reference Range Interpretation Comments Hgb A1C (test code = Hgb A1C) 6.6 [facility]
[2022-02-02 12:16] LABS: Absolute Lymphocytes (CBC) 0.3 K/uL (0.7-4.9); Lymphocytes % 3.8 % (15.3-44.8); MPV 10.3 fL (7.6-11.3); RBC Red Blood Cell Count 5.41 M/uL (4.33-5.43)
[2022-02-02] MEDS ORDERED: CEFTRIAXONE 1000 MG/VIAL ONE (12:18)
[2022-02-02] MEDS ORDERED: NA CHLORIDE 0.9% 1,000 ML ONE (12:19)
[2022-02-02 12:31] LABS: Protime INR 1.13
[2022-02-02 12:35] LABS: Albumin 3.7 g/dL (3.4-5.0); Bilirubin Total 1.3 mg/dL (0.2-1.0); Potassium 3.4 mmol/L (3.5-5.1); Protein, Total 7.5 g/dL (6.4-8.2)
[2022-02-02] MEDS ORDERED: ACETAMINOPHEN 500 MG TAB ONE (12:48)
--- NOTE | 2022-02-02 12:48 | RAD REPORT ---
EXAM DESCRIPTION: RAD - Chest Single View - 02/02/2022 12:38 pm CLINICAL HISTORY: COUGH Chest pain. COMPARISON: Chest Pa And Lat (2 Views) dated 01/24/2019; Chest Single View dated 01/24/2019; Chest Pa And Lat (2 Views) dated 08/10/2018; Chest Pa And Lat (2 Views) dated 10/27/2016 FINDINGS: Portable technique limits examination quality. The lungs are grossly clear. The heart is normal in size. No displaced fractures. IMPRESSION: No acute intrathoracic process suspected.
[2022-02-02 12:51] LABS: Urine Blood 2+ (Negative); Urine Glucose Negative (Negative); Urine Protein 1+ (Negative)
--- NOTE | 2022-02-02 13:20 | ER ---
Nurse's Notes [facility] Name: Mathew Nowak Age: 61 yrs Sex: Male : 1960 Arrival Date: 02/02/2022 Time: 11:31 Bed 4 Private MD: Diagnosis: Fever, unspecified;Weakness;Hypokalemia;UTI/ Urinary tract infection, site not specified;Bandemia Presentation: 02/02 11:35 Chief complaint: Patient states: Body aches, chills, fatigue, not feeling well since ll1 last night. EMS states: BGL 146, BP 189/96, temp 100.4. Coronavirus screen: Vaccine status: Patient reports receiving the 2nd dose of the covid vaccine. Client denies travel out of the [place] in the last 14 days. chills, congestion, cough unrelated to allergies, difficulty breathing, fatigue, fever, headache, muscle pain, Client presents with at least one sign or symptom that may indicate coronavirus-19. Standard/surgical mask placed on the client. Ebola Screen: Patient denies travel to an Ebola-affected area in the 21 days before illness onset. Initial Sepsis Screen: Does the patient meet any 2 criteria? Temp <36.0*C (96.8*F)) or > 38.3*C (100.9*F). HR > 90 bpm. No. Patient's initial sepsis screen is negative. Does the patient have a suspected source of infection? Yes: Productive cough/pneumonia. Risk Assessment: Do you want to hurt yourself or someone else? Patient reports no desire to harm self or others. Onset of symptoms was February 01, 2022. 11:35 Method Of Arrival: EMS: [facility] ll1 11:35 Acuity: KEILA 3 ll1 Triage Assessment: 11:38 General: Appears ill, Behavior is cooperative, appropriate for age, Smells of. Neuro: ll1 Reports headache weakness. Respiratory: Reports shortness of breath cough that is. Historical: - Allergies: 11:31 PENICILLINS (Vomiting); ss - PMHx: 11:31 Diabetes - NIDDM; Hyperlipidemia; Hypertension; ss - PSHx: 11:31 Appendectomy; ss - Immunization history:: Client reports receiving the 2nd dose of the Covid vaccine. - Social history:: Smoking status: Patient denies any tobacco usage or history of. Screenin:22 Abuse screen: Denies threats or abuse. Nutritional screening: No deficits noted. ll1 Tuberculosis screening: No symptoms or risk factors identified. Fall Risk IV access (20 points). Gait- Weak (10 pts.). Total Puentes Fall Scale indicates Low Risk Score (25-44 pts). Fall prevention measures have been instituted. Side Rails Up X 2 Placed close to Nursing Station Frequent Obs/Assesments occuring Family Present and informed to notify staff if they need to leave bedside As available Patient and Family Educated on Fall Prevention Program and strategies. Assessment: 12:30 Reassessment: No changes from previously documented assessment. Patient and/or family ll1 updated on plan of care and expected duration. Pain level reassessed. 13:23 Reassessment: No changes from previously documented assessment. Patient and/or family ll1 updated on plan of care and expected duration. Pain level reassessed. 13:59 Reassessment: No changes from previously documented assessment. Patient and/or family ll1 updated on plan of care and expected duration. Pain level reassessed. Pain: Denies pain. 15:00 Reassessment: No changes from previously documented assessment. Patient and/or family ll1 updated on plan of care and expected duration. Pain level reassessed. Patient is alert, oriented x 3, equal unlabored respirations, skin warm/dry/pink. 15:50 Reassessment: No changes from previously documented assessment. Patient and/or family ll1 updated on plan of care and expected duration. Pain level reassessed. Patient is alert, oriented x 3, equal unlabored respirations, skin warm/dry/pink. 16:25 Reassessment: No changes from previously documented assessment. Patient and/or family ll1 updated on plan of care and expected duration. Pain level reassessed. Patient is alert, oriented x 3, equal unlabored respirations, skin warm/dry/pink. Vital Signs: 11:35 BP 156 / 75; Pulse 98; Resp 20; Temp 101.2; Pulse Ox 96% on R/A; ll1 12:30 BP 144 / 68; Pulse 92; Resp 14 S; Pulse Ox 97% on R/A; jg9 13:59 BP 106 / 43; Pulse 89; Resp 19; Temp 97.9; Pulse Ox 96% on R/A; ll1 15:49 BP 97 / 57; Pulse 75; Resp 21; Pulse Ox 98% on R/A; ll1 16:22 BP 102 / 63; Pulse 78; Resp 20; Pulse Ox 99% on R/A; ll1 ED Course: 11:31 Patient arrived in ED. ss 11:37 Triage completed. ll1 11:37 Missael Gifford MD is Attending Physician. shreya 11:38 Iraj Caballero RN is Primary Nurse. ll1 11:38 Arm band placed on Patient placed in an exam room, on a stretcher. ll1 12:00 Inserted saline lock: 22 gauge in right antecubital area, using aseptic technique. ll1 Blood collected. 12:40 Chest Single View XRAY In Process Unspecified. EDMS 12:54 Urine Microscopic Only Sent. ll1 13:12 Tha Acuna is Hospitalizing Provider. [facility] 13:22 Patient has correct armband on for positive identification. Bed in low position. Call ll1 light in reach. Side rails up X2. Client placed on continuous cardiac and pulse oximetry monitoring. NIBP monitoring applied. 13:31 CT Stone Protocol In Process Unspecified. EDMS 13:31 CT Head Brain wo Cont In Process Unspecified. EDMS 16:29 No provider procedures requiring assistance completed. Patient admitted, IV remains in ll1 place. Administered Medications: 12:18 Drug: NS 0.9% 1000 ml Route: IV; Rate: 1 bolus; Site: right antecubital; [facility] 13:21 Follow up: Response: No adverse reaction; IV Status: Completed infusion; IV Intake: ll1 1000ml 12:18 Drug: Rocephin (cefTRIAXone) 1 grams Route: IV; Rate: per protocol; Site: right ll1 antecubital; 13:22 Follow up: Response: No adverse reaction; IV Status: Completed infusion; IV Intake: 50twwe1 12:45 Drug: Tylenol 1000 mg Route: PO; ll1 14:00 Follow up: Response: No adverse reaction 1 13:01 Not Given (Duplicate Order): Rocephin (cefTRIAXone) 1 grams IV at per protocol once; ll1 Given slow IV push per pharmacy instructions 13:55 Drug: Potassium Effervescent Tablet 25 mEq Route: PO; 1 15:45 Follow up: Response: No adverse reaction [facility] Medication: 13:22 VIS not applicable for this client. ll1 Intake: 13:21 IV: 1000ml; Total: 1000ml. ll1 13:22 IV: 10ml; Total: 1010ml. ll1 Outcome: 13:19 Decision to Hospitalize by Provider. shreya 16:29 Admitted to Tele accompanied by tech, via wheelchair, room 218, with chart, Report ll1 called to Natalya Koo RN 16:29 Condition: stable 16:29 Instructed on the need for admit. 16:51 Patient left the ED. ll1 Signatures: Dispatcher [employer] EDMissael Cortez MD MD cha Smirch, Shelby, RN RN Iraj Crews RN RN ll1 Jeri Trejo RN RN jg9
--- NOTE | 2022-02-02 13:20 | EDPHYS ---
Physician Documentation [facility] Name: Mathew Nowak Age: 61 yrs Sex: Male : 1960 Arrival Date: 02/02/2022 Time: 11:31 Bed 4 Private MD: ED Physician Missael Gifford HPI: 02/02 12:07 This 61 yrs old Male presents to ER via EMS with complaints of Fever. shreya 12:07 The patient reports fever, that was measured at 101.2 degrees Fahrenheit. shreya Historical: - Allergies: 11:31 PENICILLINS (Vomiting); ss - PMHx: 11:31 Diabetes - NIDDM; Hyperlipidemia; Hypertension; ss - PSHx: 11:31 Appendectomy; ss - Immunization history:: Client reports receiving the 2nd dose of the Covid vaccine. - Social history:: Smoking status: Patient denies any tobacco usage or history of. ROS: 12:09 Eyes: Negative for injury, pain, redness, and discharge, ENT: Negative for injury, shreya pain, and discharge, Neck: Negative for injury, pain, and swelling, Cardiovascular: Negative for chest pain, palpitations, and edema, Abdomen/GI: Negative for abdominal pain, nausea, vomiting, diarrhea, and constipation, Back: Negative for injury and pain, MS/Extremity: Negative for injury and deformity, Skin: Negative for injury, rash, and discoloration, Psych: Negative for depression, anxiety, suicide ideation, homicidal ideation, and hallucinations, Allergy/Immunology: Negative for hives, rash, and allergies, Endocrine: Negative for neck swelling, polydipsia, polyuria, polyphagia, and marked weight changes. 12:09 Constitutional: Positive for chills, fatigue, fever, malaise. 12:09 Respiratory: Positive for cough, with no reported sputum. 12:09 : Positive for burning with urination, difficulty urinating. 12:09 Neuro: Positive for weakness. Exam: 12:09 Head/Face: Normocephalic, atraumatic. Eyes: Pupils equal round and reactive to light, shreya extra-ocular motions intact. Lids and lashes normal. Conjunctiva and sclera are non-icteric and not injected. Cornea within normal limits. Periorbital areas with no swelling, redness, or edema. ENT: Nares patent. No nasal discharge, no septal abnormalities noted. Tympanic membranes are normal and external auditory canals are clear. Oropharynx with no redness, swelling, or masses, exudates, or evidence of obstruction, uvula midline. Mucous membranes moist. Neck: Trachea midline, no thyromegaly or masses palpated, and no cervical lymphadenopathy. Supple, full range of motion without nuchal rigidity, or vertebral point tenderness. No Meningismus. Chest/axilla: Normal chest wall appearance and motion. Nontender with no deformity. No lesions are appreciated. Cardiovascular: Regular rate and rhythm with a normal S1 and S2. No gallops, murmurs, or rubs. Normal PMI, no JVD. No pulse deficits. Abdomen/GI: Soft, non-tender, with normal bowel sounds. No distension or tympany. No guarding or rebound. No evidence of tenderness throughout. Back: No spinal tenderness. No costovertebral tenderness. Full range of motion. Male : Normal genitalia with no discharge or lesions. Skin: Warm, dry with normal turgor. Normal color with no rashes, no lesions, and no evidence of cellulitis. MS/ Extremity: Pulses equal, no cyanosis. Neurovascular intact. Full, normal range of motion. Neuro: Awake and alert, GCS 15, oriented to person, place, time, and situation. Cranial nerves II-XII grossly intact. Motor strength 5/5 in all extremities. Sensory grossly intact. Cerebellar exam normal. Normal gait. Psych: Awake, alert, with orientation to person, place and time. Behavior, mood, and affect are within normal limits. 12:09 Constitutional: The patient appears febrile. 12:09 Respiratory: the patient does not display signs of respiratory distress, Respirations: normal, Breath sounds: decreased breath sounds, that are mild, are located in both bases, Respiratory rate: 98 12:13 Neck: ROM/movement: is normal, no acute changes, limited range of motion, is not shreya appreciated, Meningeal signs: are not present, Kernig's sign is negative, Brudzinski's sign is negative, nuchal rigidity, is not appreciated. 12:13 ECG was reviewed by the Attending Physician. Vital Signs: 11:35 BP 156 / 75; Pulse 98; Resp 20; Temp 101.2; Pulse Ox 96% on R/A; ll1 12:30 BP 144 / 68; Pulse 92; Resp 14 S; Pulse Ox 97% on R/A; jg9 13:59 BP 106 / 43; Pulse 89; Resp 19; Temp 97.9; Pulse Ox 96% on R/A; ll1 15:49 BP 97 / 57; Pulse 75; Resp 21; Pulse Ox 98% on R/A; ll1 16:22 BP 102 / 63; Pulse 78; Resp 20; Pulse Ox 99% on R/A; ll1 MDM: 11:37 Patient medically screened. [facility] 12:12 Differential diagnosis: viral Infection, bacterial infection, URI, bronchitis, shreya pneumonia UTI, gastroenteritis. Data reviewed: vital signs, nurses notes, lab test result(s), EKG, radiologic studies, plain films. Data interpreted: packager: rate is 98 beats/min, rhythm is regular, Pulse oximetry: on room air is 96 %. Test interpretation: by ED physician or midlevel provider: plain radiologic studies. Counseling: I had a detailed discussion with the patient and/or guardian regarding: the historical points, exam findings, and any diagnostic results supporting the discharge/admit diagnosis, lab results, radiology results. 02/02 11:59 Order name: Blood Culture Adult (2) [facility] 02/02 11:59 Order name: CBC with Diff; Complete Time: 15:32 [facility] 02/02 11:59 Order name: CMP; Complete Time: 12:51 [facility] 02/02 11:59 Order name: Lactate; Complete Time: 12:51 [facility] 02/02 11:59 Order name: Protime (+inr); Complete Time: 12:51 [facility] 02/02 11:59 Order name: Ptt, Activated; Complete Time: 12:51 [facility] 02/02 11:59 Order name: Flu; Complete Time: 13:32 [facility] 02/02 12:02 Order name: BNP; Complete Time: 13:09 [facility] 02/02 12:04 Order name: Urine Culture [facility] 02/02 12:29 Order name: CBC Smear Scan; Complete Time: 15:32 [facility] 02/02 12:42 Order name: SARS-COV-2 RT PCR; Complete Time: 14:07 [facility] 02/02 12:50 Order name: Urine Microscopic Only; Complete Time: 13:32 [facility] 02/02 11:59 Order name: Accucheck; Complete Time: 14:06 [facility] 02/02 11:59 Order name: Cardiac monitoring; Complete Time: 11:59 1 02/02 11:59 Order name: EKG - Nurse/Tech; Complete Time: 11:59 [facility] 02/02 11:59 Order name: IV Saline Lock - Large Bore; Complete Time: 11:59 1 02/02 11:59 Order name: Labs collected and sent; Complete Time: 11:59 [facility] 02/02 12:02 Order name: Chest Single View XRAY; Complete Time: 12:51 shreya 02/02 12:51 Order name: Urine Dipstick-Ancillary; Complete Time: 13:00 EDMS 02/02 12:55 Order name: CT Stone Protocol; Complete Time: 14:07 shreya 02/02 13:24 Order name: CT Head Brain wo Cont; Complete Time: 14:07 eb 02/02 15:10 Order name: Manual Differential; Complete Time: 15:32 EDMS 02/02 11:59 Order name: O2 Per Protocol; Complete Time: 11:59 [facility] 02/02 11:59 Order name: O2 Sat Monitoring; Complete Time: 11:59 [facility] 02/02 12:04 Order name: Urine Dipstick-Ancillary (obtain specimen); Complete Time: 12:54 shreya EC:13 Rate is 93 beats/min. Rhythm is regular. QRS [place] is Normal. [place] interval is normal. QRS shreya interval is normal. QT interval is normal. No Q waves. T waves are Normal. No ST changes noted. Clinical impression: NSR w/ Non-specific ST/T Changes and No evidence of ischemia. Interpreted by me. Reviewed by me. Administered Medications: 12:18 Drug: NS 0.9% 1000 ml Route: IV; Rate: 1 bolus; Site: right antecubital; ll1 13:21 Follow up: Response: No adverse reaction; IV Status: Completed infusion; IV Intake: ll1 1000ml 12:18 Drug: Rocephin (cefTRIAXone) 1 grams Route: IV; Rate: per protocol; Site: right ll1 antecubital; 13:22 Follow up: Response: No adverse reaction; IV Status: Completed infusion; IV Intake: [id number] 12:45 Drug: Tylenol 1000 mg Route: PO; ll1 14:00 Follow up: Response: No adverse reaction 1 13:01 Not Given (Duplicate Order): Rocephin (cefTRIAXone) 1 grams IV at per protocol once; ll1 Given slow IV push per pharmacy instructions 13:55 Drug: Potassium Effervescent Tablet 25 mEq Route: PO; ll1 15:45 Follow up: Response: No adverse reaction ll1 Disposition Summary: 02/02/22 13:19 Hospitalization Ordered Hospitalization Status: Observation shreya Provider: Tha Acuna cha Location: Telemetry/MedSurg (observation) shreya Condition: Fair shreya Problem: new shreya Symptoms: have improved shreya Bed/Room Type: Standard [facility] Room Assignment: 218(02/02/22 16:20) dw Diagnosis - Fever, unspecified shreya - Weakness shreya - Hypokalemia shreya - UTI/ Urinary tract infection, site not specified shreya - Bandemia shreya Forms: - Medication Reconciliation Form shreya - SBAR form shreya Signatures: Dispatcher [employer] EDMS Renetta Mcclure RN RN Missael Albarado MD MD cha Smirch, Shelby, RN RN ss Lewis, Lynsay, RN RN ll1 Corrections: (The following items were deleted from the chart) 12:42 12:01 Influenza Screen (A \T\ B)+[id number].LAB.BRZ ordered. EDMS EDMS 16:20 13:19 shreya dw
[2022-02-02 13:23] LABS: Urine Bacteria 20-50 /HPF (NONE SEEN); Urine Urothelial Cells <5 /HPF (NONE SEEN)
[2022-02-02] MEDS ORDERED: POTASSIUM 25 MEQ EFFERV TAB ONE (13:30)
--- NOTE | 2022-02-02 13:53 | RAD REPORT ---
EXAM DESCRIPTION: CT - Head Brain Wo Cont - 02/02/2022 1:29 pm CLINICAL HISTORY: Altered mental status Headache, drowsiness COMPARISON: No comparisons TECHNIQUE: All CT scans are performed using dose optimization technique as appropriate and may inclu de automated exposure control or mA/KV adjustment according to patient size. FINDINGS: No intracranial hemorrhage, hydrocephalus or extra-axial fluid collection.No areas of brai n edema or evidence of midline shift. The paranasal sinuses and mastoids are clear. The calvarium is intact. IMPRESSION: No acute intracranial abnormality.
--- NOTE | 2022-02-02 13:55 | RAD REPORT ---
EXAM DESCRIPTION: CT - Stone Protocol - 02/02/2022 1:29 pm CLINICAL HISTORY: Flank pain. Flank pain, kidney stone suspected COMPARISON: Abdomen Pelvis W Contrast dated 05/28/2021 TECHNIQUE: Axial images were obtained without oral or IV contrast. Lack of contrast limits solid org an and vascular assessment. The [id number] spans the entirety of the system partially obscuring uppermost abdomen and lung bases. Coronal reformatted images were obtained and reviewed. All CT scans are performed using dose optimization technique as appropriate and may include automated exposure control or mA/KV adjustment according to patient size. FINDINGS: The lower lung bryant are clear. Mild fatty liver. The spleen is normal sized. The pancreas and adrenal glands are normal. No patholog ic lymphadenopathy in the abdomen or pelvis. No urinary tract stones or obstructive uropathy. No bowel obstruction, free air, free fluid or abscess. Prominent sigmoid diverticulosis without diver ticulitis seen.The appendix is not identified as a discrete structure, however, no secondary findings of appendicitis are identified. No significant bony abnormality. IMPRESSION: No urinary tract stones or obstructive uropathy. Sigmoid diverticulosis coli without diverticulitis.
[2022-02-02 15:09] LABS: White Blood Cell Scan DIFF (OK)
[2022-02-02 15:10] LABS: Blood Morphology Comment NOT SEEN (NOT SEEN); Platelet Estimate ADEQ
--- NOTE | 2022-02-02 15:11 | P.HP ---
Certification for Inpatient Patient admitted to: Inpatient With expected LOS: >2 Midnights Practitioner: I am a practitioner with admitting privileges, knowledge of patient current condition, hospital course, and medical plan of care. Services: Services provided to patient in accordance with Admission requirements found in Title 42 Section 412.3 of the Code of Federal Regulations Patient History Date of Service: 02/02/22 Reason for admission: Fever and chills History of Present Illness: 61-year-old gentleman with a history of hypertension and prediabetes presented to the emergency department due to fever and chills of 1 day duration. Patient stated he developed rigors at [employer] today and therefore presented to the ED. Work-up in the ED revealed UTI. Patient also meets criteria for sepsis with fever and tachycardia, no leukocytosis. CT abdomen pelvis is unremarkable, no kidney stones or obstructive uropathy. He has sigmoid diverticulosis without evidence of diverticulitis. He denied any flank pain but endorsed dysuria and increased urinary frequency. Patient given IV Rocephin and IV fluid. He is admitted for further management. Allergies Penicillins Allergy (Verified 10/26/16 18:19) Unknown Home Medications: Aspirin [Aspirin EC 81 MG] 2 tab PO DAILY 05/29/21 Carvedilol [Coreg] 12.5 mg PO DAILY 05/29/21 Losartan Potassium 100 mg PO DAILY 05/29/21 Metformin HCl [Metformin HCl ER] 750 mg PO DAILY 05/29/21 Rosuvastatin Calcium 5 mg PO DAILY 05/29/21 Ciprofloxacin HCl [Cipro 500 MG Tablet] 500 mg PO BID #20 tab 05/30/21 Famotidine [Pepcid] 20 mg PO BID #60 tab 05/30/21 metroNIDAZOLE [Flagyl] 500 mg PO Q8H #30 tablet 05/30/21 - Past Medical/Surgical History Diabetic: No -: Hypertension -: Obesity -: Diabetes type 2 -: Hypertension -: Appendectomy -: Left inguinal hernia repair Psychosocial/ Personal History: The patient is , has 3 children. 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 Except as documented, all other systems reviewed and negative. Physical Examination - Physical Exam General: Alert, In no apparent distress, Oriented x3, Obese HEENT: Atraumatic, Normocephalic, Mucous membr. moist/pink, EOMI, Sclerae nonicteric Neck: Supple, JVD not distended Respiratory: Clear to auscultation bilaterally, Normal air movement Cardiovascular: No edema, Regular rate/rhythm, Normal S1 S2 Capillary refill: <2 Seconds Gastrointestinal: Normal bowel sounds, Soft and benign, Non-distended, No tenderness, Other (No flank tenderness.) Musculoskeletal: No swelling, No tenderness Integumentary: No rashes, No erythema Neurological: Normal speech, Normal strength at 5/5 x4 extr, Cranial nerves 3-12 intact Lymphatics: No axilla or inguinal lymphadenopathy - Studies Laboratory Data (last 24 hrs) 02/02/22 12:00: PT 12.5, INR 1.13, APTT 26.2 02/02/22 12:00: Sodium 134 L, Potassium 3.4 L, BUN 18, Creatinine 0.96, Glucose 129 H, Total Bilirubin 1.3 H, AST 13 L, ALT 49, Alkaline Phosphatase 64 02/02/22 12:00: WBC 8.0, Hgb 15.5, Hct 46.0, Plt Count 119 L Microbiology Data (last 24 hrs): 02/02/22 11:59 Nasopharnyx Influenza Type A Antigen Screen - Final 02/02/22 11:59 Nasopharnyx Influenza Type B Antigen Screen - Final Assessment and Plan - Problems (Diagnosis) (1) Sepsis Current Visit: Yes Status: Acute (2) UTI (urinary tract infection) Current Visit: Yes Status: Acute (3) Diabetes mellitus type 2 in obese Current Visit: Yes Status: Acute - Plan Admit to the medical floor. Sepsis protocol initiated. Noted allergy to penicillin with facial and lip swelling. Start IV Levaquin. Follow cultures obtained in the ED. Hydrate with IV normal saline. Insulin sliding scale for glucose management. Hold antihypertensives. Monitor and correct electrolytes as needed. - Advance Directives Does patient have a Living Will: No Does patient have a Durable POA for Healthcare: No
--- NOTE | 2022-02-02 15:12 | P.INFCA ---
Sepsis Focused Assessment - Focused Assessment Complete? Sepsis Focused Assessment Completed?: Yes - Sepsis Screen Result Severe Sepsis: Positive Septic Shock: Negative - Evaluation Current stage of sepsis: Severe sepsis - Vital Signs Reviewed: Yes Temperature: 100.9 F - Examination Heart: Regular rate/rhythm, S1, S2 Lungs: Clear bilaterally Peripheral pulses: 3+ Normal Peripheral pulse location: Radial Capillary refill: <2 Seconds Skin examination: Normal turgor
[2022-02-02] MEDS ORDERED: NA CHLORIDE 0.9% 500 ML IV ONE (16:27)
[2022-02-02] MEDS ORDERED: D50W 25 GM/50 ML SYRINGE IV PRN (16:27)
[2022-02-02] MEDS ORDERED: ONDANSETRON 4 MG/2 ML VIAL IV PRN (16:27)
[2022-02-02] MEDS ORDERED: GLUCAGON 1 MG/VIAL IM PRN (16:27)
[2022-02-02] MEDS ORDERED: Levofloxacin 750mg IV 750 MG/150 ML BAG IV SCH (16:27)
[2022-02-02] MEDS: INSULIN -REGULAR HUMAN 50 UNIT/0.5 ML ML SQ SCH ×2 (16:30→21:00)
[2022-02-02] MEDS ORDERED: D10W 125 ML IV PRN (16:46)
[2022-02-02] MEDS: ACETAMINOPHEN 500 MG TAB PO PRN (17:20)
[2022-02-02] MEDS: NA CHLORIDE 0.9% 1,000 ML IV SCH (17:21)
[2022-02-03] MEDS: NA CHLORIDE 0.9% 1,000 ML IV SCH ×3 (02:27→23:57)
[2022-02-03 06:17] LABS: Absolute Lymphocytes (CBC) 0.7 K/uL (0.7-4.9); Hematocrit 39.7 % (39.6-49.0); Lymphocytes % 2.8 % (15.3-44.8); MPV 11.2 fL (7.6-11.3)
[2022-02-03 06:27] LABS: Albumin 2.8 g/dL (3.4-5.0); Bilirubin Total 2.3 mg/dL (0.2-1.0); Magnesium 1.5 mg/dL (1.8-2.4); Phosphorus 3.8 mg/dL (2.5-4.9); Potassium 4.1 mmol/L (3.5-5.1); Protein, Total 6.5 g/dL (6.4-8.2)
[2022-02-03] MEDS: INSULIN -REGULAR HUMAN 50 UNIT/0.5 ML ML SQ SCH ×4 (07:30→21:05)
[2022-02-03 07:46] LABS: Platelet Estimate DECR
[2022-02-03 07:47] LABS: Anisocytosis 1+; Blood Morphology Comment NOTED (NOT SEEN); Macrocytosis 1+; Platelets, Giant FEW
[2022-02-03] MEDS: ACETAMINOPHEN 500 MG TAB PO PRN ×3 (08:16→18:12)
[2022-02-03] MEDS: ENOXAPARIN 40 MG/0.4 ML SQ SCH (08:17)
[2022-02-03] MEDS ORDERED: Magnesium Sulfate 2gm IVPB 2 G/50 ML BAG IV ONE (10:38)
[2022-02-03] MEDS: PHENAZOPYRIDINE 100MG TAB PO PRN (11:01)
--- NOTE | 2022-02-03 11:49 | P.PN ---
Subjective Date of Service: 02/03/22 Chief Complaint: Fever and chills The patient is a 61-year-old male with a past medical history of hypertension and diabetes who presented to the emergency department secondary to dysuria, fever, chills, lower back and abdominal pain, and difficulty with urination that has been present for 1 day. In ED urinalysis was grossly positive, urine culture pending. Preliminary blood cultures growing gram-negative rods. CT abdomen and pelvis was negative for any obstructive uropathy or acute kidney stones. Sepsis criteria was met in the emergency department, patient was admitted for further management. Patient had a spike in WBC today, WBC currently 24.8. Patient also developed acute kidney injury with a creatinine of 1.35. Patient transition from IV Levaquin to IV azactam. He currently denies shortness of breath, chest pain, nausea, vomiting. He reports diarrhea that beg an last night as well as lower back/abdominal pain. Review of Systems 10-point ROS is otherwise unremarkable Physical Examination - Vital Signs Temperature: 99.5 F Blood Pressure: 131/65 Pulse: 71 Respirations: 17 Pulse Ox (%): 98 - Physical Exam General: Alert, In no apparent distress, Oriented x3, Obese HEENT: Atraumatic, Normocephalic Neck: Supple Respiratory: Normal air movement Cardiovascular: Normal pulses, Regular rate/rhythm Capillary refill: <2 Seconds Gastrointestinal: Normal bowel sounds, Soft and benign Musculoskeletal: No clubbing, No swelling, No contractures Integumentary: No rashes, No breakdown, No significant lesion - Studies Laboratory Data (last 24 hrs) 02/02/22 12:00: PT 12.5, INR 1.13, APTT 26.2 02/02/22 12:00: Sodium 134 L, Potassium 3.4 L, BUN 18, Creatinine 0.96, Glucose 129 H, Total Bilirubin 1.3 H, AST 13 L, ALT 49, Alkaline Phosphatase 64 02/02/22 12:00: WBC 8.0, Hgb 15.5, Hct 46.0, Plt Count 119 L Microbiology Data (last 24 hrs): 02/02/22 12:00 Blood - Blood Blood Culture Gram Stain - Final 02/02/22 12:00 Blood - Blood Gram Stain - Final 02/02/22 12:15 Blood - Blood Blood Culture Gram Stain - Final 02/02/22 12:15 Blood - Blood Gram Stain - Final 02/02/22 11:59 Nasopharnyx Influenza Type A Antigen Screen - Final 02/02/22 11:59 Nasopharnyx Influenza Type B Antigen Screen - Final Assessment And Plan - Plan Antibiotics: Azactam: 02/03-current Levaquin: Assessment/plan Urosepsis Urinalysis grossly positive, urine culture pending Preliminary blood cultures growing gram-negative rods, awaiting speciation/liang ceptibility. Patient was on Levaquin however had increase in WBC today, as such Levaquin discontinued and azactam started. -CT abdomen pelvis negative for stone/obstructive uropathy. Patient denies history of BPH. Recommend outpatient follow-up with urology Leukocytosis with bandemia Continue to monitor closely. Antibiotics adjusted. Prediabetes, hypertension Medical management per primary team Plan of care discussed with Dr. Blair Thank you for consultation
[2022-02-03] MEDS: HYDROCODONE/APAP 5/325 MG TAB PO PRN (12:40)
--- NOTE | 2022-02-03 13:22 | EKG ---
Test Date: 2022-02-02 Test Time: 12:01:47 Compactor Driver: ERIN MEASUREMENT RESULTS: Intervals: Rate: 93 [place]: 178 QRSD: 102 QT: 390 QTc: 484 [place]: P: 52 [place]: 178 QRS: 242 T: 56 INTERPRETIVE STATEMENTS: Normal sinus rhythm Right superior axis deviation Cannot rule out Anterior infarct, age undetermined Abnormal ECG Compared to ECG 04/30/2020 10:50:33 Right superior axis now present Left-axis deviation no longer present Myocardial infarct finding still present Electronically Signed On 02-03-22 13:19:30 CDT by Leonardo Fuentes
[2022-02-03] MEDS ORDERED: HYDROMORPHONE HCL 1 MG/ML INJ IV PRN (14:21)
[2022-02-03] MEDS: AZTREONAM 1 GM in NA CHLORIDE 0.9% 100 ML IV SCH (16:01)
--- NOTE | 2022-02-03 17:11 | P.PN ---
Subjective Date of Service: 02/03/22 Chief Complaint: Fever and chills Patient complaining of headache. He also reports persistent dysuria. He is experiencing intermittent fever. Physical Examination - Vital Signs Temperature: 100.1 F Blood Pressure: 152/81 Pulse: 75 Respirations: 18 Pulse Ox (%): 95 - Physical Exam General: Alert, In no apparent distress, Oriented x3 HEENT: Mucous membr. moist/pink Neck: JVD not distended Respiratory: Clear to auscultation bilaterally, Normal air movement Cardiovascular: No edema, Regular rate/rhythm, Normal S1 S2 Gastrointestinal: Normal bowel sounds, Soft and benign, Non-distended Musculoskeletal: No swelling Integumentary: No rashes Neurological: Normal strength at 5/5 x4 extr - Studies Microbiology Data (last 24 hrs): 02/02/22 12:00 Blood - Blood Blood Culture Gram Stain - Final 02/02/22 12:00 Blood - Blood Gram Stain - Final 02/02/22 12:15 Blood - Blood Blood Culture Gram Stain - Final 02/02/22 12:15 Blood - Blood Gram Stain - Final 02/02/22 11:59 Nasopharnyx Influenza Type A Antigen Screen - Final 02/02/22 11:59 Nasopharnyx Influenza Type B Antigen Screen - Final Assessment And Plan - Current Problems (Diagnosis) (1) Sepsis Current Visit: Yes Status: Acute (2) UTI (urinary tract infection) Current Visit: Yes Status: Acute (3) Diabetes mellitus type 2 in obese Current Visit: Yes Status: Acute (4) Gram-negative bacteremia Current Visit: Yes Status: Acute - Plan Blood cultures are growing gram-negative rods Noted allergy to penicillin with anaphylaxis. Patient has no responded to Levaquin yet as he has severe leukocytosis today and still experiencing fever. Change Levaquin to Azactam. Follow culture Continue IV normal saline. Diet as tolerated. Supportive measures with pain management, phenazopyridine for dysuria. Insulin sliding scale for glucose management. Resume antihypertensives once systolic blood pressure has been consistently greater than 140. Monitor and correct electrolytes as needed. Head CT to evaluate his refractory headache.
[2022-02-03 23:13] VITALS: O2SAT 97
[2022-02-04] MEDS: AZTREONAM 1 GM in NA CHLORIDE 0.9% 100 ML IV SCH ×3 (00:23→17:02)
[2022-02-04] MEDS: HYDROCODONE/APAP 5/325 MG TAB PO PRN (03:36)
[2022-02-04] MEDS ORDERED: DOCUSATE NA 100 MG CAP PO ONE (03:56)
[2022-02-04] MEDS ORDERED: DIPHENHYDRAMINE 50 MG/ML VIAL IV ONE (05:27)
[2022-02-04] MEDS ORDERED: DIPHENHYDRAMINE 50 MG/ML VIAL ONE (05:40)
[2022-02-04 05:43] LABS: Absolute Lymphocytes (CBC) 0.8 K/uL (0.7-4.9); Hematocrit 39.6 % (39.6-49.0); Lymphocytes % 5.3 % (15.3-44.8); MPV 11.7 fL (7.6-11.3); RBC Red Blood Cell Count 4.67 M/uL (4.33-5.43)
[2022-02-04 06:02] LABS: Albumin 2.5 g/dL (3.4-5.0); Bilirubin Direct 0.4 mg/dL (0-0.2); Bilirubin Total 0.9 mg/dL (0.2-1.0); Magnesium 2.5 mg/dL (1.8-2.4); Potassium 3.3 mmol/L (3.5-5.1); Protein, Total 6.4 g/dL (6.4-8.2)
--- NOTE | 2022-02-04 06:44 | P.PN ---
Date of Service: 02/04/22 Subjective: improving, still with dysuria but better fever last night no new symptoms/concerns ROS: 10 point ROS as noted above, otherwise negative Physical exam GEN: Alert, oriented, NAD HEENT: Normal conjunctiva, sclera anicteric CV: Regular rate and rhythm, no edema Pulm: Nonlabored respirations on room air ABD: Soft, nontender, nondistended Neuro: Normal speech, normal affect Problem List sepsis secondary to UTI, with GNR bacteremia HTN Pre-DM2 blood: proteus x4 didnt improve on levaquin, changed to aztreonam; ID consulted Follow up cultures appetite improved; BP improved; dc IVF diet as tolerated pain meds for dysuria insulin sliding scare resume home meds leukocytosis improved Dispo: home, ~2 days Time Spent Managing Pts Care (In Minutes): 35
[2022-02-04] MEDS: INSULIN -REGULAR HUMAN 50 UNIT/0.5 ML ML SQ SCH ×4 (07:30→21:46)
[2022-02-04] MEDS ORDERED: POTASSIUM 25 MEQ EFFERV TAB PO ONE (07:44)
[2022-02-04 08:06] LABS: Blood Morphology Comment NOT SEEN (NOT SEEN); Platelet Estimate DECR; White Blood Cell Scan OK (OK)
[2022-02-04] MEDS: ENOXAPARIN 40 MG/0.4 ML SQ SCH (09:10)
[2022-02-04] MEDS: NA CHLORIDE 0.9% 1,000 ML IV SCH (09:11)
[2022-02-04] MEDS: PHENAZOPYRIDINE 100MG TAB PO PRN ×2 (09:17→21:47)
--- NOTE | 2022-02-04 13:59 | P.PN ---
Subjective Date of Service: 02/04/22 Chief Complaint: Fever and chills Patient seen and examined at bedside, doing much better today. WBC downtrending. Blood cultures growing. Proteus mirabilis, pansensitive. Patient however does complain of some burning/itching sensation around his mouth. He was given Benadryl. Review of Systems 10-point ROS is otherwise unremarkable Physical Examination - Vital Signs Temperature: 97.3 F Blood Pressure: 144/77 Pulse: 69 Respirations: 18 Pulse Ox (%): 94 - Studies Laboratory Last Values WBC 8.0 K/uL (4.3-10.9) 02/02/22 12:00 RBC 5.41 M/uL (4.33-5.43) 02/02/22 12:00 Hgb 15.5 g/dL (13.6-17.9) 02/02/22 12:00 Hct 46.0 % (39.6-49.0) 02/02/22 12:00 MCV 85.0 fL (80-100) 02/02/22 12:00 MCH 28.5 pg (27.0-35.0) 02/02/22 12:00 MCHC 33.6 g/dL (32.0-36.0) 02/02/22 12:00 RDW 14.2 % (12.1-15.2) 02/02/22 12:00 Plt Count 119 K/uL (152-406) L 02/02/22 12:00 MPV 10.3 fL (7.6-11.3) 02/02/22 12:00 Neutrophils % 95.2 % (41.7-73.7) H 02/02/22 12:00 Lymphocytes % 3.8 % (15.3-44.8) L 02/02/22 12:00 Monocytes % 0.7 % (3.3-12.3) L 02/02/22 12:00 Eosinophils % 0.1 % (0-4.4) 02/02/22 12:00 Basophils % 0.2 % (0-1.3) 02/02/22 12:00 Absolute Neutrophils 7.6 K/uL (1.8-8.0) 02/02/22 12:00 Segmented Neutrophils 83 % (40-80) H 02/02/22 12:00 Band Neutrophils 8 % (0-1) H 02/02/22 12:00 Absolute Lymphocytes 0.3 K/uL (0.7-4.9) L 02/02/22 12:00 Lymphocytes 8 % (15-42) L 02/02/22 12:00 Monocytes 0 % (0-10) 02/02/22 12:00 Absolute Monocytes 0.1 K/uL (0.1-1.3) 02/02/22 12:00 Eosinophils 1 % (0-3) 02/02/22 12:00 Absolute Eosinophils 0.0 K/uL (0-0.5) 02/02/22 12:00 Absolute Basophils 0.0 K/uL (0-0.5) 02/02/22 12:00 Platelet Estimate Adeq 02/02/22 12:00 Morphology Comment Not seen (NOT SEEN) 02/02/22 12:00 PT 12.5 SECONDS (9.5-12.5) 02/02/22 12:00 INR 1.13 02/02/22 12:00 APTT 26.2 SECONDS (24.3-36.9) 02/02/22 12:00 Sodium 134 mmol/L (136-145) L 02/02/22 12:00 Potassium 3.4 mmol/L (3.5-5.1) L 02/02/22 12:00 Chloride 100 mmol/L (98-107) 02/02/22 12:00 Carbon Dioxide 24 mmol/L (21-32) 02/02/22 12:00 Anion Gap 13.4 mEq/L (5.0-15.0) 02/02/22 12:00 BUN 18 mg/dL (7-18) 02/02/22 12:00 Creatinine 0.96 mg/dL (0.55-1.3) 02/02/22 12:00 Est GFR (CKD-EPI) 89 ml/min (=/>90) L 02/02/22 12:00 Glucose 129 mg/dL (74-106) H 02/02/22 12:00 Lactic Acid 1.8 mmol/L (0.4-2.0) 02/02/22 12:00 Calcium 8.5 mg/dL (8.5-10.1) 02/02/22 12:00 Total Bilirubin 1.3 mg/dL (0.2-1.0) H 02/02/22 12:00 AST 13 U/L (15-37) L 02/02/22 12:00 ALT 49 U/L (12-78) 02/02/22 12:00 Alkaline Phosphatase 64 U/L (45-117) 02/02/22 12:00 NT-Pro-B Natriuret Pep 193 pg/mL (<125) H 02/02/22 12:00 Serum Total Protein 7.5 g/dL (6.4-8.2) 02/02/22 12:00 Albumin 3.7 g/dL (3.4-5.0) 02/02/22 12:00 Globulin 3.8 g/dL (2.3-3.5) H 02/02/22 12:00 Albumin/Globulin Ratio 1.0 (1.1-1.8) L 02/02/22 12:00 Urine pH 7.0 (5.0-7.0) 02/02/22 12:47 Ur Specific [place] 1.020 (1.005-1.030) 02/02/22 12:47 Glucose (UA)(Auto) Negative (Negative) 02/02/22 12:47 Urine Ketones Negative (Negative) 02/02/22 12:47 Urine Blood 2+ (Negative) H 02/02/22 12:47 Urine Nitrite Negative (Negative) 02/02/22 12:47 Ur Leukocyte Esterase 1+ (Negative) H 02/02/22 12:47 Urine RBC 5-10 /HPF (NONE SEEN) H 02/02/22 12:45 Urine WBC 10-20 /HPF (<5) H 02/02/22 12:45 Ur Squamous Epith Cells <5 /HPF (NONE SEEN) 02/02/22 12:45 Ur Urothelial Cells <5 /HPF (NONE SEEN) 02/02/22 12:45 Urine Bacteria 20-50 /HPF (NONE SEEN) H 02/02/22 12:45 Urine Culture Reflexed Not needed 02/02/22 12:45 Urine Total Protein 1+ (Negative) H 02/02/22 12:47 SARS-CoV-2 Rap RNA(RT-PCR) Negative (NEGATIVE) 02/02/22 12:01 Smear Scan Diff (OK) 02/02/22 12:00 Microbiology Data (last 24 hrs): 02/02/22 12:15 Blood - Blood Aerobic Blood Culture - Final Proteus Mirabilis 02/02/22 12:15 Blood - Blood Blood Culture Gram Stain - Final 02/02/22 12:15 Blood - Blood Anaerobic Blood Culture - Final Proteus Mirabilis 02/02/22 12:15 Blood - Blood Gram Stain - Final 02/02/22 12:00 Blood - Blood Aerobic Blood Culture - Final Proteus Mirabilis 02/02/22 12:00 Blood - Blood Blood Culture Gram Stain - Final 02/02/22 12:00 Blood - Blood Anaerobic Blood Culture - Final Proteus Mirabilis 02/02/22 12:00 Blood - Blood Gram Stain - Final Assessment And Plan - Plan Physical exam: General: Alert, In no apparent distress, Oriented x3, Obese HEENT: Atraumatic, Normocephalic. Skin irritation noted on patient's upper vermilion border extending up to the base of nostril. Neck: Supple Respiratory: Normal air movement Cardiovascular: Normal pulses, Regular rate/rhythm Capillary refill: <2 Seconds Gastrointestinal: Normal bowel sounds, Soft and benign Musculoskeletal: No clubbing, No swelling, No contractures Integumentary: No rashes, No breakdown, No significant lesion Antibiotics: Azactam: 02/03-current Levaquin: Assessment/plan Urosepsis Blood cultures obtained on 02/02 grew Proteus mirabilis in 4/4 bottles, pansensitive. Urinalysis grew mixed irene. -recommend continuing azactam. Can potentially discharge on oral antibiotics after 3 to 4 days of IV. -CT abdomen pelvis negative for stone/obstructive uropathy. Patient denies history of BPH. Recommend outpatient follow-up with urology Leukocytosis with bandemia Downtrending, continue to monitor Prediabetes, hypertension Medical management per primary team Plan of care discussed with Dr. Blair Thank you for consultation
[2022-02-04] MEDS: DIPHENHYDRAMINE 50 MG/ML VIAL ONE ×2 (18:25→18:27)
[2022-02-04] MEDS: carvediloL 12.5 MG TAB PO SCH (21:46)
[2022-02-05] MEDS: AZTREONAM 1 GM in NA CHLORIDE 0.9% 100 ML IV SCH ×2 (01:03→09:28)
[2022-02-05 04:29] LABS: Absolute Lymphocytes (CBC) 1.4 K/uL (0.7-4.9); Hematocrit 39.6 % (39.6-49.0); Lymphocytes % 13.6 % (15.3-44.8); MPV 11.6 fL (7.6-11.3); RBC Red Blood Cell Count 4.62 M/uL (4.33-5.43)
[2022-02-05 04:43] LABS: Albumin 2.4 g/dL (3.4-5.0); Bilirubin Total 0.6 mg/dL (0.2-1.0); Magnesium 2.1 mg/dL (1.8-2.4); Potassium 3.8 mmol/L (3.5-5.1); Protein, Total 6.3 g/dL (6.4-8.2)
--- NOTE | 2022-02-05 07:17 | P.PN ---
Date of Service: 02/05/22 Subjective: improving, still with some dysuria but improving no new symptoms ROS: 10 point ROS as noted above, otherwise negative Physical exam GEN: Alert, oriented, NAD HEENT: Normal conjunctiva, sclera anicteric CV: Regular rate and rhythm, no edema Pulm: Nonlabored respirations on room air ABD: Soft, nontender, nondistended Neuro: Normal speech, normal affect Problem List sepsis secondary to UTI, with GNR bacteremia HTN Pre-DM2 elevated LFTs; h/o fatty liver blood: proteus x4 received 1 dose levaquin, changed to aztreonam; ID consulted appetite improved; BP improved diet as tolerated pain meds for dysuria insulin sliding scale continue home meds leukocytosis improved LFTs uptrending, suspect secondary to azactam, will switch to levaquin does not need PICC, levaquin should be sufficient, treat full 14days Dispo: home, ~1 day Time Spent Managing Pts Care (In Minutes): 35
[2022-02-05] MEDS: INSULIN -REGULAR HUMAN 50 UNIT/0.5 ML ML SQ SCH ×4 (07:30→20:13)
[2022-02-05] MEDS ORDERED: POTASSIUM CL SA 10 MEQ TAB PO ONE (09:00)
[2022-02-05] MEDS: ENOXAPARIN 40 MG/0.4 ML SQ SCH (09:00)
[2022-02-05] MEDS: carvediloL 12.5 MG TAB PO SCH ×2 (09:27→20:09)
[2022-02-05] MEDS: PHENAZOPYRIDINE 100MG TAB PO PRN (10:01)
[2022-02-05] MEDS: levoFLOXacin 750 MG TAB PO SCH (15:27)
--- NOTE | 2022-02-05 17:34 | P.PN ---
Subjective Date of Service: 02/05/22 Chief Complaint: Fever and chills Patient seen and examined at bedside, no acute events. Review of Systems 10-point ROS is otherwise unremarkable Physical Examination - Vital Signs Temperature: 97.8 F Blood Pressure: 155/81 Pulse: 55 Respirations: 18 Pulse Ox (%): 98 - Studies Laboratory Last Values WBC 8.0 K/uL (4.3-10.9) 02/02/22 12:00 RBC 5.41 M/uL (4.33-5.43) 02/02/22 12:00 Hgb 15.5 g/dL (13.6-17.9) 02/02/22 12:00 Hct 46.0 % (39.6-49.0) 02/02/22 12:00 MCV 85.0 fL (80-100) 02/02/22 12:00 MCH 28.5 pg (27.0-35.0) 02/02/22 12:00 MCHC 33.6 g/dL (32.0-36.0) 02/02/22 12:00 RDW 14.2 % (12.1-15.2) 02/02/22 12:00 Plt Count 119 K/uL (152-406) L 02/02/22 12:00 MPV 10.3 fL (7.6-11.3) 02/02/22 12:00 Neutrophils % 95.2 % (41.7-73.7) H 02/02/22 12:00 Lymphocytes % 3.8 % (15.3-44.8) L 02/02/22 12:00 Monocytes % 0.7 % (3.3-12.3) L 02/02/22 12:00 Eosinophils % 0.1 % (0-4.4) 02/02/22 12:00 Basophils % 0.2 % (0-1.3) 02/02/22 12:00 Absolute Neutrophils 7.6 K/uL (1.8-8.0) 02/02/22 12:00 Segmented Neutrophils 83 % (40-80) H 02/02/22 12:00 Band Neutrophils 8 % (0-1) H 02/02/22 12:00 Absolute Lymphocytes 0.3 K/uL (0.7-4.9) L 02/02/22 12:00 Lymphocytes 8 % (15-42) L 02/02/22 12:00 Monocytes 0 % (0-10) 02/02/22 12:00 Absolute Monocytes 0.1 K/uL (0.1-1.3) 02/02/22 12:00 Eosinophils 1 % (0-3) 02/02/22 12:00 Absolute Eosinophils 0.0 K/uL (0-0.5) 02/02/22 12:00 Absolute Basophils 0.0 K/uL (0-0.5) 02/02/22 12:00 Platelet Estimate Adeq 02/02/22 12:00 Morphology Comment Not seen (NOT SEEN) 02/02/22 12:00 PT 12.5 SECONDS (9.5-12.5) 02/02/22 12:00 INR 1.13 02/02/22 12:00 APTT 26.2 SECONDS (24.3-36.9) 02/02/22 12:00 Sodium 134 mmol/L (136-145) L 02/02/22 12:00 Potassium 3.4 mmol/L (3.5-5.1) L 02/02/22 12:00 Chloride 100 mmol/L (98-107) 02/02/22 12:00 Carbon Dioxide 24 mmol/L (21-32) 02/02/22 12:00 Anion Gap 13.4 mEq/L (5.0-15.0) 02/02/22 12:00 BUN 18 mg/dL (7-18) 02/02/22 12:00 Creatinine 0.96 mg/dL (0.55-1.3) 02/02/22 12:00 Est GFR (CKD-EPI) 89 ml/min (=/>90) L 02/02/22 12:00 Glucose 129 mg/dL (74-106) H 02/02/22 12:00 Lactic Acid 1.8 mmol/L (0.4-2.0) 02/02/22 12:00 Calcium 8.5 mg/dL (8.5-10.1) 02/02/22 12:00 Total Bilirubin 1.3 mg/dL (0.2-1.0) H 02/02/22 12:00 AST 13 U/L (15-37) L 02/02/22 12:00 ALT 49 U/L (12-78) 02/02/22 12:00 Alkaline Phosphatase 64 U/L (45-117) 02/02/22 12:00 NT-Pro-B Natriuret Pep 193 pg/mL (<125) H 02/02/22 12:00 Serum Total Protein 7.5 g/dL (6.4-8.2) 02/02/22 12:00 Albumin 3.7 g/dL (3.4-5.0) 02/02/22 12:00 Globulin 3.8 g/dL (2.3-3.5) H 02/02/22 12:00 Albumin/Globulin Ratio 1.0 (1.1-1.8) L 02/02/22 12:00 Urine pH 7.0 (5.0-7.0) 02/02/22 12:47 Ur Specific [place] 1.020 (1.005-1.030) 02/02/22 12:47 Glucose (UA)(Auto) Negative (Negative) 02/02/22 12:47 Urine Ketones Negative (Negative) 02/02/22 12:47 Urine Blood 2+ (Negative) H 02/02/22 12:47 Urine Nitrite Negative (Negative) 02/02/22 12:47 Ur Leukocyte Esterase 1+ (Negative) H 02/02/22 12:47 Urine RBC 5-10 /HPF (NONE SEEN) H 02/02/22 12:45 Urine WBC 10-20 /HPF (<5) H 02/02/22 12:45 Ur Squamous Epith Cells <5 /HPF (NONE SEEN) 02/02/22 12:45 Ur Urothelial Cells <5 /HPF (NONE SEEN) 02/02/22 12:45 Urine Bacteria 20-50 /HPF (NONE SEEN) H 02/02/22 12:45 Urine Culture Reflexed Not needed 02/02/22 12:45 Urine Total Protein 1+ (Negative) H 02/02/22 12:47 SARS-CoV-2 Rap RNA(RT-PCR) Negative (NEGATIVE) 02/02/22 12:01 Smear Scan Diff (OK) 02/02/22 12:00 Microbiology Data (last 24 hrs): 02/02/22 12:45 Clean Catch Urine [place] Count - Final <10,000 CFU/ML. 02/02/22 12:45 Clean Catch Urine - Final MIXED IRENE. Assessment And Plan - Plan Physical exam: General: Alert, In no apparent distress, Oriented x3, Obese HEENT: Atraumatic, Normocephalic. Skin irritation noted on patient's upper vermilion border extending up to the base of nostril. Neck: Supple Respiratory: Normal air movement Cardiovascular: Normal pulses, Regular rate/rhythm Capillary refill: <2 Seconds Gastrointestinal: Normal bowel sounds, Soft and benign Musculoskeletal: No clubbing, No swelling, No contractures Integumentary: No rashes, No breakdown, No significant lesion Antibiotics: Azactam: 02/03-02/05 Levaquin: . Restart: urrent Assessment/plan Urosepsis Blood cultures obtained on 02/02 grew Proteus mirabilis in 4/4 bottles, pansensitive. Urinalysis grew mixed irene. -Patient was on Azactam however due to increasing LFTs was discontinued and Levaquin resumed. Recommend monitoring patient on oral Levaquin for 24 hours then can DC him home on oral Levaquin with a tentative antibiotic completion date of 02/14. -CT abdomen pelvis negative for stone/obstructive uropathy. Patient denies history of BPH. Recommend outpatient follow-up with urology Leukocytosis with bandemia Resolved Prediabetes, hypertension Medical management per primary team Plan of care discussed with Dr. Blair Thank you for consultation
[2022-02-06 05:07] VITALS: BMI 39.1
--- NOTE | 2022-02-06 06:29 | EKG ---
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
[2022-02-06 06:43] LABS: Absolute Lymphocytes (CBC) 1.8 K/uL (0.7-4.9); Hematocrit 41.7 % (39.6-49.0); Lymphocytes % 20.6 % (15.3-44.8); MPV 10.6 fL (7.6-11.3); RBC Red Blood Cell Count 4.93 M/uL (4.33-5.43)
[2022-02-06 06:46] LABS: Albumin 2.9 g/dL (3.4-5.0); Bilirubin Total 0.6 mg/dL (0.2-1.0); Magnesium 1.9 mg/dL (1.8-2.4); Protein, Total 7.4 g/dL (6.4-8.2)
[2022-02-06] MEDS: HYDROCODONE/APAP 5/325 MG TAB PO PRN (06:51)
[2022-02-06] MEDS: INSULIN -REGULAR HUMAN 50 UNIT/0.5 ML ML SQ SCH ×3 (07:30→16:30)
[2022-02-06 08:53] LABS: Blood Morphology Comment NOT SEEN (NOT SEEN); Platelet Estimate DECR
[2022-02-06] MEDS: carvediloL 12.5 MG TAB PO SCH (09:00)
[2022-02-06] MEDS ORDERED: LOSARTAN POTASSIUM 50 MG TABLET PO SCH (09:00)
--- NOTE | 2022-02-06 09:57 | RAD REPORT ---
EXAM DESCRIPTION: US - Liver Only - 02/06/2022 9:45 am CLINICAL HISTORY: elevated LFTs, h/o fatty liver COMPARISON: Abdomen Pelvis W Contrast dated 05/28/2021 TECHNIQUE: Sonographic evaluation of the right upper quadrant was performed as a dedicated liver ult rasound study. FINDINGS: Coarse increased echogenicity seen throughout the hepatic parenchyma. This decreases sonog raphic penetrance. Pattern is typical for diffuse fatty infiltration which has been previously diagno sed in this patient. A focal liver lesion is not identified. The liver is prominent at 19 cm. Doppler evaluation shows no portal vein abnormality. Spleen is 10-11 mm with no focal splenic abnormality. No ascites or lymphadenopathy of the upper abdo men. IMPRESSION: Diffuse fatty infiltration of a prominent size liver. No focal liver lesions seen.
[2022-02-06] MEDS: levoFLOXacin 750 MG TAB PO SCH (10:37)
[2022-02-06] MEDS: ENOXAPARIN 40 MG/0.4 ML SQ SCH (10:39)
[2022-02-06] MEDS ORDERED: VALACYCLOVIR 500 MG TAB PO ONE (15:00)
[2022-02-06 16:33] VITALS: BP 186/88; TEMP 97.8
--- NOTE | 2022-02-06 16:34 | P.PN ---
Subjective Date of Service: 02/06/22 Chief Complaint: Fever and chills Subjective: Improving Patient seen and examined at bedside, plan for DC today. Review of Systems 10-point ROS is otherwise unremarkable Physical Examination - Vital Signs Temperature: 97.8 F Blood Pressure: 186/88 Pulse: 57 Respirations: 16 Pulse Ox (%): 94 - Studies Laboratory Last Values WBC 8.0 K/uL (4.3-10.9) 02/02/22 12:00 RBC 5.41 M/uL (4.33-5.43) 02/02/22 12:00 Hgb 15.5 g/dL (13.6-17.9) 02/02/22 12:00 Hct 46.0 % (39.6-49.0) 02/02/22 12:00 MCV 85.0 fL (80-100) 02/02/22 12:00 MCH 28.5 pg (27.0-35.0) 02/02/22 12:00 MCHC 33.6 g/dL (32.0-36.0) 02/02/22 12:00 RDW 14.2 % (12.1-15.2) 02/02/22 12:00 Plt Count 119 K/uL (152-406) L 02/02/22 12:00 MPV 10.3 fL (7.6-11.3) 02/02/22 12:00 Neutrophils % 95.2 % (41.7-73.7) H 02/02/22 12:00 Lymphocytes % 3.8 % (15.3-44.8) L 02/02/22 12:00 Monocytes % 0.7 % (3.3-12.3) L 02/02/22 12:00 Eosinophils % 0.1 % (0-4.4) 02/02/22 12:00 Basophils % 0.2 % (0-1.3) 02/02/22 12:00 Absolute Neutrophils 7.6 K/uL (1.8-8.0) 02/02/22 12:00 Segmented Neutrophils 83 % (40-80) H 02/02/22 12:00 Band Neutrophils 8 % (0-1) H 02/02/22 12:00 Absolute Lymphocytes 0.3 K/uL (0.7-4.9) L 02/02/22 12:00 Lymphocytes 8 % (15-42) L 02/02/22 12:00 Monocytes 0 % (0-10) 02/02/22 12:00 Absolute Monocytes 0.1 K/uL (0.1-1.3) 02/02/22 12:00 Eosinophils 1 % (0-3) 02/02/22 12:00 Absolute Eosinophils 0.0 K/uL (0-0.5) 02/02/22 12:00 Absolute Basophils 0.0 K/uL (0-0.5) 02/02/22 12:00 Platelet Estimate Adeq 02/02/22 12:00 Morphology Comment Not seen (NOT SEEN) 02/02/22 12:00 PT 12.5 SECONDS (9.5-12.5) 02/02/22 12:00 INR 1.13 02/02/22 12:00 APTT 26.2 SECONDS (24.3-36.9) 02/02/22 12:00 Sodium 134 mmol/L (136-145) L 02/02/22 12:00 Potassium 3.4 mmol/L (3.5-5.1) L 02/02/22 12:00 Chloride 100 mmol/L (98-107) 02/02/22 12:00 Carbon Dioxide 24 mmol/L (21-32) 02/02/22 12:00 Anion Gap 13.4 mEq/L (5.0-15.0) 02/02/22 12:00 BUN 18 mg/dL (7-18) 02/02/22 12:00 Creatinine 0.96 mg/dL (0.55-1.3) 02/02/22 12:00 Est GFR (CKD-EPI) 89 ml/min (=/>90) L 02/02/22 12:00 Glucose 129 mg/dL (74-106) H 02/02/22 12:00 Lactic Acid 1.8 mmol/L (0.4-2.0) 02/02/22 12:00 Calcium 8.5 mg/dL (8.5-10.1) 02/02/22 12:00 Total Bilirubin 1.3 mg/dL (0.2-1.0) H 02/02/22 12:00 AST 13 U/L (15-37) L 02/02/22 12:00 ALT 49 U/L (12-78) 02/02/22 12:00 Alkaline Phosphatase 64 U/L (45-117) 02/02/22 12:00 NT-Pro-B Natriuret Pep 193 pg/mL (<125) H 02/02/22 12:00 Serum Total Protein 7.5 g/dL (6.4-8.2) 02/02/22 12:00 Albumin 3.7 g/dL (3.4-5.0) 02/02/22 12:00 Globulin 3.8 g/dL (2.3-3.5) H 02/02/22 12:00 Albumin/Globulin Ratio 1.0 (1.1-1.8) L 02/02/22 12:00 Urine pH 7.0 (5.0-7.0) 02/02/22 12:47 Ur Specific [place] 1.020 (1.005-1.030) 02/02/22 12:47 Glucose (UA)(Auto) Negative (Negative) 02/02/22 12:47 Urine Ketones Negative (Negative) 02/02/22 12:47 Urine Blood 2+ (Negative) H 02/02/22 12:47 Urine Nitrite Negative (Negative) 02/02/22 12:47 Ur Leukocyte Esterase 1+ (Negative) H 02/02/22 12:47 Urine RBC 5-10 /HPF (NONE SEEN) H 02/02/22 12:45 Urine WBC 10-20 /HPF (<5) H 02/02/22 12:45 Ur Squamous Epith Cells <5 /HPF (NONE SEEN) 02/02/22 12:45 Ur Urothelial Cells <5 /HPF (NONE SEEN) 02/02/22 12:45 Urine Bacteria 20-50 /HPF (NONE SEEN) H 02/02/22 12:45 Urine Culture Reflexed Not needed 02/02/22 12:45 Urine Total Protein 1+ (Negative) H 02/02/22 12:47 SARS-CoV-2 Rap RNA(RT-PCR) Negative (NEGATIVE) 02/02/22 12:01 Smear Scan Diff (OK) 02/02/22 12:00 Assessment And Plan - Plan Physical exam: General: Alert, In no apparent distress, Oriented x3, Obese HEENT: Atraumatic, Normocephalic. Skin irritation noted on patient's upper vermilion border extending up to the base of nostril. Neck: Supple Respiratory: Normal air movement Cardiovascular: Normal pulses, Regular rate/rhythm Capillary refill: <2 Seconds Gastrointestinal: Normal bowel sounds, Soft and benign Musculoskeletal: No clubbing, No swelling, No contractures Integumentary: No rashes, No breakdown, No significant lesion Antibiotics: Azactam: 02/03-02/05 Levaquin: . Restart: urrent Assessment/plan Urosepsis Blood cultures obtained on 02/02 grew Proteus mirabilis in 4/4 bottles, pansensitive. Urinalysis grew mixed irene. -Patient was on Azactam however due to increasing LFTs was discontinued and Levaquin resumed. Recommend monitoring patient on oral Levaquin for 24 hours then can DC him home on oral Levaquin with a tentative antibiotic completion date of 02/14. -CT abdomen pelvis negative for stone/obstructive uropathy. Patient denies history of BPH. Recommend outpatient follow-up with urology Leukocytosis with bandemia Resolved Prediabetes, hypertension Medical management per primary team Plan of care discussed with Dr. Blair Thank you for consultation
--- NOTE | 2022-02-06 20:08 | P.DS ---
Admission Date: 02/02/22 Discharge Date: 02/06/22 Disposition: ROUTINE DISCHARGE Discharge Condition: GOOD Reason for Admission: Fever and chills Consultations: Infectious Disease Brief History of Present Illness: 61yo M, PMH: HTN, prediabetic Presented to ED with 1 day of fever/chills, with rigors noticed at [facility]. Work-up in the ED revealed UTI / sepsis. CT abdomen pelvis is unremarkable, no kidney stones or obstructive uropathy. He has sigmoid diverticulosis without evidence of diverticulitis. He denied any flank pain but endorsed dysuria and increased urinary frequency. Patient given IV Rocephin and IV fluid. He is admitted for further management. Hospital Course: Problem List sepsis secondary to UTI, with GNR bacteremia HTN Pre-DM2 elevated LFTs; h/o fatty liver Patient was diagnosed and treated for Pyelonephritis. Blood cultures grew Proteus. Infectious disease was consulted. Sensitivities were reviewed, patient was treated with IV antibiotics and improved. Sensitivities were reviewed and he was transitioned to levaquin. Discharged home with levaquin - to complete total of 14 day treatment. He was briefly treated with azactam, and on day 2-3 his LFTs were noted to slightly increase. CT Abd on admission revealed known fatty liver. U/S on 02/06 did not show anything new/different. Suspected rise in LFTs were due to azactam, which was discontinued and switched to levaquin. Recommend follow up with PCP in ~1 week with repeat bloodwork. 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 He was given 2000mg valtrex x1 on 02/06 and prescribed a second dose to take on 02/07. Vital Signs/Physical Exam: Temp Pulse Resp BP Pulse Ox 97.8 F 57 16 186/88 H 94 02/06/22 16:34 02/06/22 16:34 02/06/22 16:34 02/06/22 16:34 02/06/22 16:34 Physical exam GEN: Alert, oriented, NAD HEENT: Normal conjunctiva, sclera anicteric CV: Regular rate and rhythm, no edema Pulm: Nonlabored respirations on room air ABD: Soft, nontender, nondistended Neuro: Normal speech, normal affect Laboratory Data at Discharge: WBC 8.5 K/uL (4.3-10.9) D 02/06/22 06:02 Hgb 14.2 g/dL (13.6-17.9) 02/06/22 06:02 Hct 41.7 % (39.6-49.0) 02/06/22 06:02 Plt Count 132 K/uL (152-406) L D 02/06/22 06:02 PT 12.5 SECONDS (9.5-12.5) 02/02/22 12:00 INR 1.13 02/02/22 12:00 APTT 26.2 SECONDS (24.3-36.9) 02/02/22 12:00 Sodium 139 mmol/L (136-145) 02/06/22 06:02 Potassium 4.0 mmol/L (3.5-5.1) 02/06/22 06:02 BUN 14 mg/dL (7-18) 02/06/22 06:02 Creatinine 0.89 mg/dL (0.55-1.3) 02/06/22 06:02 Glucose 109 mg/dL (74-106) H 02/06/22 06:02 Phosphorus 3.8 mg/dL (2.5-4.9) 02/03/22 05:18 Magnesium 1.9 mg/dL (1.8-2.4) 02/06/22 06:02 Total Bilirubin 0.6 mg/dL (0.2-1.0) 02/06/22 06:02 AST 85 U/L (15-37) H 02/06/22 06:02 ALT 281 U/L (12-78) H 02/06/22 06:02 Alkaline Phosphatase 167 U/L (45-117) H 02/06/22 06:02 Home Medications: Carvedilol [Coreg] 12.5 mg PO BID 05/29/21 Losartan Potassium 100 mg PO DAILY 05/29/21 Metformin HCl [Metformin HCl ER] 750 mg PO DAILY 05/29/21 Rosuvastatin Calcium 5 mg PO DAILY 05/29/21 Phenazopyrididine [Pyridium*] 100 mg PO TID PRN 5 Days #15 tab 02/06/22 Valacyclovir HCl [Valtrex] 2 tab PO ONCE 1 Days #2 tablet 02/06/22 levoFLOXacin [Levaquin*] 750 mg PO DAILY 8 Days #8 tab 02/06/22 New Medications: levoFLOXacin [Levaquin*] 750 mg PO DAILY 8 Days #8 tab Phenazopyrididine [Pyridium*] 100 mg PO TID PRN 5 Days #15 tab PRN Reason: Dysuria Valacyclovir HCl [Valtrex] 2 tab PO ONCE 1 Days #2 tablet Physician Discharge Instructions: Patient was diagnosed and treated for Pyelonephritis. Blood cultures grew Proteus. Infectious disease was consulted. Sensitivities were reviewed, patient was treated with IV antibiotics and improved. Sensitivities were reviewed and he was transitioned to levaquin. Discharged home with levaquin - to complete total of 14 day treatment. He was briefly treated with azactam, and on day 2-3 his LFTs were noted to slightly increase. CT Abd on admission revealed known fatty liver. U/S on 02/06 did not show anything new/different. Suspected rise in LFTs were due to azactam, which was discontinued and switched to levaquin. Recommend follow up with PCP in ~1 week with repeat bloodwork. 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 He was given 2000mg valtrex x1 on 02/06 and prescribed a second dose to take on 02/07. Followup: NONE,NONE [Primary Care Provider] - Time spent managing pt's care (in minutes): 45
== END 2022-02-06 17:00 | disposition home or self-care (01) | DRG 872 ==
LOC: ER 11:27 → ERHOLD 14:57 → 2ND 16:33
PROVIDERS: ADMIT Internal Medicine; ATTEND Internal Medicine
DX: A41.59 Other Gram-negative sepsis (principal); N12 Tubulo-interstitial nephritis, not specified as acute or chronic; N17.9 Acute kidney failure, unspecified; I10 Essential (primary) hypertension; E11.9 Type 2 diabetes mellitus without complications; K57.30 Diverticulosis of large intestine without perforation or abscess without bleeding; R79.89 Other specified abnormal findings of blood chemistry; T36.1X5A Adverse effect of cephalosporins and other beta-lactam antibiotics, initial encounter; Y92.230 Patient room in hospital as the place of occurrence of the external cause; B00.1 Herpesviral vesicular dermatitis; K76.0 Fatty (change of) liver, not elsewhere classified; E66.9 Obesity, unspecified; Z68.39 Body mass index [BMI] 39.0-39.9, adult; Z88.0 Allergy status to penicillin; Z20.822 Contact with and (suspected) exposure to COVID-19
CPT/HCPCS: 36415; 70450; 71045; 74176; 76377; 76705; 80053; 81003; 81015; 82248; 82947; 83605; 83735; 83880; 84100; 85025; 85610; 85730; 87040; 87077; 87086; 87088; 87186; 87205; 87804; 93005; 96365; 99285; J1170; J1200; J1650; J1815; J3475; J7030; U0003